=== PATIENT | female | born 1965 | race Caucasian/White ===

== ENCOUNTER 2019-01-27 09:33 | Day surgery (SDC) | payer BC ==
[2019-01-25 14:13] VITALS: BMI 35.8
[~2019-01-27 09:33] MED LIST: LACTATED RINGERS 1,000 ML IV SCH; LIDOCAINE 1% 20 ML VIAL (10MG/ML) FOR IV START INTRADERMA PRN
[2019-01-27 09:55] VITALS: RESP 16; TEMP 98.2
[2019-01-27] MEDS ORDERED: MIDAZOLAM 2 MG/2 ML VIAL ONE (10:38)
[2019-01-27] MEDS ORDERED: fentaNYL (PF) 50 MCG/ML 2 ML AMP ONE (10:38)
[2019-01-27] MEDS ORDERED: PROPOFOL 10 MG/ML 20 ML VIAL IV ONE (10:38)
[2019-01-27 11:21] VITALS: PULSE 74
--- NOTE | 2019-01-27 11:22 | P.PCN ---
Date of Procedure: 01/27/19 Description of Procedure: BRIEF HISTORY: 53-year-old female presents for outpatient screening colonoscopy. The patient reports that she has had a prior colonoscopy approximately 5 years ago when she had a flare of diarrhea which was attributed to a viral/bacterial illness. She denies any change in bowel habits, blood per rectum or diarrhea. She does report chronic constipation at baseline and can go as little as once per week. No family history of colon cancer. PROCEDURE PERFORMED: Colonoscopy. PREOPERATIVE DIAGNOSIS: Screening for malignant neoplasm of the colon, prior colonoscopy approximately 5 years ago for evaluation of diarrhea. ESTIMATED BLOOD LOSS: Minimal. IV sedation per Anesthesia. PROCEDURE: After informed consent was obtained, the patient, was brought into the endoscopy unit. IV sedation was administered by Anesthesia under continuous monitoring. Digital rectal examination was normal. Initially the Olympus CF-190 flexible video colonoscope was then inserted in the rectum, gradually advanced into the cecum without any difficulty. The terminal ileum was intubated and appeared normal. Retroflexion in the cecum was performed with no polyps noted. Careful examination was performed as the scope was gradually being withdrawn. Ileocecal valve and the appendiceal orifice were visualized and appeared normal. Prep was excellent. Mucosa of the cecum, ascending colon, transverse colon, descending colon, sigmoid colon, and rectum appeared normal. A few small diverticula were noted in the sigmoid colon. Mild internal hemorrhoids. Retroflexion was performed in the rectum and no lesions were seen. The patient tolerated the procedure well. IMPRESSION: Normal-appearing colon from rectum to cecum. Mild internal hemorrhoids. Mild sigmoid diverticulosis. RECOMMENDATIONS: Findings of this examination were discussed with the patient. At this time would recommend high-fiber diet. Repeat colonoscopy in 10 years unless signs or symptoms which warrant endoscopic evaluation developed. Have recommended patient started supplementation with MiraLAX for constipation. Follow up with gastroenterology as needed.
[2019-01-27 11:35] VITALS: BP 119/81
== END 2019-01-27 11:49 | disposition home or self-care (01) ==
LOC: ORWHC2ENDO 09:33 → MERGE 13:50
PROVIDERS: ATTEND Internal Medicine
DX: K57.30 Diverticulosis of large intestine without perforation or abscess without bleeding (principal); K64.8 Other hemorrhoids; F17.210 Nicotine dependence, cigarettes, uncomplicated; Z79.1 Long term (current) use of non-steroidal anti-inflammatories (NSAID); Z79.891 Long term (current) use of opiate analgesic; Z79.899 Other long term (current) drug therapy; Z90.49 Acquired absence of other specified parts of digestive tract
CPT/HCPCS: 81025; 45378; J2250; J3010; J2704

== ENCOUNTER → 2023-05-07 | Outpatient (CLI) | payer BC, OTHER ==
--- NOTE | 2023-05-07 09:12 | MM ---
Reason for Exam: Clinical finding. Last mammogram was performed 3 year(s) and 3 month(s) ago. Indicated Problems: Lump or thickening of the left side for 5 Day(s). Patient History: Menarche at age 17. First Full-Term at age 27. Postmenopausal. Risk Values: Dayan 5 year model risk: 1.2%. NCI Lifetime model risk: 8.3%. Prior Study Comparison: 02/08/2020 Bilateral Diagnostic Mammogram, [facility]. Tissue Density: The breast tissue is heterogeneously dense. This may lower the sensitivity of mammography. Findings: Analyzed By CAD. Asymmetric density lower inner quadrant right breast middle depth does not persist on additional views. Low density circumscribed mass upper outer quadrant left breast measuring 2.8 cm may be slightly larger. Features suggest a possible cyst. However, there is a new mass posterior upper outer quadrant near the axillary tail measuring 4.4 cm for which further evaluation is recommended. Overall Assessment: Incomplete: need additional imaging evaluation, BI-RAD 0 Management: Diagnostic Breast Ultrasound of the left breast. Electronically signed and approved by: Benjamin Way M.D. Radiologist
--- NOTE | 2023-05-07 10:02 | USB ---
Reason for Exam: Clinical finding. Patient History: Menarche at age 17. First Full-Term at age 27. Postmenopausal. Risk Values: Dayan 5 year model risk: 1.2%. NCI Lifetime model risk: 8.3%. Technique: Method: Whole Breast Handheld. Prior Study Comparison: 02/08/2020 Bilateral Diagnostic Mammogram, [facility]. Findings: The whole breast of the left breast, the axilla of the left breast and the retroareolar of the left breast were scanned. A complete US of all four quadrants of the breast, axilla, and retro-areolar region were reviewed. At the 2:00 position, 10 cm from the nipple, there is a lobulated hypoechoic mass measuring 4.3 x 3.3 x 2.0 cm with some internal vascularity. Tissue sampling is advised. At the 3:00 position, 5 cm from the nipple, possible enlarged lymph node measuring 1.9 x 3.3 x 1.1 cm. There seems to be cortical thickening up to 4 mm. Given the size and mild cortical thickening, tissue sampling recommended. No other solid or cystic lesion. No axillary lymphadenopathy. Overall Assessment: Highly suggestive of malignancy, BI-RAD 5 Management: Ultrasound Core Biopsy of the left breast. 2 sites Results were given to the patient verbally at the time of exam. Electronically signed and approved by: Benjamin Way M.D. Radiologist
== END | disposition home or self-care (01) ==
LOC: RADMAMWWP 08:10
PROVIDERS: ATTEND Family Medicine
DX: N63.21 Unspecified lump in the left breast, upper outer quadrant (principal); Z78.0 Asymptomatic menopausal state
CPT/HCPCS: 77062; 77066

== ENCOUNTER → 2023-05-13 | Day surgery (SDC) | payer BC, OTHER ==
--- NOTE | 2023-05-19 10:37 | MM ---
Reason for Exam: Post Procedure Mammogram. Last screening mammogram was performed less than 1 month ago. Patient History: Menarche at age 17. First Full-Term at age 27. Postmenopausal. Risk Values: Dayan 5 year model risk: 1.2%. NCI Lifetime model risk: 8.3%. Prior Study Comparison: 02/08/2020 Bilateral Diagnostic Mammogram, [facility]. 05/07/2023 Bilateral MG 3D diag mammo w/cad RADHA, [facility]. Tissue Density: Left: The breast tissue is heterogeneously dense. This may lower the sensitivity of mammography. Pathology Description: Location: 3 o'clock. Marker Left Behind. Needle Type: Celero Cores: 3 Gauge: 12 Pathology Description: Location: 2 o'clock. Marker Left Behind. Needle Type: Celero Cores: 3 Gauge: 12 The procedure of ultrasound guided core biopsy was explained to the patient. Benefits, alternatives, and risks were discussed. An informed consent was then obtained. The patient was placed in supine positioning for imaging and for the procedure. The overlying skin was prepped and draped in usual sterile fashion. Lidocaine buffered with bicarbonate was used as anesthetic into the skin and subcutaneous tissue up to area of concern in the left 2:00 and 3:00 locations. Under ultrasound guidance, a 12-gauge vacuum assisted biopsy gun device was used to obtain 3 core samples from each site. Following this, a biopsy clipswas were deployed in each lesion. The patient tolerated the procedure well without any immediate complication. The patient was kept in the radiology department for short stay after the procedure and then discharged home in stable condition. Postprocedure mammogram: The patient was transferred to mammography for physician ordered post procedure mammogram for clip placement verification. Impression: Successful to site ultrasound guided core biopsy of the left breast at the 3:00 and 2:00 positions. Pathology results are pending. Pathology Results: Result: Malignant, Invasive ductal carcinoma. A. LEFT BREAST, TWO O'CLOCK POSITION, ULTRASOUND GUIDED CORE BIOPSY: Invasive high grade ductal carcinoma, grade 3, with abundant necrosis (see Surgical Pathology Cancer Case Summary and Comment). B. LEFT BREAST, THREE O'CLOCK POSITION, ULTRASOUND GUIDED CORE BIOPSY: Benign sclerotic fibroadenoma with focal microcalcification. Overall Assessment: Malignant Assessment: MG diagnostic mammo LT wo CAD. - Left: Known biopsy proven malignancy, BI-RAD 6. Management: Surgical Consultation of the left breast. Electronically signed and approved by: Bryan Tony M.D. Radiologis
== END | disposition home or self-care (01) ==
LOC: RADUSWWP 10:20
PROVIDERS: ATTEND Surgery
DX: C50.412 Malignant neoplasm of upper-outer quadrant of left female breast (principal); D24.2 Benign neoplasm of left breast; Z17.0 Estrogen receptor positive status [ER+]; Z78.0 Asymptomatic menopausal state
CPT/HCPCS: 88305; 88342; 88341; 77065; 19083; 19084; A4648

== ENCOUNTER → 2023-05-29 | Outpatient (CLI) | payer BC, OTHER ==
--- NOTE | 2023-05-30 12:08 | CA ---
Transthoracic Echo Report Name: Ibeth Menchaca Age: 57 Gender: F : 1965 Exam Date: 05/29/2023 16:20 Exam Location: [facility] Ht (in): 65 Wt (lb): 243 Ordering Physician: Дмитрий Farah MD Attending/Referring Phys: [employer] Equipment Mechanic Latricia Rose [facility] Procedure CPT: Indications: Z01.818 Chemo exposure Cardiac Hx: Technical Quality: Fair Contrast 1: Total Dose (mL): Contrast 2: Total Dose (mL): MEASUREMENTS (Male / Female) Normal Values 2D ECHO LV Diastolic Diameter PLAX 4.9 cm 4.2 - 5.9 / 3.9 - 5.3 cm LV Systolic Diameter PLAX 3.1 cm IVS Diastolic Thickness 1.0 cm 0.6 - 1.0 / 0.6 - 0.9 cm LVPW Diastolic Thickness 1.0 cm 0.6 - 1.0 / 0.6 - 0.9 cm LV Relative Wall Thickness 0.4 LV Diastolic Volume MOD BP 74.4 cm??? 67 - 155 / 56 - 104 cm??? LV Systolic Volume MOD BP 34.8 cm??? 22 - 58 / 19 - 49 cm??? LV Ejection Fraction MOD BP 53.3 % >= 55 % LV Cardiac Index MOD BP 1273.7 cm???/min???m??? LV Diastolic Volume MOD 4C 77.3 cm??? LV Systolic Volume MOD 4C 32.1 cm??? LV Ejection Fraction MOD 4C 58.4 % LV Cardiac Index MOD 4C 1449.7 cm???/min???m??? LV Diastolic Length 4C 7.4 cm LV Systolic Length 4C 5.7 cm LV Diastolic Volume MOD 2C 70.9 cm??? LV Systolic Volume MOD 2C 37.1 cm??? LV Ejection Fraction MOD 2C 47.7 % LV Cardiac Index MOD 2C 1086.0 cm???/min???m??? LV Diastolic Length 2C 7.2 cm LV Systolic Length 2C 6.0 cm Ascending Aorta Diameter 2.9 cm M-MODE Aortic Root Diameter MM 2.6 cm LA Systolic Diameter MM 3.9 cm LA Ao Ratio MM 1.5 AV Cusp Separation MM 1.8 cm DOPPLER AV Peak Velocity 153.8 cm/s AV Peak Gradient 9.5 mmHg AV Mean Velocity 113.0 cm/s AV Mean Gradient 5.6 mmHg AV Velocity Time Integral 33.9 cm LVOT Peak Velocity 105.8 cm/s LVOT Peak Gradient 4.5 mmHg LVOT Velocity Time Integral 22.8 cm Mitral E Point Velocity 75.0 cm/s Mitral A Point Velocity 84.0 cm/s Mitral E to A Ratio 0.9 MV Deceleration Time 205.7 ms LV E' Lateral Velocity 9.8 cm/s Mitral E to LV E' Lateral Ratio 7.6 LV E' Septal Velocity 7.5 cm/s Mitral E to LV E' Septal Ratio 9.9 Right Atrial Pressure 3.0 mmHg FINDINGS Left Ventricle Mildly increased left ventricular wall thickness. Left ventricular cavity size at the upper limits of normal. Normal left ventricular systolic function with no obvious regional wall motion abnormalities. Left ventricular ejection fraction is estimated at 55-60% Right Ventricle Normal right ventricular size. Right Atrium Normal right atrial size. Left Atrium Mild left atrial dilatation. Mitral Valve Structurally normal mitral valve. No mitral regurgitation. Aortic Valve Trileaflet aortic valve. No aortic regurgitation. Tricuspid Valve Structurally normal tricuspid valve. No tricuspid regurgitation. Pulmonic Valve Structurally normal pulmonic valve. No pulmonic regurgitation. Pericardium No pericardial effusion Aorta Normal size aortic root and proximal ascending aorta. CONCLUSIONS Left ventricular ejection fraction 55-60% Mildly increased left ventricular wall thickness No mitral regurgitation No tricuspid regurgitation No pericardial effusion Previewed by: Dr. Lester Cisneros DO (Electronically Signed) Final Date: 30 May 2023 12:07
--- NOTE | 2023-05-31 13:23 | CT ---
EXAMINATION TYPE: CT ChestAbdPelvis w con DATE OF EXAM: 05/29/2023 INDICATION: recent breast ca dx. COMPARISON: 09/07/2017 CT abdomen and pelvis CT DLP: 2166.30 mGycm CONTRAST: Performed with Oral Contrast and with IV Contrast, patient injected with 90 mL of Isovue 300. TECHNIQUE: Axial images at 5 mm thick sections. Reconstructed images in the coronal plane. Delayed images through the kidneys. FINDINGS: CT CHEST: Portion of the thyroid visualized is normal. No suspicious lung nodules or focal infiltrates are present. No enlarged mediastinal or hilar adenopathy is evident. The ascending aorta diameter at the level of the main pulmonary artery is 2.7 cm. The main pulmonary artery diameter at the bifurcation is 2.0 cm. There are 2 left breast masses. Suspicious left axillary lymphadenopathy is not evident. CT ABDOMEN: Liver: There is some mild fatty infiltration liver. Spleen: Normal Pancreas: Normal Adrenal glands: The adrenal glands are normal. Gallbladder: Normal Kidneys: No masses are evident. No hydronephrosis is present. Delayed images were obtained through the kidneys, small cortical renal cysts are identified on the delayed images. Aorta: Normal Inferior vena cava: Normal. CT PELVIS: Loops of bowel within the abdomen and pelvis are normal. There are loops of bowel which are incom pletely distended or lack oral contrast limiting their evaluation. Appendix: Normal as visualized. Urinary bladder: Normal. Genitourinary structures: Uterus is unremarkable. Adnexa are normal. Osseous structures: No suspicious lytic or sclerotic lesions. IMPRESSION: 1. No suspicious changes to suggest metastatic breast cancer. 2. Two masses within the left breast.
== END | disposition home or self-care (01) ==
LOC: RADCTMAIN 13:59
PROVIDERS: ATTEND Internal Medicine Hematology & Oncology
DX: Z01.818 Encounter for other preprocedural examination (principal); C50.412 Malignant neoplasm of upper-outer quadrant of left female breast; N63.20 Unspecified lump in the left breast, unspecified quadrant
CPT/HCPCS: 93306; 71260; 74177; Q9967

== ENCOUNTER 2023-06-04 12:17 | Day surgery (SDC) | payer BC, OTHER ==
[~2023-06-04 12:17] MED LIST changes: +ACETAMINOPHEN TAB 500 MG TAB PO PRN; +DEXAMETHASONE SOD PHOSPHATE 4 MG/ML 1 ML VIAL IV ONE; +HEPARIN SODIUM,PORCINE/PF 5,000 UNIT/0.5 ML SYRINGE SQ PRN; +HYDROmorphone 0.5 MG/0.5 ML SYRINGE IVP PRN; -LACTATED RINGERS 1,000 ML IV SCH; +LIDOCAINE 1% (10MG/ML) FOR IV START INTRADERMA PRN; -LIDOCAINE 1% 20 ML VIAL (10MG/ML) FOR IV START INTRADERMA PRN; +MIDAZOLAM 2 MG/2 ML VIAL IV PRN; +ONDANSETRON 4 MG/2 ML VIAL IVP ONE; +Pre Op ABX Message 1 EACH MISC MISCELLANE ONE
[2023-06-04 13:02] VITALS: RESP 16; TEMP 97.5
[2023-06-04] MEDS: LACTATED RINGERS 1,000 ML IV SCH ×2 (13:10→17:06)
--- NOTE | 2023-06-04 15:35 | P.GSHP ---
History of Present Illness H&P Date: 06/04/23 Chief Complaint: Left breast cancer 57-year-old female with recently diagnosed left breast cancer. Patient was seen by oncology. Please refer to their history and physical. Patient is being suggested to undergo neoadjuvant treatment. Recent receptor studies did come back showing the malignancy as HER-2 positive. She is here today for Port-A-Cath placement. Past Medical History Past Medical History: Cancer Additional Past Medical History / Comment(s): L breast cancer, IBS, ovarian cysts History of Any Multi-Drug Resistant Organisms: None Reported Past Surgical History: Cholecystectomy, Orthopedic Surgery Additional Past Surgical History / Comment(s): bunionectomy, C4 neck surgery 2020, carpal tunnel L release, L breast core biopsy, colonoscopy, endoscopy. Past Anesthesia/Blood Transfusion Reactions: Postoperative Nausea & Vomiting (PONV) Additional Past Anesthesia/Blood Transfusion Reaction / Comment(s): PONV after one surgery Smoking Status: Current every day smoker - Past Family History Mother Family Medical History: No Reported History Medications and Allergies Home Medications Medication Instructions Recorded Confirmed Type DULoxetine HCL [Cymbalta] 60 mg PO HS 05/07/23 06/04/23 History Dicyclomine [Bentyl] 10 mg PO QID PRN 05/07/23 06/04/23 History Famotidine [Pepcid] 40 mg PO DAILY PRN 05/07/23 06/04/23 History Loratadine [Claritin] 10 mg PO DAILY PRN 05/07/23 06/04/23 History buPROPion XL [Wellbutrin XL] 300 mg PO QAM 05/07/23 06/04/23 History Naproxen Sodium [Aleve] 220 mg PO BID PRN 06/02/23 06/04/23 History Allergies Allergy/AdvReac Type Severity Reaction Status Date / Time No Known Allergies Allergy Verified 06/04/23 12:42 Surgical - Exam Vital Signs Temp Pulse Resp BP Pulse Ox 97.5 F L 76 16 119/56 99 06/04/23 12:39 06/04/23 12:39 06/04/23 12:39 06/04/23 12:39 06/04/23 12:39 Physical exam: General: Well-developed, well-nourished HEENT: Normocephalic, sclerae nonicteric Abdomen: Nontender, nondistended Extremities: No edema Neuro: Alert and oriented Assessment and Plan (1) Breast cancer, left Narrative/Plan: 57-year-old female with HER-2 positive left breast cancer. We'll proceed with Port-A-Cath placement at this time. Risks of bleeding, infection, DVT, pneumothorax, catheter malfunction, anesthesia related complications were discussed. The patient understands and wishes to proceed. Current Visit: Yes Status: Acute Code(s): C50.912 - MALIGNANT NEOPLASM OF UNSPECIFIED SITE OF LEFT FEMALE BREAST SNOMED Code(s): 231073342
[2023-06-04] MEDS ORDERED: PROPOFOL 10 MG/ML 20 ML VIAL IV ONE (17:05)
[2023-06-04] MEDS ORDERED: MIDAZOLAM 2 MG/2 ML VIAL ONE (17:05)
[2023-06-04] MEDS ORDERED: LIDOCAINE 1% INJ 10MG/ML (20 ML MDV) ONE (17:05)
[2023-06-04] MEDS ORDERED: HYDROmorphone (PF) 1 MG/ML ONE (17:05)
[2023-06-04] MEDS ORDERED: fentaNYL (PF) 50 MCG/ML 2 ML AMP ONE (17:05)
[2023-06-04] MEDS ORDERED: LIDOCAINE 1% INJ 10MG/ML (30 ML VIAL-PF) SQ ONE ×2 (17:07)
[2023-06-04] MEDS ORDERED: HYDROcodone/APAP 5-325MG 1 EACH TAB PO PRN (18:18)
[2023-06-04] MEDS ORDERED: NALOXONE 0.4 MG/ML 1 ML VIAL IV PRN (18:18)
--- NOTE | 2023-06-04 18:19 | P.OP ---
Date of Procedure: 06/04/23 Procedure(s) Performed: PREOPERATIVE DIAGNOSIS: Left breast cancer POSTOPERATIVE DIAGNOSIS: Same PROCEDURE: Port-A-Cath placement with fluoroscopic and ultrasound guidance SURGEON: Christiano EBL: Minimal ANESTHESIA: General COMPLICATIONS: None OPERATIVE PROCEDURE: Patient was brought and placed on the operative table in the supine position. The patient was placed under general anesthesia at that time. The chest and neck were prepped and draped in usual sterile fashion. The ultrasound probe was used to identify the location of the right internal jugular vein. The skin was localized with lidocaine. The Seldinger needle was advanced into the IJ under ultrasound guidance. The wire was advanced through the needle under fluoroscopic guidance into the superior vena cava. A port pocket was created in the right infraclavicular location. The catheter was tunneled from the wire entrance site to the port pocket. The port was then connected to the catheter. The dilator introducer was threaded over the guidewire. The guidewire and dilator were then removed. The catheter was advanced through the introducer and introducer was then removed. The tip was seen to be in the right atrial junction via fluoroscopy. A picture of the radiograph showing the tip of the catheter was taken. Port was flushed with both saline and a Hep-Lock solution. There was good flow both in and out of the port. The port was sutured in underlying tissues using 3-0 silk sutures. The subcutaneous tissues were reapproximated using 3-0 Vicryl sutures and the skin at both locations using 4-0 Monocryl sutures. Skin glue and sterile dressings then applied. DISPOSITION: Stable to recovery room
[2023-06-04] MEDS ORDERED: LACTATED RINGERS 1,000 ML IV ONE (18:48)
--- NOTE | 2023-06-04 19:04 | XR ---
EXAMINATION: XR chest 1V confirm line [facility] DATE AND TIME: 06/04/2023 6:44 PM CLINICAL INDICATION: [facility]; Check line placement TECHNIQUE: AP portable upright COMPARISON: 03/11/2016 FINDINGS: Right IJ catheter tip superimposed over the cavoatrial junction. No pneumothorax; the pleural spaces are negative. The lungs are hypoinflated at the moment of x-ray exposure, this factor crowds the pulmonary vasculat ure. There are a few linear bands of added opacity consistent with subsegmental atelectasis, but no o ther definite acute lung parenchymal process. The cardiac silhouette is not enlarged. The skeletal structures and soft tissues are negative for acute findings. IMPRESSION: Check line placement CXR.
[2023-06-04 19:27] VITALS: BP 116/62; PULSE 87
--- NOTE | 2023-06-05 08:33 | FL ---
EXAMINATION TYPE: FL guided central line placemt HISTORY: Fluoroscopy time Impression: 1. Fluoroscopy support provided to the referring physician.
== END 2023-06-04 19:35 ==
LOC: OR 12:17
PROVIDERS: ATTEND Surgery
DX: C50.912 Malignant neoplasm of unspecified site of left female breast (principal); K58.9 Irritable bowel syndrome, unspecified; F17.200 Nicotine dependence, unspecified, uncomplicated; Z85.3 Personal history of malignant neoplasm of breast; Z90.49 Acquired absence of other specified parts of digestive tract; Z98.890 Other specified postprocedural states; Z79.891 Long term (current) use of opiate analgesic; Z79.1 Long term (current) use of non-steroidal anti-inflammatories (NSAID); Z79.2 Long term (current) use of antibiotics; Z79.899 Other long term (current) drug therapy
CPT/HCPCS: 77001; 36561; C1788; J2250; J1100; J2405; J2001 ×2; J3010; J1170; J1642; J2704; J1644

== ENCOUNTER 2023-06-20 11:55 | Inpatient (IN) | payer BC, OTHER ==
[2023-06-20] MEDS ORDERED: IBUPROFEN 600 MG TAB PO STA (12:25)
[2023-06-20] MEDS ORDERED: MORPHINE SULFATE 4 MG/ML SYRINGE IV STA (12:25)
[2023-06-20] MEDS ORDERED: ONDANSETRON 4 MG/2 ML VIAL IVP STA (12:25)
[2023-06-20] MEDS ORDERED: ACETAMINOPHEN TAB 500 MG TAB PO STA (12:25)
[2023-06-20] MEDS ORDERED: SODIUM CHLORIDE 0.9% 1,000 ML IV STA ×2 (12:25)
[2023-06-20 13:15] LABS: Appearance,Urine Cloudy (Clear); Bacteria,Urine Rare /hpf; Bilirubin,Urine Negative (Negative); Blood,Urine Negative (Negative); Color,Urine Yellow; Glucose,Urine (UA) Negative (Negative); Ketones,Urine Negative (Negative); Leukocyte Esterase,Urine Negative (Negative); Mucus,Urine Rare /hpf; Nitrite,Urine Negative (Negative); Protein,Urine Negative (Negative); Specific Gravity,Urine 1.021 (1.001-1.035); Squamous Epithelial Cell,Urine 2 /hpf (0-4); Urobilinogen,Urine <2.0 mg/dL (<2.0); WBC,Urine 1 /hpf (0-5)
[2023-06-20 13:20] LABS: Partial Thromboplastin Time 25.9 sec (22.0-30.0); Prothrombin Time 10.6 sec (10.0-12.5)
[2023-06-20 13:21] LABS: ALT 40 U/L (4-34); AST 22 U/L (14-36); African American GFR (CKD) >90 (>60 ml/min/1.73 sqM); Albumin 3.9 g/dL (3.5-5.0); Alkaline Phosphatase 70 U/L (38-126); Anion Gap 12 mmol/L; Blood Urea Nitrogen 10 mg/dL (7-17); Calcium 8.5 mg/dL (8.4-10.2); Carbon Dioxide 21 mmol/L (22-30); Chloride 99 mmol/L (98-107); Glucose 124 mg/dL (74-99); Non-African American GFR(CKD) >90 (>60 ml/min/1.73 sqM); Phosphorus 2.9 mg/dL (2.5-4.5); Potassium 3.8 mmol/L (3.5-5.1); Sodium 132 mmol/L (137-145); Total Bilirubin 0.5 mg/dL (0.2-1.3); Total Protein 6.5 g/dL (6.3-8.2)
[2023-06-20 13:23] LABS: HCT 38.8 % (34.0-46.0); HGB 12.7 gm/dL (11.4-16.0); MCH 30.7 pg (25.0-35.0); MCHC 32.8 g/dL (31.0-37.0); MCV 93.5 fL (80.0-100.0); Mean Platelet Volume 8.6; Platelet Count 143 k/uL (150-450); RBC 4.15 m/uL (3.80-5.40); RDW 12.5 % (11.5-15.5)
[2023-06-20 13:25] LABS: WBC 0.8 k/uL (3.8-10.6)
--- NOTE | 2023-06-20 13:28 | ED ---
Fever HPI - General Chief Complaint: Fever Stated Complaint: fever Time Seen by Provider: 06/20/23 12:20 Source: patient, RN notes reviewed, old records reviewed Mode of arrival: ambulatory Limitations: no limitations - History of Present Illness Initial Comments: This is a 57-year-old female to the emergency department today. Patient states that she is not feeling well. Patient has weakness generalized and noted a fever today. Currently going to chemotherapy for breast cancer. Patient did call primary care and oncology center to come to the emergency room today. No nausea vomiting or diarrhea. She has felt cold weak and shaky, at times sweaty MD Complaint: fever, malaise, weakness -: hour(s) Temperature Source: subjective Context: on chemotherapy Associated Symptoms: chills, myalgias Treatments Prior to Arrival: none - Related Data Home Medications Medication Instructions Recorded Confirmed DULoxetine HCL [Cymbalta] 60 mg PO HS 05/07/23 06/20/23 Dicyclomine [Bentyl] 10 mg PO QID PRN 05/07/23 06/20/23 Famotidine [Pepcid] 40 mg PO DAILY PRN 05/07/23 06/20/23 Loratadine [Claritin] 10 mg PO DAILY PRN 05/07/23 06/20/23 buPROPion XL [Wellbutrin XL] 300 mg PO DAILY 05/07/23 06/20/23 Naproxen Sodium [Aleve] 220 mg PO BID PRN 06/02/23 06/20/23 Fluticasone Nasal [place] [Flonase 1 spray EA NOSTRIL DAILY PRN 06/20/23 06/20/23 Nasal [place]] Lidocaine-Prilocaine Cream [Emla 1 applic TOPICAL DAILY PRN 06/20/23 06/20/23 Cream 2.5%/2.5%] Ondansetron [Zofran] 4 mg PO Q6H PRN 06/20/23 06/20/23 Prochlorperazine [Compazine] 10 mg PO Q6H PRN 06/20/23 06/20/23 dexAMETHasone [Decadron] 8 mg PO DIRECTED 06/20/23 06/20/23 Previous Rx's Medication Instructions Recorded HYDROcodone/APAP 5-325MG [[place] 1 tab PO Q6HR PRN 3 Days #10 tab 06/04/23 5-325] Amoxic-Pot Clav 500-125 mg 1 tab PO Q12HR 5 Days #10 tab 06/24/23 [Augmentin 500-125 mg] Cholestyramine (with Sugar) 4 gm PO BID@1000,1800 7 Days #14 06/24/23 [Questran Packet] packet Loperamide [Imodium] 2 mg PO QID PRN 3 Days #12 cap 06/24/23 Allergies Allergy/AdvReac Type Severity Reaction Status Date / Time No Known Allergies Allergy Verified 06/20/23 14:15 Review of Systems ROS Statement: Those systems with pertinent positive or pertinent negative responses have been documented in the HPI. ROS Other: All systems not noted in ROS Statement are negative. Past Medical History Past Medical History: No Reported History Additional Past Medical History / Comment(s): ovarian cyst, stage 2 breast cx- may 21-2022 History of Any Multi-Drug Resistant Organisms: None Reported Past Surgical History: Cholecystectomy Additional Past Surgical History / Comment(s): bunionectomy, C4 neck surgery 2020 Past Anesthesia/Blood Transfusion Reactions: Postoperative Nausea & Vomiting (PONV) Additional Past Anesthesia/Blood Transfusion Reaction / Comment(s): PONV after one surgery Past Psychological History: Anxiety, Depression Smoking Status: Current every day smoker Past Alcohol Use History: None Reported Past Drug Use History: None Reported - Past Family History Mother Family Medical History: No Reported History General Exam Limitations: no limitations General appearance: alert, in no apparent distress, anxious Head exam: Present: atraumatic, normocephalic, normal inspection Eye exam: Present: normal appearance, PERRL, EOMI. Absent: scleral icterus, con junctival injection, periorbital swelling ENT exam: Present: normal exam, mucous membranes moist Neck exam: Present: normal inspection. Absent: tenderness, meningismus, lymphadenopathy Respiratory exam: Present: normal lung sounds bilaterally. Absent: respiratory distress, wheezes, rales, rhonchi, stridor Cardiovascular Exam: Present: regular rate, normal rhythm, normal heart sounds. Absent: systolic murmur, diastolic murmur, rubs, gallop, clicks GI/Abdominal exam: Present: soft, normal bowel sounds. Absent: distended, tenderness, guarding, rebound, rigid Extremities exam: Present: normal inspection, full ROM, normal capillary refill. Absent: tenderness, pedal edema, joint swelling, calf tenderness Back exam: Present: normal inspection Neurological exam: Present: alert, oriented X3, CN II-XII intact Psychiatric exam: Present: normal affect, normal mood Skin exam: Present: warm, dry, intact, normal color. Absent: rash Course Vital Signs 06/20/23 06/20/23 06/20/23 12:16 12:30 13:00 Temperature 101.1 F H Pulse Rate 100 98 Respiratory 20 18 16 Rate Blood Pressure 120/77 139/70 123/65 O2 Sat by Pulse 99 98 Oximetry 06/20/23 06/20/23 06/20/23 13:30 13:54 14:00 Temperature 99.7 F H Pulse Rate 96 Respiratory 18 16 Rate Blood Pressure 123/65 117/60 O2 Sat by Pulse Oximetry - Reevaluation(s) Reevaluation #1: 06/20/23 13:39 Records reviewed Reevaluation #2: 06/20/23 13:39 Patient denying any specific complaints is feeling weak and unwell Reevaluation #3: 06/20/23 13:39 Patient informed of results questions answered Reevaluation #4: 06/20/23 13:28 Was pt. sent in by a medical professional or institution (, PA, SENIOR AIR DIRECTOR, urgent care, hospital, or intermediate...) When possible be specific @ -no Did you speak to anyone other than the patient for history (EMS, parent, family, police, friend...)? What history was obtained from this source @ -no Did you review nursing and triage notes (agree or disagree)? Why? @ -agree Are old charts reviewed (outside hosp., previous admission, EMS record, old EKG, old radiological studies, urgent care reports/EKG's, intermediate records)? Report findings @ -yes Differential Diagnosis (chest pain, altered mental status, abdominal pain women, abdominal pain men, vaginal bleeding, weakness, fever, dyspnea, syncope, headache, dizziness, GI bleed, back pain, seizure, CVA, palpatations, mental health, musculoskeletal)? @ -prior EKG interpreted by me (3pts min.). @ -yes X-rays interpreted by me (1pt min.). @ -yes CT interpreted by me (1pt min.). @ -no U/S interpreted by me (1pt. min.). @ -no What testing was considered but not performed or refused? (CT, X-rays, U/S, labs)? Why? @ -none What meds were considered but not given or refused? Why? @ -none Did you discuss the management of the patient with other professionals (professionals i.e. , PA, SENIOR AIR DIRECTOR, lab, RT, psych nurse, social science teacher, counter pocket sewer, teacher, chief digital media officer, employment evaluator/case manager)? Give summary @ -no Was smoking cessation discussed for >3mins.? @ -no Was critical care preformed (if so, how long)? @ -no Were there social determinants of health that impacted care today? How? (Ho melessness, low income, unemployed, alcoholism, drug addiction, transportation, low edu. Level, literacy, decrease access to med. care, half-way, rehab)? @ -none Was there de-escalation of care discussed even if they declined (Discuss DNR or withdrawal of care, Hospice)? DNR status @ -no What co-morbidities impacted this encounter? (DM, HTN, Smoking, COPD, CAD, Cancer, CVA, ARF, Chemo, Hep., AIDS, mental health diagnosis, sleep apnea, morbid obesity)? @ -none Was patient admitted / discharged? Hospital course, mention meds given and route, prescriptions, significant lab abnormalities, going to OR and other pertinent info. @ - 57 female to the emergency department for evaluation of weakness and fever with known history of breast cancer, positive neutropenic fever patient will be admitted for IV antibiotics and culture evaluation Admitted Undiagnosed new problem with uncertain prognosis? @ -no Drug Therapy requiring intensive monitoring for toxicity (Heparin, Nitro, Insulin, Cardizem)? @ -no Were any procedures done? @ -no Diagnosis/symptom? @ -Neutropenic fever Acute, or Chronic, or Acute on Chronic? @ -Acute Uncomplicated (without systemic symptoms) or Complicated (systemic symptoms)? @ -Complicated Side effects of treatment? @ -no Exacerbation, Progression, or Severe Exacerbation? @ -exacerbation Poses a threat to life or bodily function? How? (Chest pain, [place], [place], pneumonia, PE, COPD, DKA, ARF, appy, cholecystitis, CVA, Diverticulitis, Homicidal, Suicidal, threat to staff... and all critical care pts) @ -yes with fever sepsis and immunosuppression Reevaluation #5: 06/20/23 13:28 Differential Fever: Pneumonia, viral URI, endocarditis, myocarditis, pericarditis, otitis, sinusitis, peritonsillar Abscess, retropharyngeal Abscess, epiglottitis, peritonitis, appendicitis, [place] cystitis, diverticulitis, hepatitis, colitis, UTI, PID, TOA, pyelonephritis, prostatitis, epididymitis, meningitis, encephalitis, pulmonary embolism, CVA, thyroid storm, pancreatitis, adrenal crisis, cavernous sinus thrombosis, this is not meant to be an all-inclusive list. - Consultations Consultation #1: Spoke with [facility] will admit this patient Medical Decision Making - Medical Decision Making 57 female to the emergency department for evaluation of weakness and fever with known history of breast cancer, positive neutropenic fever patient will be admitted for IV antibiotics and culture evaluation - Lab Data Result diagrams: 06/24/23 04:52 06/24/23 04:52 Lab Results 06/20/23 06/20/23 06/20/23 Range/Units 12:29 12:29 12:29 WBC 0.8 L* (3.8-10.6) k/uL RBC 4.15 (3.80-5.40) m/uL Hgb 12.7 (11.4-16.0) gm/dL Hct 38.8 (34.0-46.0) % MCV 93.5 (80.0-100.0) fL MCH 30.7 (25.0-35.0) pg MCHC 32.8 (31.0-37.0) g/dL RDW 12.5 (11.5-15.5) % Plt Count 143 L (150-450) k/uL MPV 8.6 Differential Comment Manual Slide Review Performed RBC Morphology Normal PT 10.6 (10.0-12.5) sec INR 1.0 (<1.2) APTT 25.9 (22.0-30.0) sec Sodium 132 L (137-145) mmol/L Potassium 3.8 (3.5-5.1) mmol/L Chloride 99 (98-107) mmol/L Carbon Dioxide 21 L (22-30) mmol/L Anion Gap 12 mmol/L BUN 10 (7-17) mg/dL Creatinine 0.59 (0.52-1.04) mg/dL Est GFR (CKD-EPI)AfAm >90 (>60 ml/min/1.73 sqM) Est GFR (CKD-EPI)NonAf >90 (>60 ml/min/1.73 sqM) Glucose 124 H (74-99) mg/dL Plasma Lactic Acid Ronal (0.7-2.0) mmol/L Calcium 8.5 (8.4-10.2) mg/dL Phosphorus 2.9 (2.5-4.5) mg/dL Total Bilirubin 0.5 (0.2-1.3) mg/dL AST 22 (14-36) U/L ALT 40 H (4-34) U/L Alkaline Phosphatase 70 (38-126) U/L Troponin I (0.000-0.034) ng/mL NT-Pro-B Natriuret Pep <20 pg/mL Total Protein 6.5 (6.3-8.2) g/dL Albumin 3.9 (3.5-5.0) g/dL TSH 0.325 L (0.465-4.680) mIU/L Urine Color Urine Appearance (Clear) Urine pH (5.0-8.0) Ur Specific [place] (1.001-1.035) Urine Protein (Negative) Urine Glucose (UA) (Negative) Urine Ketones (Negative) Urine Blood (Negative) Urine Nitrite (Negative) Urine Bilirubin (Negative) Urine Urobilinogen (<2.0) mg/dL Ur Leukocyte Esterase (Negative) Urine WBC (0-5) /hpf Ur Squamous Epith Cells (0-4) /hpf Urine Bacteria (None) /hpf Urine Mucus (None) /hpf Influenza Type A (PCR) (Not Detectd) Influenza Type B (PCR) (Not Detectd) Urine Legionella Ag (Negative) RSV (PCR) (Not Detectd) SARS-CoV-2 (PCR) (Not Detectd) 06/20/23 06/20/23 06/20/23 Range/Units 12:29 12:29 12:29 WBC (3.8-10.6) k/uL RBC (3.80-5.40) m/uL Hgb (11.4-16.0) gm/dL Hct (34.0-46.0) % MCV (80.0-100.0) fL MCH (25.0-35.0) pg MCHC (31.0-37.0) g/dL RDW (11.5-15.5) % Plt Count (150-450) k/uL MPV Differential Comment Manual Slide Review RBC Morphology PT (10.0-12.5) sec INR (<1.2) APTT (22.0-30.0) sec Sodium (137-145) mmol/L Potassium (3.5-5.1) mmol/L Chloride (98-107) mmol/L Carbon Dioxide (22-30) mmol/L Anion Gap mmol/L BUN (7-17) mg/dL Creatinine (0.52-1.04) mg/dL Est GFR (CKD-EPI)AfAm (>60 ml/min/1.73 sqM) Est GFR (CKD-EPI)NonAf (>60 ml/min/1.73 sqM) Glucose (74-99) mg/dL Plasma Lactic Acid Ronal 1.7 (0.7-2.0) mmol/L Calcium (8.4-10.2) mg/dL Phosphorus (2.5-4.5) mg/dL Total Bilirubin (0.2-1.3) mg/dL AST (14-36) U/L ALT (4-34) U/L Alkaline Phosphatase (38-126) U/L Troponin I <0.012 (0.000-0.034) ng/mL NT-Pro-B Natriuret Pep pg/mL Total Protein (6.3-8.2) g/dL Albumin (3.5-5.0) g/dL TSH (0.465-4.680) mIU/L Urine Color Yellow Urine Appearance Cloudy H (Clear) Urine pH 5.0 (5.0-8.0) Ur Specific [place] 1.021 (1.001-1.035) Urine Protein Negative (Negative) Urine Glucose (UA) Negative (Negative) Urine Ketones Negative (Negative) Urine Blood Negative (Negative) Urine Nitrite Negative (Negative) Urine Bilirubin Negative (Negative) Urine Urobilinogen <2.0 (<2.0) mg/dL Ur Leukocyte Esterase Negative (Negative) Urine WBC 1 (0-5) /hpf Ur Squamous Epith Cells 2 (0-4) /hpf Urine Bacteria Rare H (None) /hpf Urine Mucus Rare H (None) /hpf Influenza Type A (PCR) (Not Detectd) Influenza Type B (PCR) (Not Detectd) Urine Legionella Ag (Negative) RSV (PCR) (Not Detectd) SARS-CoV-2 (PCR) (Not Detectd) 06/20/23 06/20/23 Range/Units 12:29 12:29 WBC (3.8-10.6) k/uL RBC (3.80-5.40) m/uL Hgb (11.4-16.0) gm/dL Hct (34.0-46.0) % MCV (80.0-100.0) fL MCH (25.0-35.0) pg MCHC (31.0-37.0) g/dL RDW (11.5-15.5) % Plt Count (150-450) k/uL MPV Differential Comment Manual Slide Review RBC Morphology PT (10.0-12.5) sec INR (<1.2) APTT (22.0-30.0) sec Sodium (137-145) mmol/L Potassium (3.5-5.1) mmol/L Chloride (98-107) mmol/L Carbon Dioxide (22-30) mmol/L Anion Gap mmol/L BUN (7-17) mg/dL Creatinine (0.52-1.04) mg/dL Est GFR (CKD-EPI)AfAm (>60 ml/min/1.73 sqM) Est GFR (CKD-EPI)NonAf (>60 ml/min/1.73 sqM) Glucose (74-99) mg/dL Plasma Lactic Acid Ronal (0.7-2.0) mmol/L Calcium (8.4-10.2) mg/dL Phosphorus (2.5-4.5) mg/dL Total Bilirubin (0.2-1.3) mg/dL AST (14-36) U/L ALT (4-34) U/L Alkaline Phosphatase (38-126) U/L Troponin I (0.000-0.034) ng/mL NT-Pro-B Natriuret Pep pg/mL Total Protein (6.3-8.2) g/dL Albumin (3.5-5.0) g/dL TSH (0.465-4.680) mIU/L Urine Color Urine Appearance (Clear) Urine pH (5.0-8.0) Ur Specific [place] (1.001-1.035) Urine Protein (Negative) Urine Glucose (UA) (Negative) Urine Ketones (Negative) Urine Blood (Negative) Urine Nitrite (Negative) Urine Bilirubin (Negative) Urine Urobilinogen (<2.0) mg/dL Ur Leukocyte Esterase (Negative) Urine WBC (0-5) /hpf Ur Squamous Epith Cells (0-4) /hpf Urine Bacteria (None) /hpf Urine Mucus (None) /hpf Influenza Type A (PCR) Not Detected (Not Detectd) Influenza Type B (PCR) Not Detected (Not Detectd) Urine Legionella Ag Negative (Negative) RSV (PCR) Not Detected (Not Detectd) SARS-CoV-2 (PCR) Not Detected (Not Detectd) - EKG Data -: EKG Interpreted by Me (EKG is sinus 90 IN 151 QRS 47 QTc 450) - Radiology Data Radiology results: report reviewed (Chest x-rays negative for acute), image reviewed Critical Care Time Critical Care Time: Yes Total Critical Care Time: 31 Disposition Clinical Impression: Neutropenic fever, Breast cancer, left, Fever, Weakness Disposition: ADMITTED IP TO THIS HOSP Condition: Stable Is patient prescribed a controlled substance at d/c from ED?: No Time of Disposition: 13:45
[2023-06-20 13:29] LABS: NT-Pro-B-Type Natriuretic Pept <20 pg/mL
[2023-06-20] MEDS ORDERED: PIPERACILLIN-TAZOBACTAM 3.375 GM in SODIUM CHLORIDE 0.9% 100 ML IVPB STA (13:31)
[2023-06-20] MEDS ORDERED: VANCOMYCIN IV PER PHARMACY 1 EACH MISC MISCELLANE PRN (13:31)
[2023-06-20 13:37] LABS: RBC Morphology Normal
[2023-06-20] MEDS ORDERED: IBUPROFEN 400 MG TAB PO PRN (13:40)
[2023-06-20] MEDS ORDERED: MORPHINE SULFATE 4 MG/ML SYRINGE IV PRN (13:40)
[2023-06-20] MEDS ORDERED: NALOXONE 0.4 MG/ML 1 ML VIAL IV PRN (13:40)
[2023-06-20] MEDS: SODIUM CHLORIDE 0.9% 1,000 ML IV SCH ×2 (13:51→23:15)
--- NOTE | 2023-06-20 14:26 | XR ---
EXAMINATION TYPE: XR chest 2V DATE OF EXAM: 06/20/2023 COMPARISON: 06/04/2023 HISTORY: 57-year-old female with fever and weakness TECHNIQUE: AP and lateral views FINDINGS: Right anterior chest wall injection port with catheter tip at the cavoatrial junction. Heart normal s ize. Peribronchial cuffing and interstitial prominence is similar to from prior. ACDF hardware. No co nsolidation or pleural effusion. IMPRESSION: Interstitial changes have improved compared to 06/04/2023. Residual changes remain. Consider bronchiti s/asthma or improving atypical/COVID pneumonia.
[2023-06-20] MEDS ORDERED: VANCOMYCIN 2,000 MG in SODIUM CHLORIDE 0.9% 500 ML 500 ML IVPB ONE (15:00)
[2023-06-20] MEDS: ONDANSETRON 4 MG/2 ML VIAL IVP PRN (18:37)
[2023-06-20] MEDS: ACETAMINOPHEN TAB 325 MG TAB PO PRN (19:54)
[2023-06-20] MEDS: PIPERACILLIN-TAZOBACTAM 3.375 GM in SODIUM CHLORIDE 0.9% 100 ML IVPB SCH (21:03)
[2023-06-21] MEDS: PIPERACILLIN-TAZOBACTAM 3.375 GM in SODIUM CHLORIDE 0.9% 100 ML IVPB SCH ×3 (03:07→20:34)
[2023-06-21] MEDS: VANCOMYCIN 2,000 MG in SODIUM CHLORIDE 0.9% 500 ML 500 ML IVPB SCH ×2 (03:59→17:03)
[2023-06-21] MEDS: ONDANSETRON 4 MG/2 ML VIAL IVP PRN (03:59)
[2023-06-21] MEDS: SODIUM CHLORIDE 0.9% 1,000 ML IV SCH ×3 (06:51→20:34)
[2023-06-21 08:36] LABS: ALT 32 U/L (4-34); AST 18 U/L (14-36); African American GFR (CKD) >90 (>60 ml/min/1.73 sqM); Albumin 3.4 g/dL (3.5-5.0); Albumin/Globulin Ratio 1.3; Alkaline Phosphatase 70 U/L (38-126); Anion Gap 8 mmol/L; Blood Urea Nitrogen 7 mg/dL (7-17); Calcium 8.3 mg/dL (8.4-10.2); Carbon Dioxide 21 mmol/L (22-30); Chloride 104 mmol/L (98-107); Globulin 2.6 g/dL; Glucose 118 mg/dL (74-99); Magnesium 1.8 mg/dL (1.6-2.3); Non-African American GFR(CKD) >90 (>60 ml/min/1.73 sqM); Phosphorus 2.6 mg/dL (2.5-4.5); Potassium 3.4 mmol/L (3.5-5.1); Sodium 133 mmol/L (137-145); Total Bilirubin 0.6 mg/dL (0.2-1.3)
[2023-06-21] MEDS ORDERED: PANTOPRAZOLE 40 MG/10 ML VIAL IV SCH (09:00)
[2023-06-21 09:01] LABS: HCT 36.4 % (34.0-46.0); MCH 31.1 pg (25.0-35.0); MCHC 33.1 g/dL (31.0-37.0); MCV 94.1 fL (80.0-100.0); Platelet Count 162 k/uL (150-450); RBC 3.87 m/uL (3.80-5.40); RDW 12.3 % (11.5-15.5)
[2023-06-21 09:05] LABS: WBC 1.4 k/uL (3.8-10.6)
[2023-06-21] MEDS ORDERED: HYDROcodone/APAP 5-325MG 1 EACH TAB PO PRN (09:38)
[2023-06-21] MEDS ORDERED: FAMOTIDINE 20 MG TAB PO PRN (09:38)
[2023-06-21] MEDS ORDERED: FLUTICASONE 50MCG/SPRAY NASAL 16GM EA NOSTRIL PRN (09:38)
[2023-06-21] MEDS ORDERED: MORPHINE SULFATE 2 MG/ML SYRINGE IV PRN (09:38)
[2023-06-21] MEDS ORDERED: LORATADINE 10 MG TAB PO PRN (09:38)
[2023-06-21] MEDS ORDERED: POTASSIUM CHLORIDE ER 20 MEQ TAB.ER PO STA (09:47)
[2023-06-21] MEDS: buPROPion XL 300 MG TAB.ER.24H PO SCH (09:58)
[2023-06-21 11:06] LABS: Neutrophils % (M) 2 %
[2023-06-21 11:08] LABS: Lymphocytes # (M) 1.01 k/uL (1.0-4.8); Monocytes # (M) 0.36 k/uL (0-1.0); Nucleated Red Blood Cells 0 /100 WBC (0-0); Total Cells Counted 100
[2023-06-21 11:10] LABS: RBC Morphology Normal
[2023-06-21 11:12] LABS: Reactive Lymphocytes Present
[2023-06-21 11:14] LABS: Neutrophils # (M) 0.03 k/uL (1.3-7.7)
[2023-06-21] MEDS: LOPERAMIDE 2 MG CAP PO SCH ×2 (12:23→17:02)
--- NOTE | 2023-06-21 12:55 | P.HPIM ---
History of Present Illness H&P Date: 06/21/23 Chief Complaint: Fever, fatigue * 57-year-old patient with recent diagnosis of invasive high-grade ductal carcinoma left breast, receiving chemotherapy following up with oncology, presents to the emergency department with complains of fatigue and not feeling well * Workup initiated in ER included CBC which showed WBC 0.8 hemoglobin 12.7 platelet 143. Serum chemistry showed sodium 132 potassium 3.8 carbon dioxide 21 BUN 10 0.59 blood glucose 124 lactate 1.7. Liver profile showed a LT 40 AST 22, troponin within normal limits. Patient was noted to have fever at the time of presentation. Urinalysis is obtained showed cloudy urine rare bacteria. Patient tested negative for influenza, RSV and Covid * While in ER patient was started on fluid resuscitation given broad-spectrum antibiotic including Zosyn and vancomycin and given 1 L of normal saline bolus * Chest x-ray obtained showed interstitial changes bilaterally suspicion for atypical pneumonia * Patient had been complaining of multiple episodes of diarrhea upon presentation as well. Patient received first dose of chemotherapy 10 days ago. Patient denied any sick contacts at home * Patient admitted to medical floor with consultation from oncology as well as infectious disease. REVIEW OF SYSTEMS: Fever, fatigue, malaise, diarrhea CONSTITUTIONAL: No fever, no malaise, no fatigue. HEENT: No recent visual problems or hearing problems. Denied any sore throat. CARDIOVASCULAR: No chest pain, orthopnea, PND, no palpitations, no syncope. PULMONARY: No shortness of breath, no cough, no hemoptysis. GASTROINTESTINAL: No diarrhea, no nausea, no vomiting, no abdominal pain. NEUROLOGICAL: No headaches, no weakness, no numbness. HEMATOLOGICAL: Denies any bleeding or petechiae. GENITOURINARY: Denies any burning micturition, frequency, or urgency. MUSCULOSKELETAL/RHEUMATOLOGICAL: Denies any joint pain, swelling, or any muscle pain. ENDOCRINE: Denies any polyuria or polydipsia. PHYSICAL EXAMINATION: GENERAL: The patient is alert and oriented x3, ill appearance HEENT: Pupils are round and equally reacting to light. EOMI. CARDIOVASCULAR: S1 and S2 present. No murmurs, rubs, or gallops. PULMONARY: Chest is clear to auscultation, no wheezing or crackles. ABDOMEN: Soft, nontender, nondistended, normoactive bowel sounds. No palpable organomegaly. MUSCULOSKELETAL: No joint swelling or deformity. EXTREMITIES: No cyanosis, clubbing, or pedal edema. NEUROLOGICAL: Gross neurological examination did not reveal any focal deficits. SKIN: No rashes. Past Medical History Past Medical History: No Reported History Additional Past Medical History / Comment(s): ovarian cyst, stage 2 left breast CA- may 21 History of Any Multi-Drug Resistant Organisms: None Reported Past Surgical History: Cholecystectomy Additional Past Surgical History / Comment(s): bunionectomy, C4 neck surgery 2020 Past Anesthesia/Blood Transfusion Reactions: Postoperative Nausea & Vomiting (PONV) Additional Past Anesthesia/Blood Transfusion Reaction / Comment(s): PONV after one surgery Past Psychological History: Anxiety, Depression Smoking Status: Current every day smoker Past Alcohol Use History: None Reported Additional Past Alcohol Use History / Comment(s): smoker since 18 years old 12ppd Past Drug Use History: None Reported - Past Family History Mother Family Medical History: No Reported History Medications and Allergies Home Medications Medication Instructions Recorded Confirmed Type DULoxetine HCL [Cymbalta] 60 mg PO HS 05/07/23 06/20/23 History Dicyclomine [Bentyl] 10 mg PO QID PRN 05/07/23 06/20/23 History Famotidine [Pepcid] 40 mg PO DAILY PRN 05/07/23 06/20/23 History Loratadine [Claritin] 10 mg PO DAILY PRN 05/07/23 06/20/23 History buPROPion XL [Wellbutrin XL] 300 mg PO DAILY 05/07/23 06/20/23 History Naproxen Sodium [Aleve] 220 mg PO BID PRN 06/02/23 06/20/23 History HYDROcodone/APAP 5-325MG [[place] 1 tab PO Q6HR PRN 3 Days #10 tab 06/04/23 06/20/23 Rx 5-325] Fluticasone Nasal [place] [Flonase 1 spray EA NOSTRIL DAILY PRN 06/20/23 06/20/23 History Nasal [place]] Lidocaine-Prilocaine Cream [Emla 1 applic TOPICAL DAILY PRN 06/20/23 06/20/23 History Cream 2.5%/2.5%] Ondansetron [Zofran] 4 mg PO Q6H PRN 06/20/23 06/20/23 History Prochlorperazine [Compazine] 10 mg PO Q6H PRN 06/20/23 06/20/23 History dexAMETHasone [Decadron] 8 mg PO DIRECTED 06/20/23 06/20/23 History Allergies Allergy/AdvReac Type Severity Reaction Status Date / Time No Known Allergies Allergy Verified 06/20/23 14:15 Physical Exam Vitals: Vital Signs Temp Pulse Pulse Resp BP BP Pulse Ox 06/21/23 07:35 99.5 F 94 18 134/81 96 06/21/23 01:21 99.0 F 104 H 16 123/75 94 L 06/20/23 20:00 106 H 06/20/23 19:58 100.2 F H 106 H 16 140/79 95 06/20/23 16:03 98.6 F 87 106/66 96 06/20/23 14:00 96 16 117/60 06/20/23 13:54 99.7 F H 06/20/23 13:30 18 123/65 06/20/23 13:00 98 16 123/65 06/20/23 12:30 18 139/70 98 06/20/23 12:16 101.1 F H 100 20 120/77 99 Intake and Output 06/20/23 06/21/23 06/21/23 22:59 06:59 14:59 Other: Weight 107.955 kg Results CBC & Chem 7: 06/21/23 07:31 06/21/23 07:31 Labs: Abnormal Lab Results - Last 24 Hours (Table) 06/20/23 06/20/23 06/20/23 Range/Units 12:29 12:29 12:29 WBC 0.8 L* (3.8-10.6) k/uL Plt Count 143 L (150-450) k/uL Sodium 132 L (137-145) mmol/L Potassium (3.5-5.1) mmol/L Carbon Dioxide 21 L (22-30) mmol/L Glucose 124 H (74-99) mg/dL Calcium (8.4-10.2) mg/dL ALT 40 H (4-34) U/L Total Protein (6.3-8.2) g/dL Albumin (3.5-5.0) g/dL TSH 0.325 L (0.465-4.680) mIU/L Urine Appearance Cloudy H (Clear) Urine Bacteria Rare H (None) /hpf Urine Mucus Rare H (None) /hpf 06/21/23 06/21/23 Range/Units 07:31 07:31 WBC 1.4 L* (3.8-10.6) k/uL Plt Count (150-450) k/uL Sodium 133 L (137-145) mmol/L Potassium 3.4 L (3.5-5.1) mmol/L Carbon Dioxide 21 L (22-30) mmol/L Glucose 118 H (74-99) mg/dL Calcium 8.3 L (8.4-10.2) mg/dL ALT (4-34) U/L Total Protein 6.0 L (6.3-8.2) g/dL Albumin 3.4 L (3.5-5.0) g/dL TSH (0.465-4.680) mIU/L Urine Appearance (Clear) Urine Bacteria (None) /hpf Urine Mucus (None) /hpf Thrombosis Risk Factor Assmnt - Choose All That Apply Any of the Below Risk Factors Present?: Yes Each Factor Represents 1 point: Age 41-60 years Other Risk Factors: Yes Each Risk Factor Represents 2 Points: Malignancy Other congenital or acquired thrombophilia - If yes, enter type in comment: No Thrombosis Risk Factor Assessment Total Risk Factor Score: 3 Thrombosis Risk Factor Assessment Level: Moderate Risk Assessment and Plan Assessment: Assessment and plan Febrile leukopenia while on chemotherapy immunosuppressed Atypical pneumonia Diarrhea rule out infectious etiology History of breast cancer Hyponatremia Hypokalemia * In regards to febrile leukopenia, blood cultures obtained, continue broad- spectrum antibiotic Zosyn and vancomycin/infectious disease consulted * In regards to atypical pneumonia/chest x-ray reviewed/urine Legionella ordered/continue Zosyn and vancomycin day 2 * To C. diff ordered, will get stool cultures * In regards to history of breast cancer oncology consulted * In regards to electrolyte abnormality continue fluid resuscitation/potassium replaced/follow-up on basic metabolic panel * Lovenox for DVT prophylaxis * CODE STATUS full code Time with Patient: Greater than 30
--- NOTE | 2023-06-21 14:05 | P.CONS ---
History of Present Illness - Reason for Consult Consult date: 06/21/23 neutropenic fever Requesting physician: Jaylan Bocanegra - Chief Complaint Fever - History of Present Illness Patient is a 57 year old with a significant history of breast cancer. She is a patient of Dr. Farah. She initially presented with a palpable tender & hard m ass in upper outer quadrant of left breast in Apr 2023. Diagnostic mammogram revealed 3-4 cm 2 O'clock upper outer quadrant suspicious left breast lesion, as well as, adjucant 2cm lesion. The patient was seen by Dr Navin Alvarado, had US-Guided core biopsy on 05/13/23 revealing Grade III invasive ductal carcinoma ER/CT 12%/0% [id number] +2 by IHC, 3 O'clock smaller lesion negative. It was recommended to patient to start on neoadjuvant TCH-P followed by local surgery if good response to treatment noted, followed by XRT and endocrine therapy. She completed cycle 1 of TCH-P with neulasta on 06/12/23. Patient was seen in clinic last week and was tolerating treatment overall well, with mild symptoms of nausea, diarrhea and fatigue. Patient presented to the emergency room for fever. Patient reports she began experiencing a fever and increasing diarrhea over the last 24 hours. Tmax 101.1. Upon admission WBC was noted at 800. Hemoglobin and platelets stable. Pancultures ordered. COVID, RSV, influenza negative. UA not suspicious for UTI. Blood cultures pending. C. difficile negative. Chest x-ray revealed interstitial changes with improvement compared to x-ray from 06/04/2023. Residual changes remain. Patient was started on empiric antibiotics. WBC today improved to 1.4. Today, patient afebrile. At todays visit pt is reporting persisting watery diarrhea. Denies abdominal pain and vomiting. Review of Systems 10 point ROS is negative except as stated in the HPI Past Medical History Past Medical History: No Reported History Additional Past Medical History / Comment(s): ovarian cyst, stage 2 left breast CA- may 21-2022 History of Any Multi-Drug Resistant Organisms: None Reported Past Surgical History: Cholecystectomy Additional Past Surgical History / Comment(s): bunionectomy, C4 neck surgery 2020 Past Anesthesia/Blood Transfusion Reactions: Postoperative Nausea & Vomiting (PONV) Additional Past Anesthesia/Blood Transfusion Reaction / Comm: PONV after one surgery Past Psychological History: Anxiety, Depression Smoking Status: Current every day smoker Past Alcohol Use History: None Reported Additional Past Alcohol Use History / Comment(s): smoker since 18 years old 1/2ppd Past Drug Use History: None Reported - Past Family History Mother Family Medical History: No Reported History Medications and Allergies Home Medications Medication Instructions Recorded Confirmed Type DULoxetine HCL [Cymbalta] 60 mg PO HS 05/07/23 06/20/23 History Dicyclomine [Bentyl] 10 mg PO QID PRN 05/07/23 06/20/23 History Famotidine [Pepcid] 40 mg PO DAILY PRN 05/07/23 06/20/23 History Loratadine [Claritin] 10 mg PO DAILY PRN 05/07/23 06/20/23 History buPROPion XL [Wellbutrin XL] 300 mg PO DAILY 05/07/23 06/20/23 History Naproxen Sodium [Aleve] 220 mg PO BID PRN 06/02/23 06/20/23 History HYDROcodone/APAP 5-325MG [[place] 1 tab PO Q6HR PRN 3 Days #10 tab 06/04/23 06/20/23 Rx 5-325] Fluticasone Nasal [place] [Flonase 1 spray EA NOSTRIL DAILY PRN 06/20/23 06/20/23 History Nasal [place]] Lidocaine-Prilocaine Cream [Emla 1 applic TOPICAL DAILY PRN 06/20/23 06/20/23 History Cream 2.5%/2.5%] Ondansetron [Zofran] 4 mg PO Q6H PRN 06/20/23 06/20/23 History Prochlorperazine [Compazine] 10 mg PO Q6H PRN 06/20/23 06/20/23 History dexAMETHasone [Decadron] 8 mg PO DIRECTED 06/20/23 06/20/23 History Allergies Allergy/AdvReac Type Severity Reaction Status Date / Time No Known Allergies Allergy Verified 06/20/23 14:15 Physical Exam Vitals: Vital Signs Temp Pulse Pulse Resp BP BP Pulse Ox 06/21/23 01:21 99.0 F 104 H 16 123/75 94 L 06/20/23 20:00 106 H 06/20/23 19:58 100.2 F H 106 H 16 140/79 95 06/20/23 16:03 98.6 F 87 106/66 96 06/20/23 14:00 96 16 117/60 06/20/23 13:54 99.7 F H 06/20/23 13:30 18 123/65 06/20/23 13:00 98 16 123/65 06/20/23 12:30 18 139/70 98 06/20/23 12:16 101.1 F H 100 20 120/77 99 Intake and Output 06/20/23 06/21/23 06/21/23 22:59 06:59 14:59 Other: Weight 107.955 kg - Constitutional General appearance: no acute distress, obese - EENT Eyes: anicteric sclerae, EOMI ENT: hearing grossly normal - Respiratory Respiratory: bilateral: CTA - Cardiovascular Rhythm: regular Heart sounds: normal: S1, S2 - Gastrointestinal General gastrointestinal: no distended, soft, no tenderness - Integumentary Integumentary: no cyanotic, no jaundiced - Neurologic grossly intact - Musculoskeletal Musculoskeletal: strength equal bilaterally - Psychiatric Psychiatric: A&O x's 3, appropriate affect, intact judgment & insight Results CBC & Chem 7: 06/21/23 07:31 06/21/23 07:31 Labs: Abnormal Lab Results - Last 24 Hours (Table) 06/20/23 06/20/23 06/20/23 Range/Units 12:29 12:29 12:29 WBC 0.8 L* (3.8-10.6) k/uL Plt Count 143 L (150-450) k/uL Sodium 132 L (137-145) mmol/L Carbon Dioxide 21 L (22-30) mmol/L Glucose 124 H (74-99) mg/dL ALT 40 H (4-34) U/L TSH 0.325 L (0.465-4.680) mIU/L Urine Appearance Cloudy H (Clear) Urine Bacteria Rare H (None) /hpf Urine Mucus Rare H (None) /hpf Chest x-ray: report reviewed Assessment and Plan (1) Breast cancer, left Current Visit: Yes Status: Acute Priority: High Code(s): C50.912 - MALIGNANT NEOPLASM OF UNSPECIFIED SITE OF LEFT FEMALE BREAST SNOMED Code(s): 427800256 (2) Neutropenic fever Current Visit: Yes Status: Acute Priority: High Code(s): D70.9 - NEUTRO PENIA, UNSPECIFIED; R50.81 - FEVER PRESENTING WITH CONDITIONS CLASSIFIED ELSEWHERE SNOMED Code(s): 442840977 Plan: Neutropenic fever: -Experiencing fever and increasing diarrhea over the last 24 hours. Tmax 101.1. Upon admission WBC was noted at 800. S/p neulasta on 06/12. WBC today improved to 1.4. Patient now afebrile. Will hold granix for now -Pancultures ordered. COVID, RSV, influenza negative. UA not suspicious for UTI. Blood cultures pending. C. difficile negative. Stool culture ordered. Chest x-ray revealed interstitial changes with improvement compared to x-ray from 06/04/2023. Residual changes remain. Patient was started on empiric antibiotics. -Diarrhea persisting. Anti-diarrheals started. Will change diet to clear liquids, and will slowly advance as symptoms/counts improve -CBC daily, will continue to monitor Breast Cancer: -Full history in HPI -Completed cycle 1 of neoadjuvant TCH-P with neulasta on 06/12/23 -Next cycle scheduled for 07/03, will ensure symptoms and counts have recovered prior to proceeding with next cycle
[2023-06-21] MEDS: ACETAMINOPHEN TAB 325 MG TAB PO PRN (14:37)
[2023-06-21] MEDS: CHOLESTYRAMINE (WITH SUGAR) 4 GM PACKET PO SCH (17:02)
[2023-06-21] MEDS: DULoxetine HCL 60 MG CAPSULE.DR PO SCH (20:34)
[2023-06-22] MEDS: PIPERACILLIN-TAZOBACTAM 3.375 GM in SODIUM CHLORIDE 0.9% 100 ML IVPB SCH ×3 (04:29→20:35)
[2023-06-22] MEDS: VANCOMYCIN 2,000 MG in SODIUM CHLORIDE 0.9% 500 ML 500 ML IVPB SCH (04:30)
[2023-06-22] MEDS: LOPERAMIDE 2 MG CAP PO SCH ×5 (04:30→20:33)
[2023-06-22] MEDS: IOPAMIDOL CONTRAST (ORAL USE) VIAL PO PRN ×2 (08:01→08:59)
[2023-06-22] MEDS: ENOXAPARIN 40 MG/0.4 ML SYRINGE SQ SCH (08:01)
[2023-06-22] MEDS: buPROPion XL 300 MG TAB.ER.24H PO SCH (08:02)
[2023-06-22] MEDS: SODIUM CHLORIDE 0.9% 1,000 ML IV SCH ×3 (08:02→20:36)
[2023-06-22] MEDS: PANTOPRAZOLE 40 MG TABLET PO SCH (08:03)
--- NOTE | 2023-06-22 08:28 | P.CONS ---
History of Present Illness - Reason for Consult Consult date: 06/21/23 Febrile neutropenia Requesting physician: Karoline Samson - Chief Complaint Fever and diarrhea x one day - History of Present Illness Patient is a 57-year-old female with recent diagnosis of the left breast cancer patient did get port on 06/04/2023 and subsequently has got her first chemotherapy on 06/12/2023 patient is now presenting to the hospital for evaluation of not feeling well has been complaining of generalized weakness and a fever the day of presentation to the hospital patient denies having any headache or URI symptoms denies any chest pain shortness of breath or cough no nausea vomiting however has been complaining of significant diarrhea with mul tiple loose stools denies any blood or mucus in the stool mild lower abdominal pain no urinary symptoms no joint swelling patient mention her port has not been accessed since her chemo and denies having any pain or swelling at her port site with the symptoms the patient has been evaluated on presentation to hospital patient did have a fever of 101 F patient was tachycardic but not hypoxic hypotension or hypoxic and no need for supplemental oxygen she did have a white count of 0.8 kidney function was normal liver enzymes are normal urine has been negative stool for C. difficile negative influenza RSV and COVID testing was negative patient did have a chest x-ray interstitial changes has improved compared to 06/04/2023, patient was started on vancomycin and Zosyn infectious disease was consulted for further management of antibiotic therapy Review of Systems Positive point and negatives has been mentioned in the HPI, complete review of systems was performed and all other systems are negative Past Medical History Past Medical History: No Reported History Additional Past Medical History / Comment(s): ovarian cyst, stage 2 left breast CA- may 21-2022 History of Any Multi-Drug Resistant Organisms: None Reported Past Surgical History: Cholecystectomy Additional Past Surgical History / Comment(s): bunionectomy, C4 neck surgery 2020 Past Anesthesia/Blood Transfusion Reactions: Postoperative Nausea & Vomiting (PONV) Additional Past Anesthesia/Blood Transfusion Reaction / Comm: PONV after one surgery Past Psychological History: Anxiety, Depression Smoking Status: Current every day smoker Past Alcohol Use History: None Reported Additional Past Alcohol Use History / Comment(s): smoker since 18 years old 1/2ppd Past Drug Use History: None Reported - Past Family History Mother Family Medical History: No Reported History Medications and Allergies Home Medications Medication Instructions Recorded Confirmed Type DULoxetine HCL [Cymbalta] 60 mg PO HS 05/07/23 06/20/23 History Dicyclomine [Bentyl] 10 mg PO QID PRN 05/07/23 06/20/23 History Famotidine [Pepcid] 40 mg PO DAILY PRN 05/07/23 06/20/23 History Loratadine [Claritin] 10 mg PO DAILY PRN 05/07/23 06/20/23 History buPROPion XL [Wellbutrin XL] 300 mg PO DAILY 05/07/23 06/20/23 History Naproxen Sodium [Aleve] 220 mg PO BID PRN 06/02/23 06/20/23 History HYDROcodone/APAP 5-325MG [[place] 1 tab PO Q6HR PRN 3 Days #10 tab 06/04/23 06/20/23 Rx 5-325] Fluticasone Nasal [place] [Flonase 1 spray EA NOSTRIL DAILY PRN 06/20/23 06/20/23 History Nasal [place]] Lidocaine-Prilocaine Cream [Emla 1 applic TOPICAL DAILY PRN 06/20/23 06/20/23 History Cream 2.5%/2.5%] Ondansetron [Zofran] 4 mg PO Q6H PRN 06/20/23 06/20/23 History Prochlorperazine [Compazine] 10 mg PO Q6H PRN 06/20/23 06/20/23 History dexAMETHasone [Decadron] 8 mg PO DIRECTED 06/20/23 06/20/23 History Amoxic-Pot Clav 500-125 mg 1 tab PO Q12HR 5 Days #10 tab 06/24/23 Rx [Augmentin 500-125 mg] Cholestyramine (with Sugar) 4 gm PO BID@1000,1800 7 Days #14 06/24/23 Rx [Questran Packet] packet Loperamide [Imodium] 2 mg PO QID PRN 3 Days #12 cap 06/24/23 Rx Allergies Allergy/AdvReac Type Severity Reaction Status Date / Time No Known Allergies Allergy Verified 06/20/23 14:15 Physical Exam Vitals: Vital Signs Temp Pulse Pulse Resp BP BP Pulse Ox 06/21/23 07:35 99.5 F 94 18 134/81 96 06/21/23 01:21 99.0 F 104 H 16 123/75 94 L 06/20/23 20:00 106 H 06/20/23 19:58 100.2 F H 106 H 16 140/79 95 06/20/23 16:03 98.6 F 87 106/66 96 06/20/23 14:00 96 16 117/60 06/20/23 13:54 99.7 F H 06/20/23 13:30 18 123/65 06/20/23 13:00 98 16 123/65 06/20/23 12:30 18 139/70 98 06/20/23 12:16 101.1 F H 100 20 120/77 99 Intake and Output 06/20/23 06/21/23 06/21/23 22:59 06:59 14:59 Other: Weight 107.955 kg GENERAL DESCRIPTION: Middle-aged female lying in bed, no distress. No tachypnea or accessory muscle of respiration use. HEENT: Shows Pallor , no scleral icterus. Oral mucous membrane is dry. No pharyngeal erythema or thrush NECK: Trachea central, no thyromegaly. LUNGS: Unlabored breathing. Clear to auscultation anteriorly. No wheeze or crackle. HEART: S1, S2, regular rate and rhythm. No loud murmur ABDOMEN: Soft, mild distention and tenderness EXTREMITIES: No edema of feet. SKIN: No rash, no masses palpable. NEUROLOGICAL: The patient is awake, alert, oriented x3, mood and affect normal. Results CBC & Chem 7: 06/24/23 04:52 06/24/23 04:52 Labs: Abnormal Lab Results - Last 24 Hours (Table) 06/20/23 06/20/23 06/20/23 Range/Units 12:29 12:29 12:29 WBC 0.8 L* (3.8-10.6) k/uL Plt Count 143 L (150-450) k/uL Sodium 132 L (137-145) mmol/L Potassium (3.5-5.1) mmol/L Carbon Dioxide 21 L (22-30) mmol/L Glucose 124 H (74-99) mg/dL Calcium (8.4-10.2) mg/dL ALT 40 H (4-34) U/L Total Protein (6.3-8.2) g/dL Albumin (3.5-5.0) g/dL TSH 0.325 L (0.465-4.680) mIU/L Urine Appearance Cloudy H (Clear) Urine Bacteria Rare H (None) /hpf Urine Mucus Rare H (None) /hpf 06/21/23 06/21/23 Range/Units 07:31 07:31 WBC 1.4 L* (3.8-10.6) k/uL Plt Count (150-450) k/uL Sodium 133 L (137-145) mmol/L Potassium 3.4 L (3.5-5.1) mmol/L Carbon Dioxide 21 L (22-30) mmol/L Glucose 118 H (74-99) mg/dL Calcium 8.3 L (8.4-10.2) mg/dL ALT (4-34) U/L Total Protein 6.0 L (6.3-8.2) g/dL Albumin 3.4 L (3.5-5.0) g/dL TSH (0.465-4.680) mIU/L Urine Appearance (Clear) Urine Bacteria (None) /hpf Urine Mucus (None) /hpf Assessment and Plan (1) Diarrhea Current Visit: Yes Status: Acute Priority: High Code(s): R19.7 - DIARRHEA, UNSPECIFIED SNOMED Code(s): 83444674 (2) Neutropenic fever Current Visit: Yes Status: Acute Priority: High Code(s): D70.9 - NEUTROPENIA, UNSPECIFIED; R50.81 - FEVER PRESENTING WITH CONDITIONS CLASSIFIED ELSEWHERE SNOMED Code(s): 567247317 Plan: 1patient presented to the hospital with sepsis in this patient who did have a fever tachycardia leukopenia/neutropenia source likely abdominal in this patient who is immunocompromise because of her recent chemotherapy and evidence of neutropenia did have a predominantly GI symptoms possible GI source and need to cover for the enteric gram-negative aerobes and anaerobes 2-stool for C. difficile negative stool culture has been requested 3-we will check a CT of abdominal pelvis with contrast 4-continue with Zosyn discontinue vancomycin We will follow on clinical condition and cultures to further adjust medication if needed Thank you for this consultation we will follow the patient along with you Dictation was produced using [employer] dictation software. please excuse any grammatical, word or spelling errors. Time with Patient: Greater than 30
[2023-06-22 08:42] LABS: Basophils # (A) 0.02 X 10*3/uL (0.00-0.10); Eosinophils # (A) 0.01 X 10*3/uL (0.04-0.35); Eosinophils % (A) 0.5 %; HCT 33.5 % (37.2-46.3); HGB 10.9 g/dL (12.0-15.0); Immature Grans, Automated 0 %; Lymphocytes # (A) 0.99 X 10*3/uL (0.90-5.00); Lymphocytes % (A) 48.8 %; MCH 30.8 pg (27.0-32.0); MCHC 32.5 g/dL (32.0-37.0); MCV 94.6 FL (80.0-97.0); Mean Platelet Volume 10.2 FL (9.5-12.2); Monocytes # (A) 0.82 X 10*3/uL (0.20-1.00); Monocytes % (A) 40.4 %; NRBC Per 100 WBC 0 X 10*3/uL (0.00-0.01); Neutrophils # (A) 0.19 X 10*3/uL (1.80-7.70); Neutrophils % (A) 9.3 %; Platelet Count 163 X 10*3/uL (140-440); RBC 3.54 X 10*6/uL (4.10-5.20); RDW 12.5 % (11.5-14.5); WBC 2.03 X 10*3/uL (4.50-10.00)
[2023-06-22] MEDS: CHOLESTYRAMINE (WITH SUGAR) 4 GM PACKET PO SCH ×2 (08:59→17:31)
[2023-06-22 09:02] LABS: Blood Urea Nitrogen 4.2 mg/dL (9.0-27.0); Calcium 8.4 mg/dL (8.7-10.3); Carbon Dioxide 21.2 mmol/L (21.6-31.8); Chloride 105 mmol/L (96-109); Glucose 106 mg/dL (70-110); Potassium 3.4 mmol/L (3.5-5.5); Sodium 136 mmol/L (135-145)
[2023-06-22] MEDS ORDERED: Potassium Replacement Protocol 1 EACH MISC MISCELLANE PRN (09:16)
--- NOTE | 2023-06-22 10:32 | CT ---
EXAMINATION TYPE: CT abdomen pelvis w con CT DLP: 1941.5 mGycm, Automated exposure control for dose reduction was used. DATE OF EXAM: 06/22/2023 10:26 AM COMPARISON: CT abdomen pelvis most recent from 05/29/2023 CLINICAL INDICATION:Female, 57 years old with history of fever,tender; Fever. Abdominal tenderness. P t has Left side breast CA. TECHNIQUE: Axial CT of the ;CT abdomen pelvis w con;Sagittal and coronal reformats were created on a separate workstation. Contrast used:180 mL of Isovue 300 with IV Contrast, (none if empty) Oral contrast used: with Oral Contrast (none if empty) FINDINGS: LOWER CHEST: Unremarkable ABDOMEN LIVER: Diffusely hypoattenuating parenchyma. Hypoattenuating probable right hepatic lobe cyst. GALLBLADDER AND BILE DUCTS: The gallbladder is surgically absent. PANCREAS: Unremarkable. SPLEEN: Unremarkable. ADRENAL GLANDS: Unremarkable. KIDNEYS AND URETERS: No evidence of hydronephrosis or renal calculus. The ureters are unremarkable. Hypoattenuating nonenhancing left renal cyst. PELVIS BLADDER: Unremarkable REPRODUCTIVE: Unremarkable. ABDOMEN & PELVIS STOMACH AND BOWEL: No evidence of bowel obstruction. There is moderate fluid throughout the colon. PERITONEUM/RETROPERITONEUM: No evidence of pneumoperitoneum or free fluid. VASCULATURE: No evidence of aortic aneurysm. MUSCULOSKELETAL: No acute osseous abnormalities LYMPH NODES: No gross evidence for lymphadenopathy. SOFT TISSUE/ABDOMINAL WALL: Fat-containing umbilical hernia. IMPRESSION: 1. Watery stool throughout the colon correlate for diarrhea. Otherwise, no definitive evidence for a cute abdominal process. 2. Hepatic steatosis.
[2023-06-22] MEDS: POTASSIUM CHLORIDE ER 20 MEQ TAB.ER PO SCH ×2 (10:33→12:25)
--- NOTE | 2023-06-22 12:59 | P.PN ---
Subjective Progress Note Date: 06/22/23 * 57-year-old patient with recent diagnosis of invasive high-grade ductal carcinoma left breast, receiving chemotherapy following up with oncology, presents to the emergency department with complains of fatigue and not feeling well * Workup initiated in ER included CBC which showed WBC 0.8 hemoglobin 12.7 p latelet 143. Serum chemistry showed sodium 132 potassium 3.8 carbon dioxide 21 BUN 10 0.59 blood glucose 124 lactate 1.7. Liver profile showed a LT 40 AST 22, troponin within normal limits. Patient was noted to have fever at the time of presentation. Urinalysis is obtained showed cloudy urine rare bacteria. Patient tested negative for influenza, RSV and Covid * While in ER patient was started on fluid resuscitation given broad-spectrum antibiotic including Zosyn and vancomycin and given 1 L of normal saline bolus * Chest x-ray obtained showed interstitial changes bilaterally suspicion for a typical pneumonia * Patient had been complaining of multiple episodes of diarrhea upon presentation as well. Patient received first dose of chemotherapy 10 days ago. Patient denied any sick contacts at home * Patient admitted to medical floor with consultation from oncology as well as infectious disease. * 06/22/23: Patient seen and evaluated bedside, appreciate input from oncology and infectious disease, CT abdomen pelvis completed watery stool noted throughout: No evidence of acute process, hepatic stenosis noted. Diet advanced to regular diet, continue patient on Lomotil. CBC showed WBC of 2.03, neutrophils 0.19 eosinophils 0.01. Vancomycin discontinued continue IV Zosyn REVIEW OF SYSTEMS: Fever, fatigue, malaise, diarrhea improved CONSTITUTIONAL: No fever, no malaise, no fatigue. HEENT: No recent visual problems or hearing problems. Denied any sore throat. CARDIOVASCULAR: No chest pain, orthopnea, PND, no palpitations, no syncope. PULMONARY: No shortness of breath, no cough, no hemoptysis. GASTROINTESTINAL: No diarrhea, no nausea, no vomiting, no abdominal pain. NEUROLOGICAL: No headaches, no weakness, no numbness. HEMATOLOGICAL: Denies any bleeding or petechiae. GENITOURINARY: Denies any burning micturition, frequency, or urgency. MUSCULOSKELETAL/RHEUMATOLOGICAL: Denies any joint pain, swelling, or any muscle pain. ENDOCRINE: Denies any polyuria or polydipsia. PHYSICAL EXAMINATION: See vitals below GENERAL: The patient is alert and oriented x3, ill appearance HEENT: Pupils are round and equally reacting to light. EOMI. CARDIOVASCULAR: S1 and S2 present. No murmurs, rubs, or gallops. PULMONARY: Chest is clear to auscultation, no wheezing or crackles. ABDOMEN: Soft, nontender, distended, hypoactive bowel sounds MUSCULOSKELETAL: No joint swelling or deformity. EXTREMITIES: No cyanosis, clubbing, or pedal edema. NEUROLOGICAL: Gross neurological examination did not reveal any focal deficits. SKIN: No rashes. Objective - Vital Signs Vital signs: Vital Signs Temp 98.2 F 06/22/23 07:39 Pulse 82 06/22/23 07:39 Resp 17 06/22/23 07:39 BP 112/73 06/22/23 07:39 Pulse Ox 95 06/22/23 07:39 FiO2 Intake & Output 06/21/23 06/22/23 06/22/23 18:59 06:59 18:59 Intake Total 222 Balance 222 Intake: Oral 222 Other: Voiding Method Toilet # Voids 1 - Labs CBC & Chem 7: 06/22/23 05:57 06/22/23 05:57 Labs: Abnormal Lab Results - Last 24 Hours (Table) 06/22/23 06/22/23 Range/Units 05:57 05:57 WBC 2.03 L (4.50-10.00) X 10*3/uL RBC 3.54 L (4.10-5.20) X 10*6/uL Hgb 10.9 L (12.0-15.0) g/dL Hct 33.5 L (37.2-46.3) % Neutrophils # 0.19 A* (1.80-7.70) X 10*3/uL Eosinophils # 0.01 L (0.04-0.35) X 10*3/uL Potassium 3.4 L (3.5-5.5) mmol/L Carbon Dioxide 21.2 L (21.6-31.8) mmol/L BUN 4.2 L (9.0-27.0) mg/dL BUN/Creatinine Ratio 7.00 L (12.00-20.00) Ratio Calcium 8.4 L (8.7-10.3) mg/dL C-Reactive Protein 21.60 H (0.00-0.80) mg/dL Microbiology - Last 24 Hours (Table) 06/20/23 12:29 Blood Culture - Preliminary Blood 06/20/23 12:33 Blood Culture - Preliminary Blood Assessment and Plan Assessment: Assessment and plan Febrile neutropenia while on chemotherapy immunosuppressed Atypical pneumonia Diarrhea rule out infectious etiology History of breast cancer Hyponatremia Hypokalemia * In regards to febrile leukopenia, blood cultures obtained no growth, continue broad-spectrum antibiotic Zosyn/infectious disease consulted, to mycin discontinued * In regards to atypical pneumonia/chest x-ray reviewed/urine Legionella ordered/continue Zosyn Day 2 * Stool C. diff negative, we'll cultures ordered * In regards to history of breast cancer oncology consulted * In regards to electrolyte abnormality continue fluid resuscitation/potassium replaced/follow-up on basic metabolic panel * Lovenox for DVT prophylaxis * CODE STATUS full code Time with Patient: Greater than 30
[2023-06-22] MEDS: ACETAMINOPHEN TAB 325 MG TAB PO PRN (15:59)
[2023-06-22] MEDS: SALT AND SODA MOUTHWASH 1,000 ML PO SCH ×2 (17:25→22:15)
[2023-06-22] MEDS: ONDANSETRON 4 MG/2 ML VIAL IVP PRN (17:33)
--- NOTE | 2023-06-22 19:24 | P.PN ---
Subjective Progress Note Date: 06/22/23 Principal diagnosis: Neutropenic fever, on treatment for breast cancer In f/u today pt reports still having watery stool, her abd is still sore, Tmax 100.4. No N,V, cough or dysuria. Objective - Vital Signs Vital signs: Vital Signs Temp 99.3 F 06/22/23 13:55 Pulse 91 06/22/23 13:55 Resp 17 06/22/23 13:55 BP 121/77 06/22/23 13:55 Pulse Ox 96 06/22/23 13:55 FiO2 Intake & Output 06/21/23 06/22/23 06/22/23 18:59 06:59 18:59 Intake Total 222 Balance 222 Intake: Oral 222 Other: Voiding Method Toilet # Voids 1 - Constitutional General appearance: Present: cooperative, no acute distress, obese - EENT Eyes: Present: anicteric sclerae, EOMI ENT: Present: hearing grossly normal, pharyngeal erythema - Respiratory Respiratory: bilateral: CTA - Cardiovascular Rhythm: regular Heart sounds: normal: S1, S2 Abnormal Heart Sounds: Absent: systolic murmur, diastolic murmur, rub, S3 Gallop, S4 Gallop, click, other - Peripheral edema leg Peripheral Edema: bilateral: None - Gastrointestinal General gastrointestinal: Present: decreased bowel sounds, soft, tenderness. Absent: absent bowel sounds, distended, hepatomegaly, hyperactive bowel sounds, normal bowel sounds, organomegaly, rigid, scaphoid, splenomegaly, umbilical hernia, ventral hernia Localized gastrointestinal: tender: RLQ - Integumentary Integumentary: Present: normal - Neurologic Neurologic: Present: CNII-XII intact - Musculoskeletal Musculoskeletal: Present: strength equal bilaterally - Psychiatric Psychiatric: Present: A&O x's 3, appropriate affect, intact judgment & insight - Labs CBC & Chem 7: 06/22/23 05:57 06/22/23 05:57 Labs: Abnormal Lab Results - Last 24 Hours (Table) 06/22/23 06/22/23 Range/Units 05:57 05:57 WBC 2.03 L (4.50-10.00) X 10*3/uL RBC 3.54 L (4.10-5.20) X 10*6/uL Hgb 10.9 L (12.0-15.0) g/dL Hct 33.5 L (37.2-46.3) % Neutrophils # 0.19 A* (1.80-7.70) X 10*3/uL Eosinophils # 0.01 L (0.04-0.35) X 10*3/uL Potassium 3.4 L (3.5-5.5) mmol/L Carbon Dioxide 21.2 L (21.6-31.8) mmol/L BUN 4.2 L (9.0-27.0) mg/dL BUN/Creatinine Ratio 7.00 L (12.00-20.00) Ratio Calcium 8.4 L (8.7-10.3) mg/dL C-Reactive Protein 21.60 H (0.00-0.80) mg/dL Microbiology - Last 24 Hours (Table) 06/20/23 12:29 Blood Culture - Preliminary Blood 06/20/23 12:33 Blood Culture - Preliminary Blood - Imaging and Cardiology CT scan - abdomen: report reviewed CT scan - pelvis: report reviewed Assessment and Plan (1) Neutropenic fever Current Visit: Yes Status: Acute Priority: High Code(s): D70.9 - NEUTROPENIA, UNSPECIFIED; R50.81 - FEVER PRESENTING WITH CONDITIONS CLASSIFIED ELSEWHERE SNOMED Code(s): 754672741 (2) Diarrhea Current Visit: Yes Status: Acute Priority: High Code(s): R19.7 - DIARRHEA, UNSPECIFIED SNOMED Code(s): 93846427 (3) Breast cancer, left Current Visit: Yes Status: Acute Priority: High Code(s): C50.912 - MALIGNANT NEOPLASM OF UNSPECIFIED SITE OF LEFT FEMALE BREAST SNOMED Code(s): 971173822 Plan: Neutropenic fever -2/2 chemo. GCSF given 06/13, 9 days ago. Effects are usually noted day 7-10, tomorrow will be day 10. ANC 190 today. No additional GCSF until after 10 days from initial injection and if there is no ANC recovery being noted, which there is some as of today. -Tmax 100.4 last night -Cultures so far neg, c-diff neg. -ID has seen pt, abx ordered Diarrhea -c-diff neg -questran and lomotil ordered -right and lower abd tenderness, no rebound. Clear diet reordered. Do not advance diet without speaking to Medical Oncologist -CT AP positive for fluid in the colon, likely caused by inflammation from neutropenia Breast cancer -Neoadjuvant treatment, s/p 1st cycle -Pt is receiving neoadjuvant treatment and relative dose intensity is very important for anticipated response but, may have to consider a dose adjustment. That will be decided by patient and Primary Medical Oncologist Salt and soda added for oral care as mucus membranes are red
[2023-06-22] MEDS: DULoxetine HCL 60 MG CAPSULE.DR PO SCH (20:33)
[2023-06-22] MEDS: DICYCLOMINE 10 MG CAP PO PRN (20:35)
[2023-06-23] MEDS: SALT AND SODA MOUTHWASH 1,000 ML PO SCH ×5 (01:41→20:29)
[2023-06-23] MEDS: SODIUM CHLORIDE 0.9% 1,000 ML IV SCH ×3 (03:17→20:28)
[2023-06-23] MEDS: PIPERACILLIN-TAZOBACTAM 3.375 GM in SODIUM CHLORIDE 0.9% 100 ML IVPB SCH ×3 (05:22→20:28)
[2023-06-23] MEDS: ENOXAPARIN 40 MG/0.4 ML SYRINGE SQ SCH (08:20)
[2023-06-23] MEDS: PANTOPRAZOLE 40 MG TABLET PO SCH (08:21)
[2023-06-23] MEDS: buPROPion XL 300 MG TAB.ER.24H PO SCH (08:21)
[2023-06-23] MEDS: DICYCLOMINE 10 MG CAP PO PRN ×2 (08:21→20:28)
[2023-06-23] MEDS: LOPERAMIDE 2 MG CAP PO SCH ×4 (08:21→22:20)
[2023-06-23] MEDS: CHOLESTYRAMINE (WITH SUGAR) 4 GM PACKET PO SCH ×2 (08:22→17:18)
[2023-06-23 09:35] LABS: BUN/Creat Ratio <5.83 Ratio (12.00-20.00); Blood Urea Nitrogen <3.5 mg/dL (9.0-27.0); Calcium 8.1 mg/dL (8.7-10.3); Carbon Dioxide 23.2 mmol/L (21.6-31.8); Chloride 106 mmol/L (96-109); Glucose 114 mg/dL (70-110); Potassium 3.5 mmol/L (3.5-5.5); Sodium 138 mmol/L (135-145)
[2023-06-23 10:19] LABS: HCT 32.7 % (37.2-46.3); HGB 10.7 g/dL (12.0-15.0); MCH 30.3 pg (27.0-32.0); MCHC 32.7 g/dL (32.0-37.0); MCV 92.6 FL (80.0-97.0); NRBC Per 100 WBC 0 X 10*3/uL (0.00-0.01); Platelet Count 221 X 10*3/uL (140-440); RBC 3.53 X 10*6/uL (4.10-5.20); RDW 12.9 % (11.5-14.5); WBC 3.71 X 10*3/uL (4.50-10.00)
[2023-06-23] MEDS: POTASSIUM CHLORIDE ER 20 MEQ TAB.ER PO SCH (11:17)
--- NOTE | 2023-06-23 12:49 | P.PN ---
Subjective Progress Note Date: 06/23/23 * 57-year-old patient with recent diagnosis of invasive high-grade ductal carcinoma left breast, receiving chemotherapy following up with oncology, presents to the emergency department with complains of fatigue and not feeling well * Workup initiated in ER included CBC which showed WBC 0.8 hemoglobin 12.7 p latelet 143. Serum chemistry showed sodium 132 potassium 3.8 carbon dioxide 21 BUN 10 0.59 blood glucose 124 lactate 1.7. Liver profile showed a LT 40 AST 22, troponin within normal limits. Patient was noted to have fever at the time of presentation. Urinalysis is obtained showed cloudy urine rare bacteria. Patient tested negative for influenza, RSV and Covid * While in ER patient was started on fluid resuscitation given broad-spectrum antibiotic including Zosyn and vancomycin and given 1 L of normal saline bolus * Chest x-ray obtained showed interstitial changes bilaterally suspicion for a typical pneumonia * Patient had been complaining of multiple episodes of diarrhea upon presentation as well. Patient received first dose of chemotherapy 10 days ago. Patient denied any sick contacts at home * Patient admitted to medical floor with consultation from oncology as well as infectious disease. * 06/22/23: Patient seen and evaluated bedside, appreciate input from oncology and infectious disease, CT abdomen pelvis completed watery stool noted throughout: No evidence of acute process, hepatic stenosis noted. Diet advanced to regular diet, continue patient on Lomotil. CBC showed WBC of 2.03, neutrophils 0.19 eosinophils 0.01. Vancomycin discontinued continue IV Zosyn * 06/23/2023: Patient seen and evaluated bedside, abdominal pain has improved, did not have diarrhea WBC count improving, neutrophil count not reported. Continue IV Zosyn, diet to be advanced as tolerated however oncology wants to continue patient on liquid diet for now , do not suspect patient has typhlitis REVIEW OF SYSTEMS: Fever, fatigue, malaise, diarrhea improved CONSTITUTIONAL: No fever, no malaise, no fatigue. HEENT: No recent visual problems or hearing problems. Denied any sore throat. CARDIOVASCULAR: No chest pain, orthopnea, PND, no palpitations, no syncope. PULMONARY: No shortness of breath, no cough, no hemoptysis. GASTROINTESTINAL: No diarrhea, no nausea, no vomiting, no abdominal pain. NEUROLOGICAL: No headaches, no weakness, no numbness. HEMATOLOGICAL: Denies any bleeding or petechiae. GENITOURINARY: Denies any burning micturition, frequency, or urgency. MUSCULOSKELETAL/RHEUMATOLOGICAL: Denies any joint pain, swelling, or any muscle pain. ENDOCRINE: Denies any polyuria or polydipsia. PHYSICAL EXAMINATION: See vitals below GENERAL: The patient is alert and oriented x3, ill appearance HEENT: Pupils are round and equally reacting to light. EOMI. CARDIOVASCULAR: S1 and S2 present. No murmurs, rubs, or gallops. PULMONARY: Chest is clear to auscultation, no wheezing or crackles. ABDOMEN: Soft, nontender, distended, regular bowel sounds, no guarding no rigidity no tenderness MUSCULOSKELETAL: No joint swelling or deformity. EXTREMITIES: No cyanosis, clubbing, or pedal edema. NEUROLOGICAL: Gross neurological examination did not reveal any focal deficits. SKIN: No rashes. Objective - Vital Signs Vital signs: Vital Signs Temp 98.7 F 06/23/23 12:17 Pulse 85 06/23/23 12:17 Resp 18 06/23/23 12:17 BP 111/68 06/23/23 12:17 Pulse Ox 96 06/23/23 12:17 FiO2 Intake & Output 06/22/23 06/23/23 06/23/23 18:59 06:59 18:59 Intake Total 700 480 Balance 700 480 Intake: Oral 700 480 Other: Voiding Method Toilet Toilet Toilet # Voids 2 1 - Labs CBC & Chem 7: 06/23/23 05:48 06/23/23 05:48 Labs: Abnormal Lab Results - Last 24 Hours (Table) 06/23/23 06/23/23 Range/Units 05:48 05:48 WBC 3.71 L (4.50-10.00) X 10*3/uL RBC 3.53 L (4.10-5.20) X 10*6/uL Hgb 10.7 L (12.0-15.0) g/dL Hct 32.7 L (37.2-46.3) % BUN <3.5 L (9.0-27.0) mg/dL BUN/Creatinine Ratio <5.83 L (12.00-20.00) Ratio Glucose 114 H (70-110) mg/dL Calcium 8.1 L (8.7-10.3) mg/dL Microbiology - Last 24 Hours (Table) 06/20/23 12:29 Blood Culture - Preliminary Blood 06/20/23 12:33 Blood Culture - Preliminary Blood Assessment and Plan Assessment: Assessment and plan Febrile neutropenia while on chemotherapy immunosuppressed Atypical pneumonia Diarrhea rule out infectious etiology History of breast cancer Hyponatremia Hypokalemia * In regards to febrile leukopenia, blood cultures obtained no growth, continue broad-spectrum antibiotic Zosyn/infectious disease consulted, Vancomcyin discontinued. * In regards to atypical pneumonia/chest x-ray reviewed/urine Legionella ordered/continue Zosyn Day 3 * In regards to diarrhea Stool C. diff negative, continue Colace Tagamet, Bentyl * In regards to history of breast cancer oncology consulted * In regards to electrolyte abnormality continue fluid resuscitation/potassium replaced/follow-up on basic metabolic panel * Lovenox for DVT prophylaxis * CODE STATUS full code
--- NOTE | 2023-06-23 14:56 | P.PN ---
Subjective Progress Note Date: 06/22/23 Principal diagnosis: Reason for follow-up is febrile neutropenia and diarrhea Patient is a 57-year-old female with recent diagnosis of the left breast cancer patient did get port on 06/04/2023 and subsequently has got her first chemotherapy on 06/12/2023 patient is now presenting to the hospital for evaluation of not feeling well, patient was noticed to be febrile and did have a low white count concerning for febrile neutropenia. On today's evaluation that is 06/22/2023, patient overall fever pattern has improved patient is breathing comfortably on room air denies any chest pain shortness of breath or cough no nausea no vomiting and abdominal pain and diarrhea has slowed down. Patient did have white count of 2.03, creatinine 0.6, CT abdominal pelvis watery stool throughout the colon no evidence for acute abdominal process Objective - Vital Signs Vital signs: Vital Signs Temp 98.2 F 06/22/23 07:39 Pulse 82 06/22/23 07:39 Resp 17 06/22/23 07:39 BP 112/73 06/22/23 07:39 Pulse Ox 95 06/22/23 07:39 FiO2 Intake & Output 06/21/23 06/22/23 06/22/23 18:59 06:59 18:59 Intake Total 222 Balance 222 Intake: Oral 222 Other: Voiding Method Toilet # Voids 1 - Exam GENERAL DESCRIPTION: Middle-aged female lying in bed in no distress RESPIRATORY SYSTEM: Unlabored breathing , clear to auscultation anteriorly HEART: S1 S2 regular rate and rhythm , ABDOMEN: Soft , no tenderness EXTREMITIES: No edema feet - Labs CBC & Chem 7: 06/23/23 05:48 06/23/23 05:48 Labs: Abnormal Lab Results - Last 24 Hours (Table) 06/21/23 06/22/23 06/22/23 Range/Units 07:31 05:57 05:57 WBC 2.03 L (4.50-10.00) X 10*3/uL RBC 3.54 L (4.10-5.20) X 10*6/uL Hgb 10.9 L (12.0-15.0) g/dL Hct 33.5 L (37.2-46.3) % Neutrophils # 0.19 A* (1.80-7.70) X 10*3/uL Neutrophils # (Manual) 0.03 L* (1.3-7.7) k/uL Eosinophils # 0.01 L (0.04-0.35) X 10*3/uL Potassium 3.4 L (3.5-5.5) mmol/L Carbon Dioxide 21.2 L (21.6-31.8) mmol/L BUN 4.2 L (9.0-27.0) mg/dL BUN/Creatinine Ratio 7.00 L (12.00-20.00) Ratio Calcium 8.4 L (8.7-10.3) mg/dL C-Reactive Protein 21.60 H (0.00-0.80) mg/dL Microbiology - Last 24 Hours (Table) 06/20/23 12:29 Blood Culture - Preliminary Blood 06/20/23 12:33 Blood Culture - Preliminary Blood Assessment and Plan (1) Diarrhea Current Visit: Yes Status: Acute Priority: High Code(s): R19.7 - DIARRHEA, UNSPECIFIED SNOMED Code(s): 38236559 (2) Neutropenic fever Current Visit: Yes Status: Acute Priority: High Code(s): D70.9 - NEUTROPENIA, UNSPECIFIED; R50.81 - FEVER PRESENTING WITH CONDITIONS CLASSIFIED ELSEWHERE SNOMED Code(s): 072482237 Plan: 1patient presented to the hospital with sepsis in this patient who did have a fever tachycardia leukopenia/neutropenia source likely abdominal in this patient who is immunocompromise because of her recent chemotherapy and evidence of neutropenia did have a predominantly GI symptoms possible GI source and need to cover for the enteric gram-negative aerobes and anaerobes 2-stool for C. difficile negative stool culture are currently pending 3-patient did have CT of abdominal pelvis with contrast, that was negative for any acute intra-abdominal processes did shows evidence of liquidy stools in the colon 4-patient to continue with Zosyn while waiting for the cultures to finalize Dictation was produced using [employer] dictation software. please excuse any grammatical, word or spelling errors. Time with Patient: Less than 30
--- NOTE | 2023-06-23 14:58 | P.PN ---
Subjective Progress Note Date: 06/23/23 Principal diagnosis: Reason for follow-up is febrile neutropenia and diarrhea Patient is a 57-year-old female with recent diagnosis of the left breast cancer patient did get port on 06/04/2023 and subsequently has got her first chemotherapy on 06/12/2023 patient is now presenting to the hospital for evaluation of not feeling well, patient was noticed to be febrile and did have a low white count concerning for febrile neutropenia. On today's evaluation that is 06/23/2023, the patient continues to be afebrile, the patient is breathing comfortably on room air without the need for supplemental oxygen, the patient denies shortness of breath chest pain and no significant cough , patient denies nausea/vomiting, no abdominal pain and diarrhea has slowed down/resolved with the nursing staff Patient did have white count is up to 3.71, creatinine 0.6, CT abdominal pelvis watery stool throughout the colon no evidence for acute abdominal process Objective - Vital Signs Vital signs: Vital Signs Temp 98.7 F 06/23/23 12:17 Pulse 85 06/23/23 12:17 Resp 18 06/23/23 12:17 BP 111/68 06/23/23 12:17 Pulse Ox 96 06/23/23 12:17 FiO2 Intake & Output 06/22/23 06/23/23 06/23/23 18:59 06:59 18:59 Intake Total 700 480 Balance 700 480 Intake: Oral 700 480 Other: Voiding Method Toilet Toilet Toilet # Voids 2 1 - Exam GENERAL DESCRIPTION: Middle-aged female lying in bed in no distress RESPIRATORY SYSTEM: Unlabored breathing , clear to auscultation anteriorly HEART: S1 S2 regular rate and rhythm , ABDOMEN: Soft , no tenderness EXTREMITIES: No edema feet - Labs CBC & Chem 7: 06/23/23 05:48 06/23/23 05:48 Labs: Abnormal Lab Results - Last 24 Hours (Table) 06/23/23 06/23/23 Range/Units 05:48 05:48 WBC 3.71 L (4.50-10.00) X 10*3/uL RBC 3.53 L (4.10-5.20) X 10*6/uL Hgb 10.7 L (12.0-15.0) g/dL Hct 32.7 L (37.2-46.3) % BUN <3.5 L (9.0-27.0) mg/dL BUN/Creatinine Ratio <5.83 L (12.00-20.00) Ratio Glucose 114 H (70-110) mg/dL Calcium 8.1 L (8.7-10.3) mg/dL Microbiology - Last 24 Hours (Table) 06/20/23 12:29 Blood Culture - Preliminary Blood 06/20/23 12:33 Blood Culture - Preliminary Blood Assessment and Plan (1) Diarrhea Current Visit: Yes Status: Acute Priority: High Code(s): R19.7 - DIARRHEA, UNSPECIFIED SNOMED Code(s): 95513551 (2) Neutropenic fever Current Visit: Yes Status: Acute Priority: High Code(s): D70.9 - NEUTROPENIA, UNSPECIFIED; R50.81 - FEVER PRESENTING WITH CONDITIONS CLASSIFIED ELSEWHERE SNOMED Code(s): 667237127 Plan: 1patient presented to the hospital with sepsis in this patient who did have a fever tachycardia leukopenia/neutropenia source likely abdominal in this patient who is immunocompromise because of her recent chemotherapy and evidence of neutropenia did have a predominantly GI symptoms possible GI source and need to cover for the enteric gram-negative aerobes and anaerobes 2-stool for C. difficile negative stool culture are currently pending 3-patient did have CT of abdominal pelvis with contrast, that was negative for any acute intra-abdominal processes did shows evidence of liquidy stools in the colon 4-patient did have some clinical improvement and will continue with Zosyn while waiting for the cultures to finalize Dictation was produced using [employer] dictation software. please excuse any grammatical, word or spelling errors. Time with Patient: Less than 30
--- NOTE | 2023-06-23 18:11 | CDI ---
Documentation Clarification Form Date: 06/23/2023 05:49:27 PM From: Jeanette Bruno RN, CCDS Admit Date: 06/20/2023 01:40:00 PM Patient Name: Ibeth Menchaca Visit Number: [id number] Discharge Date: ATTENTION: The Clinical Documentation Specialists (CDI) and [facility] Coding Staff appreciate your assistance in clarifying documentation. Please respond to the clarification below the line at the bottom and electronically sign. The CDI & [facility] Coding staff will review the response and follow-up if needed. Please note: Queries are made part of the Legal Health Record. If you have any questions, please contact the author of this message via ITS. Dr. Karoline Samson The patient has sepsis documented in the ID Consult on 06/21/23 and subsequent progress notes. Based on this information and the findings below, is there an additional diagnosis that is clinically appropriate for this patient? History/Risk Factors: eft breast CA- May 21 Clinical Indicators: 57-year-old female with diagnosis of the left breast cancer on chemotherapy presents with complaints of generalized weakness and a fever the day of presentation. She also complaining of significant diarrhea with multiple loose stools. She has negative stool for C. difficile negative influenza RSV and COVID testing was negative. 06/20 CXR: Interstitial changes have improved compared to 06/04/2023. Consider bronchitis/asthma or improving atypical/COVID Pneumonia. 06/20 WBC 0.8 Neutrophils 0.03 06/20 Lactic acid: 1.7 06/22 C-Reactive protein 21.60 06/20 Blood cultures: Pending, No growth after 48 hours 06/20 Vital signs: 120/77 101.1 100 20 99% RA 06/21 ID Consult: patient presented to the hospital with sepsis in this patient who did have a fever tachycardia leukopenia/neutropenia source likely abdominal in this patient who is immunocompromise because of her recent chemotherapy and evidence of neutropenia did have a predominantly GI symptoms possible GI source and need to cover for the enteric gram-negative aerobes and anaerobes. 06/23 ID: CT abdominal pelvis watery stool throughout the colon no evidence for acute abdominal process Treatment: [employer]/Telemetry Vancomycin 2,000 MG IVPB Once 06/20 PTD-06/22 .9NS 1,000MLIV Bolus 06/20 then @130 ML/HR Zosyn 3.375 GM IVPB Q8 HRS 06/20-06/23 Is there an additional diagnosis that is clinically appropriate for this patient? [ y ] Sepsis, present on admission [ ] Sepsis ruled out [ ] Other, please specify [ ] Unable to determine SIRS Criteria: 2 or more of the following may indicate SIRS Temperature < 96.8F (36C) or > 101.0F (38.3C) Heart Rate > 90 bpm Respiratory Rate > 20 breaths/min or PaCO2 < 32 mmHg White Blood Cell Count > 12,000 or < 4,000 cells/mm3 or > 10% bands (Template Last Reviewed: August 2022) MTDD
[2023-06-23] MEDS: DULoxetine HCL 60 MG CAPSULE.DR PO SCH (20:28)
--- NOTE | 2023-06-23 23:37 | P.PN ---
Subjective Progress Note Date: 06/23/23 Principal diagnosis: Neutropenic fever, on treatment for breast cancer In f/u today pt reports no diarrhea stool, since yesterday, abd is only mildly tender, no fever, N,V, cough or dysuria. Objective - Vital Signs Vital signs: Vital Signs Temp 98.7 F 06/23/23 07:27 Pulse 91 06/23/23 07:27 Resp 20 06/23/23 07:27 BP 117/69 06/23/23 07:27 Pulse Ox 94 L 06/23/23 07:27 FiO2 Intake & Output 06/22/23 06/23/23 06/23/23 18:59 06:59 18:59 Intake Total 700 480 Balance 700 480 Intake: Oral 700 480 Other: Voiding Method Toilet Toilet Toilet # Voids 2 1 - Constitutional General appearance: Present: cooperative, no acute distress, obese - EENT Eyes: Present: anicteric sclerae, EOMI ENT: Present: hearing grossly normal, normal oropharynx - Respiratory Details: resp even and unlabored - Cardiovascular Details: skin warm and dry to touch - Peripheral edema leg Peripheral Edema: bilateral: None - Gastrointestinal General gastrointestinal: Present: normal bowel sounds, soft. Absent: absent bowel sounds, decreased bowel sounds, distended, hepatomegaly, hyperactive bowel sounds, organomegaly, rigid, scaphoid, splenomegaly, tenderness, umbilical hernia, ventral hernia - Integumentary Integumentary: Present: normal - Neurologic Neurologic: Present: CNII-XII intact - Musculoskeletal Musculoskeletal: Present: strength equal bilaterally - Psychiatric Psychiatric: Present: A&O x's 3, appropriate affect, intact judgment & insight - Labs CBC & Chem 7: 06/23/23 05:48 06/23/23 05:48 Labs: Abnormal Lab Results - Last 24 Hours (Table) 06/23/23 06/23/23 Range/Units 05:48 05:48 WBC 3.71 L (4.50-10.00) X 10*3/uL RBC 3.53 L (4.10-5.20) X 10*6/uL Hgb 10.7 L (12.0-15.0) g/dL Hct 32.7 L (37.2-46.3) % BUN <3.5 L (9.0-27.0) mg/dL BUN/Creatinine Ratio <5.83 L (12.00-20.00) Ratio Glucose 114 H (70-110) mg/dL Calcium 8.1 L (8.7-10.3) mg/dL Microbiology - Last 24 Hours (Table) 06/20/23 12:29 Blood Culture - Preliminary Blood 06/20/23 12:33 Blood Culture - Preliminary Blood Assessment and Plan (1) Neutropenic fever Current Visit: Yes Status: Acute Priority: High Code(s): D70.9 - NEUTROPENIA, UNSPECIFIED; R50.81 - FEVER PRESENTING WITH CONDITIONS CLASSIFIED ELSEWHERE SNOMED Code(s): 941879309 (2) Diarrhea Current Visit: Yes Status: Acute Priority: High Code(s): R19.7 - DIARRHEA, UNSPECIFIED SNOMED Code(s): 52085496 (3) Breast cancer, left Current Visit: Yes Status: Acute Priority: High Code(s): C50.912 - MALIGNANT NEOPLASM OF UNSPECIFIED SITE OF LEFT FEMALE BREAST SNOMED Code(s): 889010241 Plan: Neutropenic fever -2/2 chemo. GCSF given 06/13, actually 10 days ago. Effects are usually noted day 7-10, today is day 11 and her WBC is 3.7, ANC was not done No additional GCSF needed as there is adequate ANC recovery, pending CBC with diff in the AM. -No temp since 06/21 -Blood Cultures perla 48 hours, c-diff neg, stool culture neg. -ID has seen pt, abx ordered Diarrhea -c-diff neg -questran and lomotil ordered -No right and lower abd tenderness today. Discussed case briefly with Attending. Cont clear diet until ANC reported. If >1000 ok to advance diet to full liquids -CT AP was positive for fluid in the colon, likely caused by inflammation from neutropenia. Breast cancer -Neoadjuvant treatment, s/p 1st cycle -Pt is receiving neoadjuvant treatment and relative dose intensity is very important for anticipated response but, may have to consider a dose adjustment. That will be decided by patient and Primary Medical Oncologist Salt and soda added for oral care. Mucus membranes less red today. Likely improved because of improved WBC/ANC Attests: I have seen and examined pt, performed H&P, developed impression and plan of care. Discussed with dictator. Agree with documentation, dictated as a scribe.
[2023-06-24] MEDS: SALT AND SODA MOUTHWASH 1,000 ML PO SCH ×3 (01:16→11:23)
[2023-06-24] MEDS: SODIUM CHLORIDE 0.9% 1,000 ML IV SCH ×2 (03:10→11:23)
[2023-06-24 04:23] VITALS: RESP 16
[2023-06-24 05:20] LABS: Basophils % (A) 0 %; Eosinophils % (A) 0 %; HGB 10.5 gm/dL (11.4-16.0); Lymphocytes # (A) 1.4 k/uL (1.0-4.8); Lymphocytes % (A) 37 %; MCH 31.1 pg (25.0-35.0); MCHC 32.8 g/dL (31.0-37.0); MCV 94.7 fL (80.0-100.0); Mean Platelet Volume 7.3; Monocytes # (A) 0.3 k/uL (0-1.0); Monocytes % (A) 9 %; Neutrophils # (A) 1.9 k/uL (1.3-7.7); Neutrophils % (A) 51 %; Platelet Count 238 k/uL (150-450); RBC 3.38 m/uL (3.80-5.40); RDW 12.7 % (11.5-15.5); WBC 3.8 k/uL (3.8-10.6)
[2023-06-24] MEDS: PIPERACILLIN-TAZOBACTAM 3.375 GM in SODIUM CHLORIDE 0.9% 100 ML IVPB SCH ×2 (05:29→11:23)
[2023-06-24 07:58] VITALS: BP 122/78; PULSE 86; TEMP 98.7
[2023-06-24] MEDS: CHOLESTYRAMINE (WITH SUGAR) 4 GM PACKET PO SCH (08:04)
[2023-06-24] MEDS: ENOXAPARIN 40 MG/0.4 ML SYRINGE SQ SCH (08:04)
[2023-06-24] MEDS: PANTOPRAZOLE 40 MG TABLET PO SCH (08:04)
[2023-06-24] MEDS: LOPERAMIDE 2 MG CAP PO SCH ×2 (08:04→13:02)
[2023-06-24] MEDS: buPROPion XL 300 MG TAB.ER.24H PO SCH (08:04)
[2023-06-24] MEDS: POTASSIUM CHLORIDE ER 20 MEQ TAB.ER PO SCH ×2 (09:34→11:22)
--- NOTE | 2023-06-24 12:20 | P.DS ---
Providers Date of admission: 06/20/23 13:40 Expected date of discharge: 06/24/23 Attending physician: Sharon Garcia Consults: 06/20/23 13:40 Consult Physician Routine Consulting Provider: Дмитрий Farah Consult Reason/Comments: known Do you want consulting provider notified?: Yes 06/21/23 09:39 Consult Physician Routine Consulting Provider: Andie Jones Consult Reason/Comments: Febrile neutropenia Do you want consulting provider notified?: Yes Primary care physician: Farzaneh [facility] Course: * 57-year-old patient with recent diagnosis of invasive high-grade ductal carcinoma left breast, receiving chemotherapy following up with oncology, presents to the emergency department with complains of fatigue and not feeling well * Workup initiated in ER included CBC which showed WBC 0.8 hemoglobin 12.7 platelet 143. Serum chemistry showed sodium 132 potassium 3.8 carbon dioxide 21 BUN 10 0.59 blood glucose 124 lactate 1.7. Liver profile showed a LT 40 AST 22, troponin within normal limits. Patient was noted to have fever at the time of presentation. Urinalysis is obtained showed cloudy urine rare bacteria. Patient tested negative for influenza, RSV and Covid * While in ER patient was started on fluid resuscitation given broad-spectrum antibiotic including Zosyn and vancomycin and given 1 L of normal saline bolus * Chest x-ray obtained showed interstitial changes bilaterally suspicion for atypical pneumonia * Patient had been complaining of multiple episodes of diarrhea upon presentation as well. Patient received first dose of chemotherapy 10 days ago. Patient denied any sick contacts at home * Patient admitted to medical floor with consultation from oncology as well as infectious disease. * 06/22/23: Patient seen and evaluated bedside, appreciate input from oncology and infectious disease, CT abdomen pelvis completed watery stool noted throughout: No evidence of acute process, hepatic stenosis noted. Diet advanced to regular diet, continue patient on Lomotil. CBC showed WBC of 2.03, neutrophils 0.19 eosinophils 0.01. Vancomycin discontinued continue IV Zosyn * 06/23/2023: Patient seen and evaluated bedside, abdominal pain has improved, did not have diarrhea WBC count improving, neutrophil count not reported. Continue IV Zosyn, diet to be advanced as tolerated however oncology wants to continue patient on liquid diet for now , do not suspect patient has typhlitis * 06/24/23: Patient seen and evaluated bedside, abdominal pain resolved, able to tolerate diet, diet advanced. Neutrophil count within normal limits, K plan discussed with infectious disease recommended discharge on Augmentin for 5 days REVIEW OF SYSTEMS: Fever, fatigue, malaise, diarrhea improved CONSTITUTIONAL: No fever, no malaise, no fatigue. HEENT: No recent visual problems or hearing problems. Denied any sore throat. CARDIOVASCULAR: No chest pain, orthopnea, PND, no palpitations, no syncope. PULMONARY: No shortness of breath, no cough, no hemoptysis. GASTROINTESTINAL: No diarrhea, no nausea, no vomiting, no abdominal pain. NEUROLOGICAL: No headaches, no weakness, no numbness. HEMATOLOGICAL: Denies any bleeding or petechiae. GENITOURINARY: Denies any burning micturition, frequency, or urgency. MUSCULOSKELETAL/RHEUMATOLOGICAL: Denies any joint pain, swelling, or any muscle pain. ENDOCRINE: Denies any polyuria or polydipsia. PHYSICAL EXAMINATION: GENERAL: The patient is alert and oriented x3, well-appearing HEENT: Pupils are round and equally reacting to light. EOMI. CARDIOVASCULAR: S1 and S2 present. No murmurs, rubs, or gallops. PULMONARY: Chest is clear to auscultation, no wheezing or crackles. ABDOMEN: Soft, nontender, no guarding no rigidity MUSCULOSKELETAL: No joint swelling or deformity. EXTREMITIES: No cyanosis, clubbing, or pedal edema. NEUROLOGICAL: Gross neurological examination did not reveal any focal deficits. SKIN: No rashes. Assessment: Assessment and plan Febrile neutropenia while on chemotherapy immunosuppressed RESOLVED Atypical pneumonia Diarrhea ruled out infectious etiology improved History of breast cancer Hyponatremia resolved Hypokalemia resolved * In regards to febrile leukopenia, blood cultures obtained no growth, broad- spectrum antibiotic Zosyn/infectious disease consulted, Vancomcyin discontinued. Started on Augmentin for 5 days * In regards to atypical pneumonia/chest x-ray reviewed/urine Legionella ordered/continue Zosyn Day 4, discharge on Augmentin for 5 days * In regards to diarrhea Stool C. diff negative, continue Lomotil, cholestyramine * In regards to history of breast cancer oncology consulted * In regards to electrolyte abnormality continue fluid resuscitation/potassium replaced * Patient able to tolerate diet, discharged home Patient Condition at Discharge: Stable Plan - Discharge Summary Discharge Rx Participant: No New Discharge Prescriptions: New Amoxic-Pot Clav 500-125 mg [Augmentin 500-125 mg] 1 tab PO Q12HR 5 Days #10 tab Loperamide [Imodium] 2 mg PO QID PRN 3 Days #12 cap PRN Reason: Diarrhea Cholestyramine (with Sugar) [Questran Packet] 4 gm PO BID@1000,1800 7 Days #14 packet Continue buPROPion XL [Wellbutrin XL] 300 mg PO DAILY Loratadine [Claritin] 10 mg PO DAILY PRN PRN Reason: allergies Famotidine [Pepcid] 40 mg PO DAILY PRN PRN Reason: reflux DULoxetine HCL [Cymbalta] 60 mg PO HS Fluticasone Nasal [place] [Flonase Nasal [place]] 1 spray EA NOSTRIL DAILY PRN PRN Reason: Allergy Symptoms Lidocaine-Prilocaine Cream [Emla Cream 2.5%/2.5%] 1 applic TOPICAL DAILY PRN PRN Reason: port access Prochlorperazine [Compazine] 10 mg PO Q6H PRN PRN Reason: Nausea Dicyclomine [Bentyl] 10 mg PO QID PRN PRN Reason: Abdominal Distention Naproxen Sodium [Aleve] 220 mg PO BID PRN PRN Reason: Pain HYDROcodone/APAP 5-325MG [Langston 5-325] 1 tab PO Q6HR PRN 3 Days #10 tab PRN Reason: Analgesia Ondansetron [Zofran] 4 mg PO Q6H PRN PRN Reason: Nausea dexAMETHasone [Decadron] 8 mg PO DIRECTED Discharge Medication List DULoxetine HCL [Cymbalta] 60 mg PO HS 05/07/23 [History] Dicyclomine [Bentyl] 10 mg PO QID PRN 05/07/23 [History] Famotidine [Pepcid] 40 mg PO DAILY PRN 05/07/23 [History] Loratadine [Claritin] 10 mg PO DAILY PRN 05/07/23 [History] buPROPion XL [Wellbutrin XL] 300 mg PO DAILY 05/07/23 [History] Naproxen Sodium [Aleve] 220 mg PO BID PRN 06/02/23 [History] HYDROcodone/APAP 5-325MG [Langston 5-325] 1 tab PO Q6HR PRN 3 Days #10 tab 06/04/23 [Rx] Fluticasone Nasal [place] [Flonase Nasal [place]] 1 spray EA NOSTRIL DAILY PRN 06/20/23 [History] Lidocaine-Prilocaine Cream [Emla Cream 2.5%/2.5%] 1 applic TOPICAL DAILY PRN 06/20/23 [History] Ondansetron [Zofran] 4 mg PO Q6H PRN 06/20/23 [History] Prochlorperazine [Compazine] 10 mg PO Q6H PRN 06/20/23 [History] dexAMETHasone [Decadron] 8 mg PO DIRECTED 06/20/23 [History] Amoxic-Pot Clav 500-125 mg [Augmentin 500-125 mg] 1 tab PO Q12HR 5 Days #10 tab 06/24/23 [Rx] Cholestyramine (with Sugar) [Questran Packet] 4 gm PO BID@1000,1800 7 Days #14 packet 06/24/23 [Rx] Loperamide [Imodium] 2 mg PO QID PRN 3 Days #12 cap 06/24/23 [Rx] Follow up Appointment(s)/Referral(s): Farzaneh Rich DO [Primary Care Provider] - 1-2 days Discharge Disposition: HOME SELF-CARE
--- NOTE | 2023-06-24 12:39 | P.PN ---
Subjective Progress Note Date: 06/24/23 Principal diagnosis: Reason for follow-up is febrile neutropenia and diarrhea Patient is a 57-year-old female with recent diagnosis of the left breast cancer patient did get port on 06/04/2023 and subsequently has got her first chemotherapy on 06/12/2023 patient is now presenting to the hospital for evaluation of not feeling well, patient was noticed to be febrile and did have a low white count concerning for febrile neutropenia. On today's evaluation that is 06/24/2023, the patient remains to be afebrile, the patient is breathing comfortably on room air and the patient denies any shortness of breath, the patient denies chest pain or any cough , patient denies abdominal pain, no nausea/vomiting and no diarrhea Patient did have white count normalized to 3.8, creatinine 0.6, CT abdominal pelvis watery stool throughout the colon no evidence for acute abdominal process, cultures has been negative so far Objective - Vital Signs Vital signs: Vital Signs Temp 98.7 F 06/24/23 07:36 Pulse 86 06/24/23 07:36 Resp 16 06/24/23 07:36 BP 122/78 06/24/23 07:36 Pulse Ox 94 L 06/24/23 07:36 FiO2 Intake & Output 06/23/23 06/24/23 06/24/23 18:59 06:59 18:59 Intake Total 240 Balance 240 Intake: Oral 240 Other: Voiding Method Toilet Toilet Toilet # Voids 1 3 - Exam GENERAL DESCRIPTION: Middle-aged female lying in bed in no distress RESPIRATORY SYSTEM: Unlabored breathing , clear to auscultation anteriorly HEART: S1 S2 regular rate and rhythm , ABDOMEN: Soft , no tenderness EXTREMITIES: No edema feet - Labs CBC & Chem 7: 06/24/23 04:52 06/24/23 04:52 Labs: Abnormal Lab Results - Last 24 Hours (Table) 06/23/23 06/24/23 06/24/23 Range/Units 05:48 04:52 04:52 WBC 3.71 L (4.50-10.00) X 10*3/uL RBC 3.53 L 3.38 L (4.10-5.20) X 10*6/uL Hgb 10.7 L 10.5 L (12.0-15.0) g/dL Hct 32.7 L 32.0 L (37.2-46.3) % Potassium 3.4 L (3.5-5.1) mmol/L Microbiology - Last 24 Hours (Table) 06/20/23 12:29 Blood Culture - Preliminary Blood 06/20/23 12:33 Blood Culture - Preliminary Blood 06/21/23 10:01 Stool Culture - Preliminary Stool Assessment and Plan (1) Diarrhea Current Visit: Yes Status: Acute Priority: High Code(s): R19.7 - DIARRHEA, UNSPECIFIED SNOMED Code(s): 32369661 (2) Neutropenic fever Current Visit: Yes Status: Acute Priority: High Code(s): D70.9 - NEUTROPENIA, UNSPECIFIED; R50.81 - FEVER PRESENTING WITH CONDITIONS CLASSIFIED ELSEWHERE SNOMED Code(s): 728122042 Plan: 1patient presented to the hospital with sepsis in this patient who did have a fever tachycardia leukopenia/neutropenia source likely abdominal in this patient who is immunocompromise because of her recent chemotherapy and evidence of neutropenia did have a predominantly GI symptoms possible GI source and need to cover for the enteric gram-negative aerobes and anaerobes 2-stool for C. difficile negative stool culture are currently pending 3-patient did have CT of abdominal pelvis with contrast, that was negative for any acute intra-abdominal processes did shows evidence of liquidy stools in the colon 4-patient did have some clinical improvement with resolution of the fever and white count has normalized, we will consider short course of oral Augmentin on discharge and this was discussed with the admitting team working on discharge Dictation was produced using [employer] dictation software. please excuse any grammatical, word or spelling errors.
--- NOTE | 2023-06-24 18:45 | P.PN ---
Subjective Progress Note Date: 06/24/23 Principal diagnosis: Neutropenic fever, on treatment for breast cancer In f/u today pt reports no diarrhea stool, no abd tenderness, fever, N,V, cough or dysuria. She is ambulatory and tolerating oral intake Objective - Vital Signs Vital signs: Vital Signs Temp 98.7 F 06/24/23 07:36 Pulse 86 06/24/23 07:36 Resp 16 06/24/23 07:36 BP 122/78 06/24/23 07:36 Pulse Ox 94 L 06/24/23 07:36 FiO2 Intake & Output 06/23/23 06/24/23 06/24/23 18:59 06:59 18:59 Intake Total 240 Balance 240 Intake: Oral 240 Other: Voiding Method Toilet Toilet Toilet # Voids 1 3 - Constitutional General appearance: Present: cooperative, no acute distress, obese - EENT Eyes: Present: anicteric sclerae, EOMI ENT: Present: hearing grossly normal - Respiratory Respiratory: bilateral: CTA - Cardiovascular Rhythm: regular Heart sounds: normal: S1, S2 Abnormal Heart Sounds: Absent: systolic murmur, diastolic murmur, rub, S3 Gall op, S4 Gallop, click, other - Peripheral edema leg Peripheral Edema: bilateral: None - Gastrointestinal General gastrointestinal: Present: normal bowel sounds, soft. Absent: absent bowel sounds, decreased bowel sounds, distended, hepatomegaly, hyperactive bowel sounds, organomegaly, rigid, scaphoid, splenomegaly, tenderness, umbilical hernia, ventral hernia - Integumentary Integumentary: Present: normal - Neurologic Neurologic: Present: CNII-XII intact - Musculoskeletal Musculoskeletal: Present: strength equal bilaterally - Psychiatric Psychiatric: Present: A&O x's 3, appropriate affect, intact judgment & insight - Labs CBC & Chem 7: 06/24/23 04:52 06/24/23 04:52 Labs: Abnormal Lab Results - Last 24 Hours (Table) 06/24/23 06/24/23 Range/Units 04:52 04:52 RBC 3.38 L (3.80-5.40) m/uL Hgb 10.5 L (11.4-16.0) gm/dL Hct 32.0 L (34.0-46.0) % Potassium 3.4 L (3.5-5.1) mmol/L Microbiology - Last 24 Hours (Table) 06/20/23 12:29 Blood Culture - Preliminary Blood 06/20/23 12:33 Blood Culture - Preliminary Blood 06/21/23 10:01 Stool Culture - Preliminary Stool Assessment and Plan (1) Neutropenic fever Status: Acute Priority: High Code(s): D70.9 - NEUTROPENIA, UNSPECIFIED; R50.81 - FEVER PRESENTING WITH CONDITIONS CLASSIFIED ELSEWHERE SNOMED Code(s): 755657252 (2) Diarrhea Status: Acute Priority: High Code(s): R19.7 - DIARRHEA, UNSPECIFIED SNOMED Code(s): 17111592 (3) Breast cancer, left Status: Acute Priority: High Code(s): C50.912 - MALIGNANT NEOPLASM OF UNSPECIFIED SITE OF LEFT FEMALE BREAST SNOMED Code(s): 496355286 Plan: Neutropenic fever -2/2 chemo. GCSF given 06/13, Effects are usually noted day 7-10, today is day 12 and her WBC is 3.8, ANC 1.9 No additional GCSF needed as there is adequate ANC recovery, though it was delayed -No temp since 06/21 -Blood Cultures neg 72 hours, c-diff neg, stool culture neg. -ID following Diarrhea -c-diff neg -questran and lomotil ordered -No right and lower abd tenderness today, stool consistency improved, ANC recovered. Discussed case briefly with Attending. Ok to advance to full liquid. If tolerated, encouraged to advance diet slowly Breast cancer -Neoadjuvant treatment, s/p 1st cycle -Pt is receiving neoadjuvant treatment and relative dose intensity is very important for anticipated response but, may have to consider a dose adjustment. That will be decided by patient and Primary Medical Oncologist. Message sent to [facility] and Med Onc Mucus membrane irritation resolved. Attests: I have seen and examined pt, performed H&P, developed impression and plan of care. Discussed with dictator. Agree with documentation, dictated as a scribe.
== END 2023-06-24 15:07 | disposition home or self-care (01) | DRG 871 ==
LOC: EC 11:55 → 5NMEDONC 13:40
PROVIDERS: ADMIT Hospitalist; ATTEND Hospitalist
DX: A41.9 Sepsis, unspecified organism (principal); J18.9 Pneumonia, unspecified organism; D84.821 Immunodeficiency due to drugs; E87.1 Hypo-osmolality and hyponatremia; Z20.822 Contact with and (suspected) exposure to COVID-19; E87.6 Hypokalemia; F17.210 Nicotine dependence, cigarettes, uncomplicated; C50.912 Malignant neoplasm of unspecified site of left female breast; D70.9 Neutropenia, unspecified; T45.1X5A Adverse effect of antineoplastic and immunosuppressive drugs, initial encounter; Z85.3 Personal history of malignant neoplasm of breast; F32.A Depression, unspecified; F41.9 Anxiety disorder, unspecified; R50.81 Fever presenting with conditions classified elsewhere; X58.XXXA Exposure to other specified factors, initial encounter; Z79.899 Other long term (current) drug therapy; R19.7 Diarrhea, unspecified; Z90.49 Acquired absence of other specified parts of digestive tract
CPT/HCPCS: 36415; 71046; 74177; 80048; 80053; 81001; 83605; 83735; 83880; 84100; 84132; 84443; 84484; 85025; 85027; 85610; 85730; 86140; 87040; 87045; 87046; 87324; 87449; 87636; 93005; 94760; 96361; 96365; 96375; 99291

== ENCOUNTER → 2023-08-31 | Outpatient (CLI) | payer BC, OTHER ==
--- NOTE | 2023-09-01 10:23 | CA ---
Transthoracic Echo Report Name: Ibeth Menchaca Age: 57 Gender: F : 1965 Exam Date: 08/31/2023 16:44 Exam Location: [facility] Ht (in): 66 Wt (lb): 225 Ordering Physician: Дмитрий Farah MD Attending/Referring Phys: [employer] Off Bearer Latricia Rose [facility] Procedure CPT: Indications: Z01.818 Pre-chemo Cardiac Hx: Technical Quality: Fair Contrast 1: Total Dose (mL): Contrast 2: Total Dose (mL): MEASUREMENTS (Male / Female) Normal Values 2D ECHO LV Diastolic Diameter PLAX 4.4 cm 4.2 - 5.9 / 3.9 - 5.3 cm LV Systolic Diameter PLAX 3.3 cm IVS Diastolic Thickness 1.0 cm 0.6 - 1.0 / 0.6 - 0.9 cm LVPW Diastolic Thickness 1.0 cm 0.6 - 1.0 / 0.6 - 0.9 cm LV Relative Wall Thickness 0.5 LVOT Diameter 2.0 cm LV Diastolic Volume MOD BP 47.3 cm??? 67 - 155 / 56 - 104 cm??? LV Systolic Volume MOD BP 23.1 cm??? 22 - 58 / 19 - 49 cm??? LV Ejection Fraction MOD BP 51.2 % >= 55 % LV Cardiac Index MOD BP 979.5 cm???/min???m??? LV Diastolic Volume MOD 4C 58.3 cm??? LV Systolic Volume MOD 4C 29.0 cm??? LV Ejection Fraction MOD 4C 50.3 % LV Cardiac Index MOD 4C 1187.1 cm???/min???m??? LV Diastolic Length 4C 7.1 cm LV Systolic Length 4C 5.7 cm LV Diastolic Volume MOD 2C 38.8 cm??? LV Systolic Volume MOD 2C 18.4 cm??? LV Ejection Fraction MOD 2C 52.4 % LV Cardiac Index MOD 2C 822.3 cm???/min???m??? LV Diastolic Length 2C 7.1 cm LV Systolic Length 2C 5.8 cm LA Volume 31.9 cm??? 18 - 58 / 22 - 52 cm??? LA Volume Index 14.3 cm???/m??? 16 - 28 cm???/m??? Ascending Aorta Diameter 2.8 cm M-MODE Aortic Root Diameter MM 2.4 cm LA Systolic Diameter MM 3.1 cm LA Ao Ratio MM 1.3 AV Cusp Separation MM 1.9 cm DOPPLER AV Peak Velocity 146.4 cm/s AV Peak Gradient 8.6 mmHg AV Mean Velocity 105.4 cm/s AV Mean Gradient 4.9 mmHg AV Velocity Time Integral 28.2 cm LVOT Peak Velocity 126.6 cm/s LVOT Peak Gradient 6.4 mmHg LVOT Velocity Time Integral 22.2 cm LVOT Stroke Volume 73.1 cm??? LVOT Stroke Volume Index 34.7 ml/m??? LVOT Cardiac Index 2957.2 cm???/min???m??? AV Area Cont Eq vti 2.6 cm??? AV Area Cont Eq pk 2.8 cm??? MV Area PHT 4.0 cm??? Mitral E Point Velocity 59.1 cm/s Mitral A Point Velocity 80.9 cm/s Mitral E to A Ratio 0.7 MV Deceleration Time 190.0 ms LV E' Lateral Velocity 11.7 cm/s Mitral E to LV E' Lateral Ratio 5.1 LV E' Septal Velocity 6.9 cm/s Mitral E to LV E' Septal Ratio 8.5 Right Atrial Pressure 3.0 mmHg FINDINGS Left Ventricle Mildly increased left ventricular wall thickness. Left ventricular cavity size normal. Low normal left ventricular systolic function with no obvious regional wall motion abnormalities. Left ventricular ejection fraction is estimated at 55-60%. Average global longitudinal strain estimated at -14.2%. On visual assessment this is an underestimation. Right Ventricle Normal right ventricular size. Right Atrium Normal right atrial size. Left Atrium Normal left atrial size. Mitral Valve Structurally normal mitral valve. Trace mitral regurgitation. Aortic Valve Trileaflet aortic valve. No aortic regurgitation. Tricuspid Valve Structurally normal tricuspid valve. No tricuspid regurgitation. Pulmonic Valve Pulmonic valve not well visualized. Pericardium No pericardial effusion. Aorta Normal size aortic root and proximal ascending aorta. CONCLUSIONS Left ventricular ejection fraction is estimated at 55-60%. No obvious regional wall motion abnormalities. No significant chamber size abnormality No significant valvular dysfunction No pericardial effusion Previewed by: Dr Edmar Gonzalez (Electronically Signed) Final Date: 01 September 2023 10:23
== END | disposition home or self-care (01) ==
LOC: RADECHMAIN 16:44
PROVIDERS: ATTEND Internal Medicine Hematology & Oncology
DX: Z01.818 Encounter for other preprocedural examination (principal); D70.9 Neutropenia, unspecified; C50.412 Malignant neoplasm of upper-outer quadrant of left female breast; B96.81 Helicobacter pylori [H. pylori] as the cause of diseases classified elsewhere; K58.9 Irritable bowel syndrome, unspecified; Z71.3 Dietary counseling and surveillance
CPT/HCPCS: 93306

== ENCOUNTER 2023-09-07 14:10 | Inpatient (IN) | payer BC, OTHER ==
--- NOTE | 2023-09-07 14:16 | ED ---
General Adult HPI - General Source: patient, RN notes reviewed Mode of arrival: wheelchair Limitations: no limitations <Yanet Michael - Last Filed: 09/07/23 14:16> <Dex Veloz - Last Filed: 09/07/23 18:53> - General Chief complaint: Recheck/Abnormal Lab/Rx Stated complaint: Pain all over Time Seen by Provider: 09/07/23 14:15 - History of Present Illness Initial comments: This is a 57-year-old female who presents to the emergency department for diffuse body pain. Patient is undergoing chemotherapy for breast cancer. States that she is now having pain all over her body, she is increasingly weak, and unable to eat. Currently follows with Dr. Farah. (Yanet Michael) 57-year-old female presents emergency department complaint of dehydration, body pain. Patient states that she received chemotherapy on . Patient states she is under chemotherapy for breast cancer per oncologist is Dr. Farah. Patient states she is feeling increasing weak, unable to eat or drink at this time. She states she feels dehydrated. She states when she started chemo she had similar reactions. (Dex Veloz) - Related Data Home Medications Medication Instructions Recorded Confirmed DULoxetine HCL [Cymbalta] 60 mg PO HS 05/07/23 06/20/23 Dicyclomine [Bentyl] 10 mg PO QID PRN 05/07/23 06/20/23 Famotidine [Pepcid] 40 mg PO DAILY PRN 05/07/23 06/20/23 Loratadine [Claritin] 10 mg PO DAILY PRN 05/07/23 06/20/23 buPROPion XL [Wellbutrin XL] 300 mg PO DAILY 05/07/23 06/20/23 Naproxen Sodium [Aleve] 220 mg PO BID PRN 06/02/23 06/20/23 Fluticasone Nasal [place] [Flonase 1 spray EA NOSTRIL DAILY PRN 06/20/23 06/20/23 Nasal [place]] Lidocaine-Prilocaine Cream [Emla 1 applic TOPICAL DAILY PRN 06/20/23 06/20/23 Cream 2.5%/2.5%] Ondansetron [Zofran] 4 mg PO Q6H PRN 06/20/23 06/20/23 Prochlorperazine [Compazine] 10 mg PO Q6H PRN 06/20/23 06/20/23 dexAMETHasone [Decadron] 8 mg PO DIRECTED 06/20/23 06/20/23 Previous Rx's Medication Instructions Recorded HYDROcodone/APAP 5-325MG [[place] 1 tab PO Q6HR PRN 3 Days #10 tab 06/04/23 5-325] Amoxic-Pot Clav 500-125 mg 1 tab PO Q12HR 5 Days #10 tab 06/24/23 [Augmentin 500-125 mg] Cholestyramine (with Sugar) 4 gm PO BID@1000,1800 7 Days #14 06/24/23 [Questran Packet] packet Loperamide [Imodium] 2 mg PO QID PRN 3 Days #12 cap 06/24/23 Allergies Allergy/AdvReac Type Severity Reaction Status Date / Time No Known Allergies Allergy Verified 09/07/23 14:32 Review of Systems ROS Other: All systems not noted in ROS Statement are negative. <Yanet Michael - Last Filed: 09/07/23 14:16> ROS Other: All systems not noted in ROS Statement are negative. <Dex Veloz - Last Filed: 09/07/23 18:53> ROS Statement: Those systems with pertinent positive or pertinent negative responses have been documented in the HPI. Past Medical History Past Medical History: No Reported History Additional Past Medical History / Comment(s): ovarian cyst, stage 2 breast cx- may 21-2022 History of Any Multi-Drug Resistant Organisms: None Reported Past Surgical History: Cholecystectomy Additional Past Surgical History / Comment(s): bunionectomy, C4 neck surgery 2020 Past Anesthesia/Blood Transfusion Reactions: Postoperative Nausea & Vomiting (PONV) Additional Past Anesthesia/Blood Transfusion Reaction / Comment(s): PONV after one surgery Past Psychological History: Anxiety, Depression Smoking Status: Current every day smoker Past Alcohol Use History: None Reported Past Drug Use History: None Reported - Past Family History Mother Family Medical History: No Reported History <Yanet Michael - Last Filed: 09/07/23 14:16> General Exam <Yanet Michael - Last Filed: 09/07/23 14:16> Limitations: no limitations General appearance: alert, in no apparent distress Head exam: Present: atraumatic, normocephalic, normal inspection Eye exam: Present: normal appearance, PERRL, EOMI. Absent: scleral icterus, conjunctival injection, periorbital swelling ENT exam: Present: normal exam, normal oropharynx, mucous membranes moist Neck exam: Present: normal inspection, full ROM. Absent: tenderness, meningismus, lymphadenopathy Respiratory exam: Present: normal lung sounds bilaterally. Absent: respiratory distress, wheezes, rales, rhonchi, stridor Cardiovascular Exam: Present: regular rate, normal rhythm, normal heart sounds. Absent: systolic murmur, diastolic murmur, rubs, gallop, clicks GI/Abdominal exam: Present: soft, normal bowel sounds. Absent: distended, tenderness, guarding, rebound, rigid <Dex Veloz - Last Filed: 09/07/23 18:53> - General Exam Comments Initial Comments: Visual Physical Exam Vital signs reviewed General: Well-appearing, nontoxic, no acute distress. Head: Normocephalic, atraumatic Eyes: PERRLA, EOMI ENT: Airway patent Chest: Nonlabored breathing Skin: No visual rash, normal skin tone Neuro: Alert and oriented 3 Musculoskeletal: No gross abnormalities (Yanet Michael) Course Vital Signs 09/07/23 09/07/23 09/07/23 14:29 16:00 18:00 Temperature 99.2 F Pulse Rate 102 H 91 97 Respiratory 20 18 Rate Blood Pressure 97/61 139/83 139/83 O2 Sat by Pulse 99 97 Oximetry Medical Decision Making <Yanet Michael - Last Filed: 09/07/23 14:16> - Lab Data Result diagrams: 09/07/23 15:58 09/07/23 15:58 <Dex Veloz - Last Filed: 09/07/23 18:53> - Medical Decision Making I performed the QuickNote portion of this chart. Signed Yanet Michael PA-C. (Yanet Michael) Was pt. sent in by a medical professional or institution (DON Schrader, DIRECT SUPPORT WORKER, urgent care, hospital, or custodial...) When possible be specific @ -No Did you speak to anyone other than the patient for history (EMS, parent, family, police, friend...)? What history was obtained from this source @ -No Did you review nursing and triage notes (agree or disagree)? Why? @ -I reviewed and agree with nursing and triage notes Were old charts reviewed (outside hosp., previous admission, EMS record, old EKG, old radiological studies, urgent care reports/EKG's, custodial records)? Report findings @ -No old charts were reviewed Differential Diagnosis (chest pain, altered mental status, abdominal pain women, abdominal pain men, vaginal bleeding, weakness, fever, dyspnea, syncope, headache, dizziness, GI bleed, back pain, seizure, CVA, palpatations, mental health, musculoskeletal)? @ -[Breast cancer, chemotherapy adverse reaction, dehydration, viral infection, EKG interpreted by me (3pts min.). @ -None X-rays interpreted by me (1pt min.). @ -[None done CT interpreted by me (1pt min.). @ -None done U/S interpreted by me (1pt. min.). @ -None done What testing was considered but not performed or refused? (CT, X-rays, U/S, labs)? Why? @ -None What meds were considered but not given or refused? Why? @ -None Did you discuss the management of the patient with other professionals (pro fessionals i.e. , PA, DIRECT SUPPORT WORKER, lab, RT, psych nurse, vp digital marketing social media and crm, type mapper, teacher, custom protection officer, disease case manager rn)? Give summary @ -[EMH for admission Was smoking cessation discussed for >3mins.? @ -No Was critical care preformed (if so, how long)? @ -No Were there social determinants of health that impacted care today? How? (Homelessness, low income, unemployed, alcoholism, drug addiction, transpor tation, low edu. Level, literacy, decrease access to med. care, mcc, rehab)? @ -No Was there de-escalation of care discussed even if they declined (Discuss DNR or withdrawal of care, Hospice)? DNR status @ -No What co-morbidities impacted this encounter? (DM, HTN, Smoking, COPD, CAD, Cancer, CVA, ARF, Chemo, Hep., AIDS, mental health diagnosis, sleep apnea, morbid obesity)? @ -Breast cancer e Was patient admitted / discharged? Hospital course, mention meds given and route, prescriptions, significant lab abnormalities, going to OR and other pertinent info. @ -[The patient is having recurrence of pain, dehydration will be admitted for symptomatic control related to adverse reaction to chemotherapy Undiagnosed new problem with uncertain prognosis? @ -No Drug Therapy requiring intensive monitoring for toxicity (Heparin, Nitro, Insulin, Cardizem)? @ -No Were any procedures done? @ -No Diagnosis/symptom? @ -Adverse reaction to chemotherapy, dehydration, pain Acute, or Chronic, or Acute on Chronic? @ -[Acute Uncomplicated (without systemic symptoms) or Complicated (systemic symptoms)? @ -Complicated Side effects of treatment? @ -[No Exacerbation, Progression, or Severe Exacerbation? @ -No Poses a threat to life or bodily function? How? (Chest pain, USA, OR, pneumonia, PE, COPD, DKA, ARF, appy, cholecystitis, CVA, Diverticulitis, Homicidal, Suicidal, threat to staff... and all critical care pts) @ -No (Dex Veloz) - Lab Data Lab Results 09/07/23 09/07/23 09/07/23 Range/Units 15:58 15:58 15:58 WBC 10.1 (3.8-10.6) k/uL RBC 3.54 L (3.80-5.40) m/uL Hgb 11.7 (11.4-16.0) gm/dL Hct 34.1 (34.0-46.0) % MCV 96.3 (80.0-100.0) fL MCH 33.0 (25.0-35.0) pg MCHC 34.3 (31.0-37.0) g/dL RDW 17.2 H (11.5-15.5) % Plt Count 147 L (150-450) k/uL MPV 8.6 Neutrophils % (Manual) 91 % Lymphocytes % (Manual) 8 % Monocytes % (Manual) 1 % Neutrophils # (Manual) 9.19 H (1.3-7.7) k/uL Lymphocytes # (Manual) 0.81 L (1.0-4.8) k/uL Monocytes # (Manual) 0.10 (0-1.0) k/uL Nucleated RBCs 0 (0-0) /100 WBC Manual Slide Review Performed Anisocytosis Slight Macrocytosis Slight Sodium 131 L (137-145) mmol/L Potassium 3.9 (3.5-5.1) mmol/L Chloride 100 (98-107) mmol/L Carbon Dioxide 25 (22-30) mmol/L Anion Gap 6 mmol/L BUN 17 (7-17) mg/dL Creatinine 0.57 (0.52-1.04) mg/dL Est GFR (CKD-EPI)AfAm >90 (>60 ml/min/1.73 sqM) Est GFR (CKD-EPI)NonAf >90 (>60 ml/min/1.73 sqM) Glucose 97 (74-99) mg/dL Plasma Lactic Acid Ronal 1.0 (0.7-2.0) mmol/L Calcium 8.9 (8.4-10.2) mg/dL Magnesium 1.6 (1.6-2.3) mg/dL Total Bilirubin 1.2 (0.2-1.3) mg/dL AST 47 H (14-36) U/L ALT 63 H (4-34) U/L Alkaline Phosphatase 82 (38-126) U/L Total Protein 6.5 (6.3-8.2) g/dL Albumin 4.2 (3.5-5.0) g/dL Influenza Type A (PCR) (Not Detectd) Influenza Type B (PCR) (Not Detectd) RSV (PCR) (Not Detectd) SARS-CoV-2 (PCR) (Not Detectd) 09/07/23 Range/Units 15:58 WBC (3.8-10.6) k/uL RBC (3.80-5.40) m/uL Hgb (11.4-16.0) gm/dL Hct (34.0-46.0) % MCV (80.0-100.0) fL MCH (25.0-35.0) pg MCHC (31.0-37.0) g/dL RDW (11.5-15.5) % Plt Count (150-450) k/uL MPV Neutrophils % (Manual) % Lymphocytes % (Manual) % Monocytes % (Manual) % Neutrophils # (Manual) (1.3-7.7) k/uL Lymphocytes # (Manual) (1.0-4.8) k/uL Monocytes # (Manual) (0-1.0) k/uL Nucleated RBCs (0-0) /100 WBC Manual Slide Review Anisocytosis Macrocytosis Sodium (137-145) mmol/L Potassium (3.5-5.1) mmol/L Chloride (98-107) mmol/L Carbon Dioxide (22-30) mmol/L Anion Gap mmol/L BUN (7-17) mg/dL Creatinine (0.52-1.04) mg/dL Est GFR (CKD-EPI)AfAm (>60 ml/min/1.73 sqM) Est GFR (CKD-EPI)NonAf (>60 ml/min/1.73 sqM) Glucose (74-99) mg/dL Plasma Lactic Acid Ronal (0.7-2.0) mmol/L Calcium (8.4-10.2) mg/dL Magnesium (1.6-2.3) mg/dL Total Bilirubin (0.2-1.3) mg/dL AST (14-36) U/L ALT (4-34) U/L Alkaline Phosphatase (38-126) U/L Total Protein (6.3-8.2) g/dL Albumin (3.5-5.0) g/dL Influenza Type A (PCR) Not Detected (Not Detectd) Influenza Type B (PCR) Not Detected (Not Detectd) RSV (PCR) Not Detected (Not Detectd) SARS-CoV-2 (PCR) Not Detected (Not Detectd) Disposition <Yanet Michael - Last Filed: 09/07/23 14:16> Time of Disposition: 18:53 <Dex Veloz - Last Filed: 09/07/23 18:53> Clinical Impression: Breast cancer, left, Weakness, Dehydration, Adverse effect of chemotherapy Disposition: ADMITTED IP TO THIS HOSP Condition: Fair Referrals: Farzaneh Rich DO [Primary Care Provider] - 1-2 days
[2023-09-07] MEDS: ONDANSETRON 4 MG/2 ML VIAL IVP STA (16:28)
[2023-09-07] MEDS: KETOROLAC 15 MG/ML 1 ML VIAL IVP STA ×2 (16:28→19:36)
[2023-09-07] MEDS: HYDROmorphone 0.5 MG/0.5 ML SYRINGE IVP STA ×2 (16:29→19:40)
[2023-09-07 16:45] LABS: Anisocytosis Slight; HCT 34.1 % (34.0-46.0); HGB 11.7 gm/dL (11.4-16.0); MCHC 34.3 g/dL (31.0-37.0); MCV 96.3 fL (80.0-100.0); Macrocytosis Slight; Mean Platelet Volume 8.6; Platelet Count 147 k/uL (150-450); RBC 3.54 m/uL (3.80-5.40); RDW 17.2 % (11.5-15.5); WBC 10.1 k/uL (3.8-10.6)
[2023-09-07 16:53] LABS: ALT 63 U/L (4-34); AST 47 U/L (14-36); African American GFR (CKD) >90 (>60 ml/min/1.73 sqM); Albumin 4.2 g/dL (3.5-5.0); Alkaline Phosphatase 82 U/L (38-126); Anion Gap 6 mmol/L; Blood Urea Nitrogen 17 mg/dL (7-17); Calcium 8.9 mg/dL (8.4-10.2); Carbon Dioxide 25 mmol/L (22-30); Chloride 100 mmol/L (98-107); Glucose 97 mg/dL (74-99); Magnesium 1.6 mg/dL (1.6-2.3); Non-African American GFR(CKD) >90 (>60 ml/min/1.73 sqM); Potassium 3.9 mmol/L (3.5-5.1); Sodium 131 mmol/L (137-145); Total Bilirubin 1.2 mg/dL (0.2-1.3); Total Protein 6.5 g/dL (6.3-8.2)
[2023-09-07 17:08] LABS: Lymphocytes # (M) 0.81 k/uL (1.0-4.8); Neutrophils # (M) 9.19 k/uL (1.3-7.7); Neutrophils % (M) 91 %; Nucleated Red Blood Cells 0 /100 WBC (0-0); Total Cells Counted 100
[2023-09-07] MEDS: SODIUM CHLORIDE 0.9% 1,000 ML IV ONE (17:24)
[2023-09-07] MEDS: SODIUM CHLORIDE 0.9% 500 ML 500 ML IV ONE (17:28)
[2023-09-07 18:46] LABS: Appearance,Urine Cloudy (Clear); Bacteria,Urine Rare /hpf; Bilirubin,Urine Negative (Negative); Blood,Urine Negative (Negative); Color,Urine Colorless; Glucose,Urine (UA) Negative (Negative); Ketones,Urine Negative (Negative); Leukocyte Esterase,Urine Large (Negative); Mucus,Urine Rare /hpf; Nitrite,Urine Negative (Negative); Protein,Urine Negative (Negative); RBC,Urine 3 /hpf (0-5); Specific Gravity,Urine 1.007 (1.001-1.035); Squamous Epithelial Cell,Urine 12 /hpf (0-4); Urobilinogen,Urine <2.0 mg/dL (<2.0); WBC,Urine 47 /hpf (0-5)
[2023-09-07] MEDS: SODIUM CHLORIDE 0.9% 1,000 ML IV SCH (18:48)
[2023-09-07] MEDS ORDERED: NALOXONE 0.4 MG/ML 1 ML VIAL IV PRN (18:53)
[2023-09-07] MEDS: HYDROmorphone 0.5 MG/0.5 ML SYRINGE IVP PRN (19:36)
[2023-09-08] MEDS: HYDROmorphone 1 MG/ML 1 ML SYRINGE IVP PRN (02:18)
[2023-09-08] MEDS: HYDROcodone/APAP 5-325MG 1 EACH TAB PO PRN (08:59)
[2023-09-08] MEDS: NYSTATIN 100,000 UNIT/ML SUSP 500,000 UNIT/5 ML CUP PO SCH (12:55)
[2023-09-08] MEDS ORDERED: LOPERAMIDE 2 MG CAP PO PRN (13:01)
[2023-09-08] MEDS ORDERED: FLUTICASONE 50MCG/SPRAY NASAL 16GM EA NOSTRIL PRN (13:01)
[2023-09-08] MEDS ORDERED: LORATADINE 10 MG TAB PO PRN (13:01)
[2023-09-08] MEDS ORDERED: DICYCLOMINE 10 MG CAP PO PRN (13:01)
[2023-09-08] MEDS ORDERED: NAPROXEN 250 MG TAB PO PRN (13:01)
[2023-09-08] MEDS ORDERED: TEMAZEPAM 15 MG CAP PO PRN (13:03)
[2023-09-08] MEDS ORDERED: dexAMETHasone 4 MG TAB PO SCH (13:15)
--- NOTE | 2023-09-08 13:34 | HP ---
HISTORY AND PHYSICAL CHIEF COMPLAINT: Generalized body aches and pain and weakness. HISTORY OF PRESENT ILLNESS: This is a 57-year-old woman with a past medical history of multiple medical problems, being treated for CA breast for chemotherapy. The patient complains of generalized weakness and tiredness. The patient came to [facility], admitted for further evaluation and treatment. The white count is normal, however, the patient has abnormal urine. There is no history of any rigors or chills at this time. There is a history of fever, temperature up to 103. PAST MEDICAL HISTORY: History of breast cancer, history of ovarian cyst, cholecystectomy, chemotherapy, anxiety, depression, rest of the history and rest of the chart is also reviewed. HOME MEDICATIONS: Reviewed include Decadron, dose and rest of medications reviewed. ALLERGIES: None. FAMILY HISTORY: No history of heart disease or strokes in the family. SOCIAL HISTORY: History of smoking. REVIEW OF SYSTEMS: A 14-point review is negative except as mentioned earlier. PHYSICAL EXAMINATION: VITAL SIGNS: Pulse is 92, blood pressure is 150/80, respirations 18, and temperature 100.3. HEENT: Conjunctivae normal. NECK: No jugular venous distention. CARDIOVASCULAR: S1, S2 muffled. RESPIRATIONS: Diminished at the bases, few scattered rhonchi, no crackles. ABDOMEN: Soft, nontender. LEGS: No edema. No swelling. NERVOUS SYSTEM: No focal deficit. LABORATORY DATA: Sodium 131, rest of the labs are noted. Chest x-ray is not available assessment. 1. Possible sepsis related to chemotherapy, present on admission. 2. Generalized body aches and pains. 3. Possible acute UTI present on admission. 4. Breast cancer on chemotherapy. 5. History of cholecystectomy. 6. History of anxiety and depression. 7. History of continued ongoing nicotine dependence. RECOMMENDATIONS AND DISCUSSION: This 57-year-old woman presented with multiple complex medical issues, we will monitor the patient closely. I would recommend cefepime IV cultures, Infectious Disease evaluation, oncology evaluation, chest x-ray of with blood culture, urine culture. Repeat labs. DVT prophylaxis. Overall prognosis extremely guarded because of the multiple complex medical issues. Symptomatic treatment, home medications will be continued once they are confirmed and discussed with patient. Further recommendations to follow. See orders for details. MMODL / IJN: [id number] /
[2023-09-08] MEDS: PANTOPRAZOLE 40 MG/10 ML VIAL IVP SCH (13:40)
[2023-09-08] MEDS: buPROPion XL 300 MG TAB.ER.24H PO SCH (13:40)
--- NOTE | 2023-09-08 13:43 | XR ---
EXAMINATION TYPE: XR chest 1V portable DATE OF EXAM: 09/08/2023 COMPARISON: 06/20/2023 HISTORY: Pneumonia TECHNIQUE: Single frontal view of the chest is obtained. FINDINGS: There is no focal air space opacity, pleural effusion, or pneumothorax seen. The cardiac silhouette size is within normal limits. The osseous structures are intact. Elevated right hemidiap hragm. Mediport catheter seen with the tip overlying the SVC. Postsurgical changes overlying the cerv ical spine. Diffuse osteopenia and shoulder arthropathy. IMPRESSION: No acute process.
[2023-09-08] MEDS: ONDANSETRON 4 MG/2 ML VIAL IVP PRN (15:31)
--- NOTE | 2023-09-08 20:20 | P.CONS ---
History of Present Illness - Reason for Consult Consult date: 09/08/23 breast cancer Requesting physician: Dex Veloz - Chief Complaint pain, nausea, dehydration - History of Present Illness Patient is a 57 year old with a significant history of breast cancer. She is a patient of Dr. Farah. She initially presented with a palpable tender & hard mass in upper outer quadrant of left breast in Apr 2023. Diagnostic mammogram revealed 3-4 cm 2 O'clock upper outer quadrant suspicious left breast lesion, as well as, adjucant 2cm lesion. 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 It was recommended to patient to start on neoadjuvant TCH-P followed by local surgery if good response to treatment noted, followed by XRT and endocrine therapy. She completed cycle 5 of TCH-P on 09/03/23 with neulasta on 09/04. She has been experiencing symptoms of nausea and decreased oral intake with treatment, and had dose reduction after cycle 1. She was admitted in 06/2023 for neutropenic fever. Was seen in f/u on 08/25/23 and was c/o left breast tenderness, breast MRI scheduled for 09/11/23. Patient presented to the emergency room for maliase, generalized body pain, nausea and decreased oral intake over the last 2 days. Reports 1 epsiode of vomiting but is having persisting nausea, but nausea has improved since admission and was able to tolerate eggs this morning. Denies diarrhea, abd pain, and urinary complaints. Denies fever and chills. Denies cough and SOB. CBC reviewed, WBC 10.1, ANC 9,100, hemoglobin 11.7, platelets 147,000. Creatinine 0.57, GFR greater than 90. RSV, COVID, influenza negative. UA suspicious for UTI. IM team has started Rocephin and consulted ID. Pancultures ordered. P atient did have temperature of 100.4 this morning. Review of Systems 10 point ROS is negative except as stated in the HPI Past Medical History Past Medical History: No Reported History, Cancer Additional Past Medical History / Comment(s): ovarian cyst, stage 2 breast cx- may 21 History of Any Multi-Drug Resistant Organisms: None Reported Past Surgical History: Cholecystectomy Additional Past Surgical History / Comment(s): bunionectomy, C4 neck surgery 2020 Past Anesthesia/Blood Transfusion Reactions: Postoperative Nausea & Vomiting (PONV) Additional Past Anesthesia/Blood Transfusion Reaction / Comm: PONV after one surgery Past Psychological History: Anxiety, Depression Smoking Status: Current every day smoker Past Alcohol Use History: None Reported Additional Past Alcohol Use History / Comment(s): smoker since 18 years old, 1/2ppd or less Past Drug Use History: None Reported - Past Family History Mother Family Medical History: No Reported History Medications and Allergies Home Medications Medication Instructions Recorded Confirmed Type DULoxetine HCL [Cymbalta] 60 mg PO HS 05/07/23 09/07/23 History Dicyclomine [Bentyl] 10 mg PO QID PRN 05/07/23 09/07/23 History Famotidine [Pepcid] 40 mg PO DAILY PRN 05/07/23 09/07/23 History Loratadine [Claritin] 10 mg PO DAILY PRN 05/07/23 09/07/23 History buPROPion XL [Wellbutrin XL] 300 mg PO DAILY 05/07/23 09/07/23 History Naproxen Sodium [Aleve] 220 mg PO BID PRN 06/02/23 09/07/23 History HYDROcodone/APAP 5-325MG [[place] 1 tab PO Q6HR PRN 3 Days #10 tab 06/04/23 Rx 5-325] Fluticasone Nasal [place] [Flonase 1 spr EA NOSTRIL DAILY PRN 06/20/23 09/07/23 History Nasal [place]] Lidocaine-Prilocaine Cream [Emla 1 applic TOPICAL DAILY PRN 06/20/23 09/07/23 History Cream 2.5%/2.5%] Ondansetron [Zofran] 4 mg PO Q6H PRN 06/20/23 09/07/23 History Prochlorperazine [Compazine] 10 mg PO Q6H PRN 06/20/23 09/07/23 History dexAMETHasone [Decadron] 8 mg PO DIRECTED 06/20/23 09/07/23 History Loperamide [Imodium] 2 mg PO QID PRN 3 Days #12 cap 06/24/23 09/07/23 Rx Allergies Allergy/AdvReac Type Severity Reaction Status Date / Time No Known Allergies Allergy Verified 09/07/23 20:09 Physical Exam Vitals: Vital Signs Temp Pulse Pulse Resp BP BP Pulse Ox 09/08/23 02:00 100.4 F H 101 H 18 156/78 97 09/08/23 00:05 100.3 F H 92 18 150/84 100 09/07/23 23:05 98.9 F 98 18 138/86 96 09/07/23 22:00 100 18 140/73 96 09/07/23 18:52 96 18 127/77 98 09/07/23 18:00 97 139/83 09/07/23 16:00 91 18 139/83 97 09/07/23 14:29 99.2 F 102 H 20 97/61 99 Intake and Output 09/07/23 09/08/23 09/08/23 22:59 06:59 14:59 Intake Total 120 Balance 120 Intake: Oral 120 Other: # Voids 1 Weight 102.058 kg - Constitutional General appearance: average body habitus, no acute distress - EENT thrush noted Eyes: anicteric sclerae, EOMI ENT: hearing grossly normal - Respiratory Respiratory: bilateral: CTA - Cardiovascular Rhythm: regular Heart sounds: normal: S1, S2 Abnormal Heart Sounds: no systolic murmur, no diastolic murmur, no rub, no S3 Gallop, no S4 Gallop, no click, no other - Gastrointestinal suprapubic tenderness, no guarding. Bilateral CVA tenderness General gastrointestinal: soft - Integumentary Integumentary: no cyanotic, no jaundiced - Neurologic Neurologic: CNII-XII intact - Musculoskeletal Musculoskeletal: strength equal bilaterally - Psychiatric Psychiatric: A&O x's 3 Results CBC & Chem 7: 09/07/23 15:58 09/07/23 15:58 Labs: Abnormal Lab Results - Last 24 Hours (Table) 09/07/23 09/07/23 09/07/23 Range/Units 15:58 15:58 15:58 RBC 3.54 L (3.80-5.40) m/uL RDW 17.2 H (11.5-15.5) % Plt Count 147 L (150-450) k/uL Neutrophils # (Manual) 9.19 H (1.3-7.7) k/uL Lymphocytes # (Manual) 0.81 L (1.0-4.8) k/uL Sodium 131 L (137-145) mmol/L AST 47 H (14-36) U/L ALT 63 H (4-34) U/L Urine Appearance Cloudy H (Clear) Ur Leukocyte Esterase Large H (Negative) Urine WBC 47 H (0-5) /hpf Ur Squamous Epith Cells 12 H (0-4) /hpf Urine Bacteria Rare H (None) /hpf Urine Mucus Rare H (None) /hpf Chest x-ray: report reviewed Assessment and Plan (1) Adverse effect of chemotherapy Current Visit: Yes Status: Acute Priority: High Code(s): T45.1X5A - ADVERSE EFFECT OF ANTINEOPLASTIC AND IMMUNOSUP DRUGS, INIT SNOMED Code(s): 136642768 (2) Breast cancer, left Current Visit: Yes Status: Acute Priority: High Code(s): C50.912 - MALIGNANT NEOPLASM OF UNSPECIFIED SITE OF LEFT FEMALE BREAST SNOMED Code(s): 175181611 (3) Dehydration Current Visit: Yes Status: Acute Priority: High Code(s): E86.0 - DEHYDRATION SNOMED Code(s): 70637091 (4) Fever Current Visit: Yes Status: Acute Priority: High Code(s): R50.9 - FEVER, UNSPECIFIED SNOMED Code(s): 610666084 Plan: Breast cancer -Neoadjuvant treatment, s/p 5th cycle of TCH-P on 09/03 with G-CSF on 09/04. Counts stable -Clinic fu scheduled with Dr. Farah on 09/22 prior to proceeding with next cycle -Pt scheduled to complete regimen on 09/24, and will plan for evaluation with breast surgeon following completion of treatment Fever: -T max 100.4, UA suspicious for UTI. Pancultures ordered -CXR negative for acute processes -Rocephin started. ID consulted Dehydration: -Decreased oral intake r/t persisting nausea and overall feeling unwell since last treatment -Continue IV hydration and encouraged increasing oral intake as tolerated Thrush: -Noted on exam, denies oral pain/irritation -Nystatin started Attests: I have seen and examined pt, performed H&P, developed impression and plan of care. Discussed with dictator. Agree with documentation, dictated as a scribe.
[2023-09-08] MEDS: DULoxetine HCL 60 MG CAPSULE.DR PO SCH (20:53)
--- NOTE | 2023-09-08 22:41 | P.CONS ---
History of Present Illness - Reason for Consult Consult date: 09/08/23 - History of Present Illness Patient is a 57-year-old female with a past medical history significant for stage II breast cancer diagnosed May 2023 for the patient has been on chemotherapy patient presenting to the ER for evaluation of diffuse bodyaches and the patient has been significantly getting weak and unable to eat last chemotherapy was on patient denies having any headache or URI symptoms denies having any chest pain or shortness of breath or cough some nausea but no vomiting no abdominal pain or any diarrhea patient on presentation to the hospital did have low-grade fever of 99.2 subsequently the patient spike a fever of 100.4 F, patient was not tachycardic hypotensive or hypoxic did have a white count of 10.1 with a left shift kidney function was normal liver isms mildly elevated urine has been positive with large leukocyte Estrace 47 WBC influenza RSV and COVID testing was negative patient did have a chest x-ray that was reported negative with concern for UTI the patient was given a dose of Rocephin subsequently but he was switched over to cefepime infectious disease was consulted for further management of antibiotic therapy Past Medical History Past Medical History: No Reported History, Cancer Additional Past Medical History / Comment(s): ovarian cyst, stage 2 breast cx- may 21 History of Any Multi-Drug Resistant Organisms: None Reported Past Surgical History: Cholecystectomy Additional Past Surgical History / Comment(s): bunionectomy, C4 neck surgery 2020 Past Anesthesia/Blood Transfusion Reactions: Postoperative Nausea & Vomiting (PONV) Additional Past Anesthesia/Blood Transfusion Reaction / Comm: PONV after one surgery Past Psychological History: Anxiety, Depression Smoking Status: Current every day smoker Past Alcohol Use History: None Reported Additional Past Alcohol Use History / Comment(s): smoker since 18 years old, 1/2ppd or less Past Drug Use History: None Reported - Past Family History Mother Family Medical History: No Reported History Medications and Allergies Home Medications Medication Instructions Recorded Confirmed Type DULoxetine HCL [Cymbalta] 60 mg PO HS 05/07/23 09/07/23 History Dicyclomine [Bentyl] 10 mg PO QID PRN 05/07/23 09/07/23 History Famotidine [Pepcid] 40 mg PO DAILY PRN 05/07/23 09/07/23 History Loratadine [Claritin] 10 mg PO DAILY PRN 05/07/23 09/07/23 History buPROPion XL [Wellbutrin XL] 300 mg PO DAILY 05/07/23 09/07/23 History Naproxen Sodium [Aleve] 220 mg PO BID PRN 06/02/23 09/07/23 History HYDROcodone/APAP 5-325MG [[place] 1 tab PO Q6HR PRN 3 Days #10 tab 06/04/23 09/07/23 Rx 5-325] Fluticasone Nasal [place] [Flonase 1 spr EA NOSTRIL DAILY PRN 06/20/23 09/07/23 History Nasal [place]] Lidocaine-Prilocaine Cream [[place] 1 applic TOPICAL DAILY PRN 06/20/23 09/07/23 History Cream 2.5%/2.5%] Ondansetron [Zofran] 4 mg PO Q6H PRN 06/20/23 09/07/23 History Prochlorperazine [Compazine] 10 mg PO Q6H PRN 06/20/23 09/07/23 History dexAMETHasone [Decadron] 8 mg PO DIRECTED 06/20/23 09/07/23 History Loperamide [Imodium] 2 mg PO QID PRN 3 Days #12 cap 06/24/23 09/07/23 Rx Allergies Allergy/AdvReac Type Severity Reaction Status Date / Time No Known Allergies Allergy Verified 09/07/23 20:09 Physical Exam Vitals: Vital Signs Temp Pulse Pulse Pulse Resp BP BP 09/08/23 13:10 99.4 F 88 16 116/71 09/08/23 08:00 99.7 F H 98 18 109/71 09/08/23 02:00 100.4 F H 101 H 18 156/78 09/08/23 00:05 100.3 F H 92 18 150/84 09/07/23 23:05 98.9 F 98 18 138/86 09/07/23 22:00 100 18 140/73 09/07/23 18:52 96 18 127/77 09/07/23 18:00 97 139/83 09/07/23 16:00 91 18 139/83 09/07/23 14:29 99.2 F 102 H 20 97/61 Pulse Ox 09/08/23 13:10 96 09/08/23 08:00 98 09/08/23 02:00 97 09/08/23 00:05 100 09/07/23 23:05 96 09/07/23 22:00 96 09/07/23 18:52 98 09/07/23 18:00 09/07/23 16:00 97 09/07/23 14:29 99 Intake and Output 09/07/23 09/08/23 09/08/23 22:59 06:59 14:59 Intake Total 120 Balance 120 Intake: Oral 120 Other: Voiding Method Toilet # Voids 1 1 Weight 102.058 kg Results CBC & Chem 7: 09/07/23 15:58 09/07/23 15:58 Labs: Abnormal Lab Results - Last 24 Hours (Table) 09/07/23 09/07/23 09/07/23 Range/Units 15:58 15:58 15:58 RBC 3.54 L (3.80-5.40) m/uL RDW 17.2 H (11.5-15.5) % Plt Count 147 L (150-450) k/uL Neutrophils # (Manual) 9.19 H (1.3-7.7) k/uL Lymphocytes # (Manual) 0.81 L (1.0-4.8) k/uL Sodium 131 L (137-145) mmol/L Uric Acid (3.7-7.4) mg/dL AST 47 H (14-36) U/L ALT 63 H (4-34) U/L Urine Appearance Cloudy H (Clear) Ur Leukocyte Esterase Large H (Negative) Urine WBC 47 H (0-5) /hpf Ur Squamous Epith Cells 12 H (0-4) /hpf Urine Bacteria Rare H (None) /hpf Urine Mucus Rare H (None) /hpf 09/08/23 Range/Units 12:04 RBC (3.80-5.40) m/uL RDW (11.5-15.5) % Plt Count (150-450) k/uL Neutrophils # (Manual) (1.3-7.7) k/uL Lymphocytes # (Manual) (1.0-4.8) k/uL Sodium (137-145) mmol/L Uric Acid 2.1 L (3.7-7.4) mg/dL AST (14-36) U/L ALT (4-34) U/L Urine Appearance (Clear) Ur Leukocyte Esterase (Negative) Urine WBC (0-5) /hpf Ur Squamous Epith Cells (0-4) /hpf Urine Bacteria (None) /hpf Urine Mucus (None) /hpf Assessment and Plan Plan: 1patient presented to hospital with generalized bodyaches weakness in this patient who did have a fever positive UA concerning for symptomatic UTI likely from enteric gram-negative pathogen chest x-ray was reported negative for acute infiltrate abdominal soft on clinical examination and no evidence of any joint swelling or cellulitis 2-blood and urine culture have been obtained results will be followed 3-continue with cefepime while waiting for the culture to finalize We will follow on clinical condition and cultures to further adjust medication if needed Thank you for this consultation we will follow the patient along with you Dictation was produced using [employer] dictation software. please excuse any grammatical, word or spelling errors. Time with Patient: Greater than 30
[2023-09-08] MEDS: CEFEPIME 2 GM in SODIUM CHLORIDE 0.9% 100 ML IVPB SCH (23:34)
[2023-09-09] MEDS: PROCHLORPERAZINE 10 MG TAB PO PRN (09:50)
[2023-09-09 11:23] LABS: BUN/Creat Ratio 14.67 Ratio (12.00-20.00); Blood Urea Nitrogen 8.8 mg/dL (9.0-27.0); Calcium 8.5 mg/dL (8.7-10.3); Carbon Dioxide 25.2 mmol/L (21.6-31.8); Chloride 99 mmol/L (96-109); Glucose 103 mg/dL (70-110); Potassium 3.6 mmol/L (3.5-5.5); Sodium 134 mmol/L (135-145)
[2023-09-09 11:35] LABS: Basophils # (M) 0 X 10*3/uL (0.00-0.10); Eosinophils # (M) 0 X 10*3/uL (0.04-0.35); HCT 29.6 % (37.2-46.3); HGB 9.5 g/dL (12.0-15.0); Lymphocytes # (M) 0.85 X 10*3/uL (0.90-5.00); MCH 31.8 pg (27.0-32.0); MCHC 32.1 g/dL (32.0-37.0); Mean Platelet Volume 11.1 FL (9.5-12.2); Metamyelocytes % 3 % (0-0); Monocytes # (M) 0.06 X 10*3/uL (0.20-1.00); NRBC Per 100 WBC 0 X 10*3/uL (0.00-0.01); Neutrophils # (M) 0.51 X 10*3/uL (1.80-7.70); Neutrophils % (M) 35 %; Nucleated Red Blood Cells 3 /100 WBCS; Platelet Count 111 X 10*3/uL (140-440); RBC 2.99 X 10*6/uL (4.10-5.20); RBC Morphology Normal (Normal); WBC 1.46 X 10*3/uL (4.50-10.00)
[2023-09-09] MEDS: MULTIVITAMINS, THERA 1 EACH TAB PO SCH (12:56)
--- NOTE | 2023-09-09 13:32 | P.PN ---
Subjective Progress Note Date: 09/09/23 At today's visit patient is resting comfortably in bed. She is reporting persisting nausea and was feeling like Zofran was not helping improve her symptoms. Patient was started on Compazine and states nausea is improving. She is tolerating small amounts of food and hydration. Denies any episodes of vo miting diarrhea. No fever noted over the last 24 hours. Blood and urine culture pending Objective - Vital Signs Vital signs: Vital Signs Temp 98.8 F 09/09/23 07:20 Pulse 86 09/09/23 07:20 Resp 16 09/09/23 07:20 BP 122/67 09/09/23 07:20 Pulse Ox 96 09/09/23 07:20 FiO2 Intake & Output 09/08/23 09/09/23 09/09/23 18:59 06:59 18:59 Intake Total 1300 300 Balance 1300 300 Intake: Intake, IV Titration 700 Amount Cefepime 2 gm In Sodium 100 Chloride 0.9% 100 ml @ 25 mls/hr IVPB Q8HR [facility] Rx# :[id number] Sodium Chloride 0.9% 1, 600 000 ml @ 75 mls/hr IV . [id number] [facility] Rx#:[id number] Oral 600 300 Other: Voiding Method Toilet Toilet # Voids 1 3 - Constitutional General appearance: Present: no acute distress - EENT Eyes: Present: anicteric sclerae, EOMI ENT: Present: hearing grossly normal - Respiratory Details: breathing even and unlabored - Cardiovascular Details: well-perfused - Gastrointestinal General gastrointestinal: Present: soft. Absent: tenderness - Integumentary Integumentary: Absent: cyanotic, jaundiced - Musculoskeletal Musculoskeletal: Present: generalized weakness, strength equal bilaterally - Psychiatric Psychiatric: Present: A&O x's 3 - Labs CBC & Chem 7: 09/09/23 06:42 09/09/23 06:42 Labs: Abnormal Lab Results - Last 24 Hours (Table) 09/09/23 09/09/23 Range/Units 06:42 06:42 WBC 1.46 A* (4.50-10.00) X 10*3/uL RBC 2.99 L (4.10-5.20) X 10*6/uL Hgb 9.5 L (12.0-15.0) g/dL Hct 29.6 L (37.2-46.3) % MCV 99.0 H (80.0-97.0) FL RDW 17.0 H (11.5-14.5) % Plt Count 111 L (140-440) X 10*3/uL Lymphocytes # (Manual) 0.85 L (0.90-5.00) X 10*3/uL Monocytes # (Manual) 0.06 L (0.20-1.00) X 10*3/uL Eosinophils # (Manual) 0 L (0.04-0.35) X 10*3/uL Sodium 134 L (135-145) mmol/L BUN 8.8 L (9.0-27.0) mg/dL Calcium 8.5 L (8.7-10.3) mg/dL Assessment and Plan (1) Adverse effect of chemotherapy Current Visit: Yes Status: Acute Priority: High Code(s): T45.1X5A - ADVERSE EFFECT OF ANTINEOPLASTIC AND IMMUNOSUP DRUGS, INIT SNOMED Code(s): 937352531 (2) Breast cancer, left Current Visit: Yes Status: Acute Priority: High Code(s): C50.912 - MALIGNANT NEOPLASM OF UNSPECIFIED SITE OF LEFT FEMALE BREAST SNOMED Code(s): 533014279 (3) Dehydration Current Visit: Yes Status: Acute Priority: High Code(s): E86.0 - DEHYDRATION SNOMED Code(s): 19999441 (4) Fever Current Visit: Yes Status: Acute Priority: High Code(s): R50.9 - FEVER, UNSPECIFIED SNOMED Code(s): 073489271 Plan: Breast cancer -Neoadjuvant treatment, s/p 5th cycle of TCH-P on 09/03 with G-CSF on 09/04. -Clinic fu scheduled with Dr. Farah on 09/22 prior to proceeding with next c ycle -Pt scheduled to complete regimen on 09/24, and will plan for evaluation with breast surgeon following completion of treatment Fever: -T max 100.4. Pt now afebrile x 24 hrs. UA suspicious for UTI. Blood and urine culture pending -CXR negative for acute processes -Abx changed to cefepime. ID folllowing -CBC today revealed neutropenia, with WBC 1.4, ANC not reported. G-CSF given 6 days ago, should start to see increase in WBCs in the next 1-3 days Dehydration: -Decreased oral intake r/t persisting nausea and overall feeling unwell since last treatment -Continue IV hydration and encouraged increasing oral intake as tolerated. Compazine added with improvement in nausea Thrush: -Noted on exam, denies oral pain/irritation -Nystatin started, however reporting medication is making her nauseous. Recommended to just rinse with medication and not swallow. Salt and soda rinse added
[2023-09-09] MEDS: SALT AND SODA MOUTHWASH 1,000 ML PO SCH (14:48)
--- NOTE | 2023-09-10 07:21 | PN ---
PROGRESS NOTE DATE OF SERVICE: 09/09/2023 SUBJECTIVE: This is a 57-year-old woman who was admitted with possibly sepsis, she is on empiric antibiotics at this time. The cultures are negative so far. OBJECTIVE: VITAL SIGNS: Pulse is 86, blood pressure 120/60, respirations 16. CHEST: Clear to auscultation. CARDIOVASCULAR: S1, S2. ABDOMEN: Soft. NERVOUS SYSTEM: No focal deficits. LABORATORY DATA: WBC 1.46, rest of the labs are noted. ASSESSMENT: 1. Acute neutropenic sepsis, present on admission. 2. Generalized body aches and pains. 3. Possible acute UTI present on admission. 4. Breast cancer, on chemotherapy. 5. History of cholecystectomy. 6. Anxiety, depression. 7. History of continued ongoing nicotine dependence. RECOMMENDATIONS: Recommended to continue current management, continue symptomatic treatment, otherwise at this time, I would recommend empiric antibiotics. Follow the cultures. Prognosis guarded. Further recommendations to follow. MMODL / IJN: [id number] /
[2023-09-10 11:41] LABS: HGB 9.7 g/dL (12.0-15.0); MCH 31.7 pg (27.0-32.0); MCHC 32.3 g/dL (32.0-37.0); Mean Platelet Volume 11.6 FL (9.5-12.2); NRBC Per 100 WBC 0 X 10*3/uL (0.00-0.01); Platelet Count 143 X 10*3/uL (140-440); RBC 3.06 X 10*6/uL (4.10-5.20); RDW 16.7 % (11.5-14.5); WBC 2.02 X 10*3/uL (4.50-10.00)
[2023-09-10 12:24] LABS: Basophils # (A) 0.03 X 10*3/uL (0.00-0.10); Basophils % (A) 1.5 %; Eosinophils # (A) 0 X 10*3/uL (0.04-0.35); Eosinophils % (A) 0 %; Lymphocytes # (A) 0.85 X 10*3/uL (0.90-5.00); Lymphocytes % (A) 42.1 %; Monocytes # (A) 0.35 X 10*3/uL (0.20-1.00); Monocytes % (A) 17.3 %; Neutrophils # (A) 0.78 X 10*3/uL (1.80-7.70); Neutrophils % (A) 38.6 %; Toxic Granulation 2+
[2023-09-10 12:26] LABS: ALT 58 U/L (8-44); AST 25 U/L (13-35); Albumin 3.7 g/dL (3.8-4.9); Albumin/Globulin Ratio 2.06 Ratio (1.60-3.17); Alkaline Phosphatase 60 U/L (41-126); Blood Urea Nitrogen 6.4 mg/dL (9.0-27.0); Calcium 8.7 mg/dL (8.7-10.3); Carbon Dioxide 25.1 mmol/L (21.6-31.8); Chloride 100 mmol/L (96-109); Globulin 1.8 g/dL (1.6-3.3); Glucose 99 mg/dL (70-110); Potassium 3.1 mmol/L (3.5-5.5); Sodium 135 mmol/L (135-145); Total Bilirubin 0.3 mg/dL (0.3-1.2); Total Protein 5.5 g/dL (6.2-8.2)
[2023-09-10] MEDS ORDERED: Potassium Replacement Protocol 1 EACH MISC MISCELLANE PRN (13:53)
[2023-09-10] MEDS ORDERED: Magnesium Replacement Protocol 1 EACH MISC MISCELLANE PRN (13:53)
[2023-09-10] MEDS: POTASSIUM CHLORIDE ER 20 MEQ TAB.ER PO SCH ×2 (14:35→19:34)
--- NOTE | 2023-09-10 14:49 | P.PN ---
Subjective Progress Note Date: 09/09/23 Principal diagnosis: Reason for follow-up is fever and possible UTI Patient is a 57-year-old female with a past medical history significant for stage II breast cancer diagnosed May 2023 for the patient has been on chemotherapy patient presenting to the ER for evaluation of diffuse bodyaches and the patient has been significantly getting weak and unable to eat, patient did have low-grade fever positive UA concerning for symptomatic urinary tract infection. On today's evaluation that is 09/09/2023, the patient did have resolution of her fever and is afebrile this morning, patient is on room air, the patient denies chest pain shortness of breath or cough, patient denies nausea no vomiting no abdominal pain and no diarrhea has been reported still complaining of feeling weak and some chills Patient white count is 1.46, creatinine 0.6 cultures currently pending Objective - Vital Signs Vital signs: Vital Signs Temp 98.8 F 09/09/23 07:20 Pulse 86 09/09/23 07:20 Resp 16 09/09/23 07:20 BP 122/67 09/09/23 07:20 Pulse Ox 96 09/09/23 07:20 FiO2 Intake & Output 09/08/23 09/09/23 09/09/23 18:59 06:59 18:59 Intake Total 1300 300 Balance 1300 300 Intake: Intake, IV Titration 700 Amount Cefepime 2 gm In Sodium 100 Chloride 0.9% 100 ml @ 25 mls/hr IVPB Q8HR [facility] Rx# :[id number] Sodium Chloride 0.9% 1, 600 000 ml @ 75 mls/hr IV . [id number] [facility] Rx#:[id number] Oral 600 300 Other: Voiding Method Toilet Toilet # Voids 1 3 - Exam GENERAL DESCRIPTION: Middle-age female lying in bed in no distress RESPIRATORY SYSTEM: Unlabored breathing , decreased breath sounds at bases HEART: S1 S2 regular rate and rhythm , ABDOMEN: Soft , no tenderness EXTREMITIES: No edema feet - Labs CBC & Chem 7: 09/10/23 06:44 09/10/23 06:44 Labs: Abnormal Lab Results - Last 24 Hours (Table) 09/08/23 09/09/23 09/09/23 Range/Units 12:04 06:42 06:42 WBC 1.46 A* (4.50-10.00) X 10*3/uL RBC 2.99 L (4.10-5.20) X 10*6/uL Hgb 9.5 L (12.0-15.0) g/dL Hct 29.6 L (37.2-46.3) % MCV 99.0 H (80.0-97.0) FL RDW 17.0 H (11.5-14.5) % Plt Count 111 L (140-440) X 10*3/uL Lymphocytes # (Manual) 0.85 L (0.90-5.00) X 10*3/uL Monocytes # (Manual) 0.06 L (0.20-1.00) X 10*3/uL Eosinophils # (Manual) 0 L (0.04-0.35) X 10*3/uL Sodium 134 L (135-145) mmol/L BUN 8.8 L (9.0-27.0) mg/dL Uric Acid 2.1 L (3.7-7.4) mg/dL Calcium 8.5 L (8.7-10.3) mg/dL Assessment and Plan (1) UTI (urinary tract infection) Current Visit: Yes Status: Acute Code(s): N39.0 - URINARY TRACT INFECTION, S ITE NOT SPECIFIED SNOMED Code(s): 25537188 (2) Leukopenia Current Visit: Yes Status: Acute Code(s): D72.819 - DECREASED WHITE BLOOD CELL COUNT, UNSPECIFIED SNOMED Code(s): 38015062 (3) Fever Current Visit: Yes Status: Acute Priority: High Code(s): R50.9 - FEVER, UNSPECIFIED SNOMED Code(s): 523195175 Plan: 1patient presented to hospital with generalized bodyaches weakness in this patient who did have a fever positive UA concerning for symptomatic UTI likely from enteric gram-negative pathogen chest x-ray was reported negative for acute infiltrate abdominal soft on clinical examination and no evidence of any joint swelling or cellulitis 2-blood and urine culture have been obtained and are currently pending 3-patient to continue with cefepime while waiting for the culture to finalize Dictation was produced using [employer] dictation software. please excuse any grammatical, word or spelling errors. Time with Patient: Less than 30
--- NOTE | 2023-09-10 14:50 | P.PN ---
Subjective Progress Note Date: 09/10/23 Principal diagnosis: Reason for follow-up is fever and possible UTI Patient is a 57-year-old female with a past medical history significant for stage II breast cancer diagnosed May 2023 for the patient has been on chemotherapy patient presenting to the ER for evaluation of diffuse bodyaches and the patient has been significantly getting weak and unable to eat, patient did have low-grade fever positive UA concerning for symptomatic urinary tract infection. On today's evaluation that is 09/10/2023, the patient remains to be afebrile however still complaining of weakness and chills, patient is currently breathing comfortably on room air, the patient denies chest pain and no significant cough, patient denies abdominal pain, no nausea no vomiting or any diarrhea has been reported. Patient white count is 2.02, creatinine 0.5 cultures so far negative Objective - Vital Signs Vital signs: Vital Signs Temp 98.9 F 09/10/23 12:07 Pulse 91 09/10/23 12:07 Resp 16 09/10/23 12:07 BP 111/72 09/10/23 12:07 Pulse Ox 91 L 09/10/23 12:07 FiO2 Intake & Output 09/09/23 09/10/23 09/10/23 18:59 06:59 18:59 Intake Total 1400 1500 Balance 1400 1500 Intake: Intake, IV Titration 1100 1000 Amount Cefepime 2 gm In Sodium 200 100 Chloride 0.9% 100 ml @ 25 mls/hr IVPB Q8HR [facility] Rx# :[id number] Sodium Chloride 0.9% 1, 900 900 000 ml @ 75 mls/hr IV . [id number] [facility] Rx#:[id number] Oral 300 500 Other: Voiding Method Toilet # Voids 3 - Exam GENERAL DESCRIPTION: Middle-age female lying in bed in no distress RESPIRATORY SYSTEM: Unlabored breathing , decreased breath sounds at bases HEART: S1 S2 regular rate and rhythm , ABDOMEN: Soft , no tenderness EXTREMITIES: No edema feet - Labs CBC & Chem 7: 09/10/23 06:44 09/10/23 06:44 Labs: Abnormal Lab Results - Last 24 Hours (Table) 09/09/23 09/10/23 09/10/23 Range/Units 06:42 06:44 06:44 WBC 2.02 L (4.50-10.00) X 10*3/uL RBC 3.06 L (4.10-5.20) X 10*6/uL Hgb 9.7 L (12.0-15.0) g/dL Hct 30.0 L (37.2-46.3) % MCV 98.0 H (80.0-97.0) FL RDW 16.7 H (11.5-14.5) % Neutrophils # 0.78 L (1.80-7.70) X 10*3/uL Neutrophils # (Manual) 0.51 L (1.80-7.70) X 10*3/uL Lymphocytes # 0.85 L (0.90-5.00) X 10*3/uL Eosinophils # 0 L (0.04-0.35) X 10*3/uL Toxic Granulation 2+ A Potassium 3.1 L (3.5-5.5) mmol/L BUN 6.4 L (9.0-27.0) mg/dL Creatinine 0.5 L (0.6-1.5) mg/dL ALT 58 H (8-44) U/L Total Protein 5.5 L (6.2-8.2) g/dL Albumin 3.7 L (3.8-4.9) g/dL Microbiology - Last 24 Hours (Table) 09/09/23 06:42 Blood Culture - Preliminary Blood 09/08/23 09:23 Blood Culture - Preliminary Blood 09/08/23 12:19 Urine Culture - Final Urine,Voided Assessment and Plan (1) UTI (urinary tract infection) Current Visit: Yes Status: Acute Code(s): N39.0 - URINARY TRACT INFECTION, SITE NOT SPECIFIED SNOMED Code(s): 49544531 (2) Leukopenia Current Visit: Yes Status: Acute Code(s): D72.819 - DECREASED WHITE BLOOD CELL COUNT, UNSPECIFIED SNOMED Code(s): 51990620 (3) Fever Current Visit: Yes Status: Acute Priority: High Code(s): R50.9 - FEVER, UNSPECIFIED SNOMED Code(s): 171449035 Plan: 1patient presented to hospital with generalized bodyaches weakness in this patient who did have a fever positive UA concerning for symptomatic UTI likely from enteric gram-negative pathogen chest x-ray was reported negative for acute infiltrate abdominal soft on clinical examination and no evidence of any joint swelling or cellulitis 2-blood and urine culture have been obtained and are currently pending 3-patient did have resolution of fever and will continue with cefepime and monitor clinical course closely Dictation was produced using [employer] dictation software. please excuse any grammatical, word or spelling errors. Time with Patient: Less than 30
--- NOTE | 2023-09-10 18:47 | P.PN ---
Subjective Progress Note Date: 09/10/23 At today's visit patient is resting comfortably in bed. She is reporting persisting nausea but improvement with compazine. Appetite still diminished but tolerating oral intake. Denies any episodes of vomiting diarrhea. She remains afebrile. Blood and urine culture negative thus far. Improvement in leukocytes, WBC 2.0, ANC 780 Objective - Vital Signs Vital signs: Vital Signs Temp 98.7 F 09/10/23 07:02 Pulse 83 09/10/23 07:02 Resp 16 09/10/23 07:02 BP 133/77 09/10/23 07:02 Pulse Ox 99 09/10/23 07:02 FiO2 Intake & Output 09/09/23 09/10/23 09/10/23 18:59 06:59 18:59 Intake Total 1400 1500 Balance 1400 1500 Intake: Intake, IV Titration 1100 1000 Amount Cefepime 2 gm In Sodium 200 100 Chloride 0.9% 100 ml @ 25 mls/hr IVPB Q8HR [facility] Rx# :[id number] Sodium Chloride 0.9% 1, 900 900 000 ml @ 75 mls/hr IV . [id number] [facility] Rx#:[id number] Oral 300 500 Other: Voiding Method Toilet # Voids 3 - Constitutional General appearance: Present: average body habitus, no acute distress - EENT Eyes: Present: anicteric sclerae, EOMI ENT: Present: hearing grossly normal - Respiratory Details: breathing is even and unlabored - Cardiovascular Details: well perfused - Gastrointestinal General gastrointestinal: Present: soft. Absent: tenderness - Integumentary Integumentary: Absent: cyanotic, jaundiced - Neurologic Neurologic: Present: CNII-XII intact - Musculoskeletal Musculoskeletal: Present: strength equal bilaterally - Psychiatric Psychiatric: Present: A&O x's 3 - Labs CBC & Chem 7: 09/10/23 06:44 09/10/23 06:44 Labs: Abnormal Lab Results - Last 24 Hours (Table) 09/09/23 09/10/23 09/10/23 Range/Units 06:42 06:44 06:44 WBC 2.02 L (4.50-10.00) X 10*3/uL RBC 3.06 L (4.10-5.20) X 10*6/uL Hgb 9.7 L (12.0-15.0) g/dL Hct 30.0 L (37.2-46.3) % MCV 98.0 H (80.0-97.0) FL RDW 16.7 H (11.5-14.5) % Neutrophils # 0.78 L (1.80-7.70) X 10*3/uL Neutrophils # (Manual) 0.51 L (1.80-7.70) X 10*3/uL Lymphocytes # 0.85 L (0.90-5.00) X 10*3/uL Eosinophils # 0 L (0.04-0.35) X 10*3/uL Toxic Granulation 2+ A Potassium 3.1 L (3.5-5.5) mmol/L BUN 6.4 L (9.0-27.0) mg/dL Creatinine 0.5 L (0.6-1.5) mg/dL ALT 58 H (8-44) U/L Total Protein 5.5 L (6.2-8.2) g/dL Albumin 3.7 L (3.8-4.9) g/dL Microbiology - Last 24 Hours (Table) 09/08/23 09:23 Blood Culture - Preliminary Blood 09/08/23 12:19 Urine Culture - Final Urine,Voided Assessment and Plan (1) Adverse effect of chemotherapy Current Visit: Yes Status: Acute Priority: High Code(s): T45.1X5A - ADVERSE EFFECT OF ANTINEOPLASTIC AND IMMUNOSUP DRUGS, INIT SNOMED Code(s): 249329582 (2) Breast cancer, left Current Visit: Yes Status: Acute Priority: High Code(s): C50.912 - MALIGNANT NEOPLASM OF UNSPECIFIED SITE OF LEFT FEMALE BREAST SNOMED Code(s): 489067790 (3) Dehydration Current Visit: Yes Status: Acute Priority: High Code(s): E86.0 - DEHYDRATION SNOMED Code(s): 84307729 (4) Fever Current Visit: Yes Status: Acute Priority: High Code(s): R50.9 - FEVER, UNSPECIFIED SNOMED Code(s): 983041916 Plan: Breast cancer -Neoadjuvant treatment, s/p 5th cycle of TCH-P on 09/03 with G-CSF on 09/04. -Clinic fu scheduled with Dr. Farah on 09/22 prior to proceeding with next cycle -Pt scheduled to complete regimen on 09/24, with plan for evaluation with breast surgeon following completion of treatment Fever: -T max 100.4. Pt now afebrile x 48 hrs. UA suspicious for UTI. Blood and urine culture negative thus far -CXR negative for acute processes -Continues on cefepime. ID folllowing -Leukocytes improving, WBC 2.0, ANC 780. G-CSF given 7 days ago, would expect continued improvement Dehydration: -Decreased oral intake r/t persisting nausea and overall feeling unwell since last treatment -Continue IV hydration and encouraged increasing oral intake as tolerated. Compazine added with improvement in nausea Thrush: -Noted on exam, denies oral pain/irritation. Improving -Nystatin started, however reporting medication is making her nauseous. Recommended to just rinse with medication and not swallow. Salt and soda rinse added
--- NOTE | 2023-09-10 23:33 | PN ---
PROGRESS NOTE DATE OF SERVICE: 09/10/2023 SUBJECTIVE: This 57-year-old woman was admitted with acute neutropenic sepsis, is being closely monitored. No chest pain, no palpitations, no fever. The cultures are negative so far. OBJECTIVE: VITAL SIGNS: Pulse is 91, blood pressure 111/72, respirations 16. CHEST: Clear to auscultation. CARDIOVASCULAR: S1, S2. ABDOMEN: Soft. NERVOUS SYSTEM: No focal deficits. LABS: Labs are reviewed. WBC 2.02, platelets 143, potassium 3.1. ASSESSMENT: 1. Acute neutropenic sepsis present on admission, on empiric antibiotics. Cultures negative so far. 2. Generalized body aches and pains. 3. Possible acute UTI present on admission. 4. Breast cancer, on chemotherapy. 5. History of cholecystectomy. 6. Anxiety, depression. 7. Continued ongoing nicotine dependence. RECOMMENDATIONS: Recommended to continue current management, continue symptomatic treatment. Repeat labs. Continue the antibiotics. Supplement potassium. Further recommendations to follow. MMODL / IJN: [id number] /
[2023-09-11 08:38] LABS: HCT 29.8 % (37.2-46.3); HGB 9.8 g/dL (12.0-15.0); MCH 31.7 pg (27.0-32.0); MCHC 32.9 g/dL (32.0-37.0); MCV 96.4 FL (80.0-97.0); Mean Platelet Volume 11.2 FL (9.5-12.2); NRBC Per 100 WBC 0.03 X 10*3/uL (0.00-0.01); Platelet Count 163 X 10*3/uL (140-440); RBC 3.09 X 10*6/uL (4.10-5.20); RDW 17.2 % (11.5-14.5); WBC 4.11 X 10*3/uL (4.50-10.00)
[2023-09-11 08:57] LABS: Blood Urea Nitrogen 5.2 mg/dL (9.0-27.0); Calcium 8.8 mg/dL (8.7-10.3); Carbon Dioxide 23.1 mmol/L (21.6-31.8); Chloride 102 mmol/L (96-109); Glucose 98 mg/dL (70-110); Magnesium 1.5 mg/dL (1.5-2.4); Potassium 3.5 mmol/L (3.5-5.5); Sodium 136 mmol/L (135-145)
[2023-09-11 09:47] LABS: Basophils # (A) 0.05 X 10*3/uL (0.00-0.10); Basophils % (A) 1.2 %; Eosinophils # (A) 0 X 10*3/uL (0.04-0.35); Eosinophils % (A) 0 %; Lymphocytes # (A) 1.22 X 10*3/uL (0.90-5.00); Lymphocytes % (A) 29.7 %; Monocytes # (A) 0.53 X 10*3/uL (0.20-1.00); Monocytes % (A) 12.9 %; Neutrophils # (A) 2.22 X 10*3/uL (1.80-7.70)
[2023-09-11 09:48] LABS: Toxic Granulation 2+
--- NOTE | 2023-09-11 13:16 | P.PN ---
Subjective Progress Note Date: 09/11/23 Principal diagnosis: Reason for follow-up is fever and possible UTI Patient is a 57-year-old female with a past medical history significant for stage II breast cancer diagnosed May 2023 for the patient has been on chemotherapy patient presenting to the ER for evaluation of diffuse bodyaches and the patient has been significantly getting weak and unable to eat, patient did have low-grade fever positive UA concerning for symptomatic urinary tract infection. On today's evaluation that is 09/11/2023, the patient is afebrile however still complaining of some chills, patient is on room air, the patient denies chest pain shortness of breath or cough, patient denies nausea no vomiting no abdominal pain and no diarrhea, no new symptoms. The patient white count is 4.11, creatinine 0.5 cultures are so far pending Objective - Vital Signs Vital signs: Vital Signs Temp 98.8 F 09/11/23 08:36 Pulse 91 09/11/23 08:36 Resp 16 09/11/23 08:36 BP 134/72 09/11/23 08:36 Pulse Ox 94 L 09/11/23 08:36 FiO2 Intake & Output 09/10/23 09/11/23 09/11/23 18:59 06:59 18:59 Intake Total 500 1500 Balance 500 1500 Intake: Intake, IV Titration 500 1000 Amount Cefepime 2 gm In Sodium 200 100 Chloride 0.9% 100 ml @ 25 mls/hr IVPB Q8HR [facility] Rx# :[id number] Sodium Chloride 0.9% 1, 300 900 000 ml @ 75 mls/hr IV . [id number] [facility] Rx#:[id number] Oral 500 Other: Voiding Method Toilet # Voids 3 - Exam GENERAL DESCRIPTION: Middle-age female lying in bed in no distress RESPIRATORY SYSTEM: Unlabored breathing , decreased breath sounds at bases HEART: S1 S2 regular rate and rhythm , ABDOMEN: Soft , no tenderness EXTREMITIES: No edema feet - Labs CBC & Chem 7: 09/11/23 05:45 09/11/23 05:45 Labs: Abnormal Lab Results - Last 24 Hours (Table) 09/10/23 09/10/23 09/11/23 Range/Units 06:44 06:44 05:45 WBC 2.02 L 4.11 L (4.50-10.00) X 10*3/uL RBC 3.06 L 3.09 L (4.10-5.20) X 10*6/uL Hgb 9.7 L 9.8 L (12.0-15.0) g/dL Hct 30.0 L 29.8 L (37.2-46.3) % MCV 98.0 H (80.0-97.0) FL RDW 16.7 H 17.2 H (11.5-14.5) % Immature Gran # 0.09 H (0.00-0.04) X 10*3/uL Neutrophils # 0.78 L (1.80-7.70) X 10*3/uL Lymphocytes # 0.85 L (0.90-5.00) X 10*3/uL Eosinophils # 0 L 0 L (0.04-0.35) X 10*3/uL NRBC/100 WBC Diff 0.03 H (0.00-0.01) X 10*3/uL Toxic Granulation 2+ A 2+ A Potassium 3.1 L (3.5-5.5) mmol/L BUN 6.4 L (9.0-27.0) mg/dL Creatinine 0.5 L (0.6-1.5) mg/dL BUN/Creatinine Ratio (12.00-20.00) Ratio ALT 58 H (8-44) U/L Total Protein 5.5 L (6.2-8.2) g/dL Albumin 3.7 L (3.8-4.9) g/dL 09/11/23 Range/Units 05:45 WBC (4.50-10.00) X 10*3/uL RBC (4.10-5.20) X 10*6/uL Hgb (12.0-15.0) g/dL Hct (37.2-46.3) % MCV (80.0-97.0) FL RDW (11.5-14.5) % Immature Gran # (0.00-0.04) X 10*3/uL Neutrophils # (1.80-7.70) X 10*3/uL Lymphocytes # (0.90-5.00) X 10*3/uL Eosinophils # (0.04-0.35) X 10*3/uL NRBC/100 WBC Diff (0.00-0.01) X 10*3/uL Toxic Granulation Potassium (3.5-5.5) mmol/L BUN 5.2 L (9.0-27.0) mg/dL Creatinine 0.5 L (0.6-1.5) mg/dL BUN/Creatinine Ratio 10.40 L (12.00-20.00) Ratio ALT (8-44) U/L Total Protein (6.2-8.2) g/dL Albumin (3.8-4.9) g/dL Microbiology - Last 24 Hours (Table) 09/08/23 09:23 Blood Culture - Preliminary Blood 09/09/23 06:42 Blood Culture - Preliminary Blood Assessment and Plan (1) UTI (urinary tract infection) Current Visit: Yes Status: Acute Code(s): N39.0 - URINARY TRACT INFECTION, SITE NOT SPECIFIED SNOMED Code(s): 45163986 (2) Leukopenia Current Visit: Yes Status: Acute Code(s): D72.819 - DECREASED WHITE BLOOD CELL COUNT, UNSPECIFIED SNOMED Code(s): 51137899 (3) Fever Current Visit: Yes Status: Acute Priority: High Code(s): R50.9 - FEVER, UNSPECIFIED SNOMED Code(s): 838078597 Plan: 1patient presented to hospital with generalized bodyaches weakness in this patient who did have a fever positive UA concerning for symptomatic UTI likely from enteric gram-negative pathogen chest x-ray was reported negative for acute infiltrate abdominal soft on clinical examination and no evidence of any joint swelling or cellulitis 2-blood and urine culture have been obtained and are currently pending 3-patient did have resolution of fever and urine culture negative however blood cultures pending, patient will continue with cefepime and monitor clinical course closely Dictation was produced using [employer] dictation software. please excuse any grammatical, word or spelling errors. Time with Patient: Less than 30
--- NOTE | 2023-09-11 19:56 | P.PN ---
Subjective Progress Note Date: 09/11/23 At today's visit patient is resting comfortably in bed. She is reporting improvement in nausea. Denies vomiting and diarrhea. Appetite still diminished but tolerating oral intake. She remains afebrile. Blood and urine culture negative thus far. Improvement in leukocytes, WBC 4.1, ANC 2,200 Objective - Vital Signs Vital signs: Vital Signs Temp 99 F 09/11/23 13:12 Pulse 89 09/11/23 13:12 Resp 17 09/11/23 13:12 BP 136/75 09/11/23 13:12 Pulse Ox 95 09/11/23 13:12 FiO2 Intake & Output 09/10/23 09/11/23 09/11/23 18:59 06:59 18:59 Intake Total 500 1500 Balance 500 1500 Intake: Intake, IV Titration 500 1000 Amount Cefepime 2 gm In Sodium 200 100 Chloride 0.9% 100 ml @ 25 mls/hr IVPB Q8HR [facility] Rx# :[id number] Sodium Chloride 0.9% 1, 300 900 000 ml @ 75 mls/hr IV . [id number] [facility] Rx#:[id number] Oral 500 Other: Voiding Method Toilet # Voids 3 - Constitutional General appearance: Present: average body habitus, no acute distress - EENT Eyes: Present: anicteric sclerae, EOMI ENT: Present: hearing grossly normal - Respiratory Details: breathing is even and unlabored - Cardiovascular Details: well perfused - Gastrointestinal General gastrointestinal: Present: soft. Absent: tenderness - Integumentary Integumentary: Absent: cyanotic, jaundiced - Musculoskeletal Musculoskeletal: Present: generalized weakness, strength equal bilaterally - Psychiatric Psychiatric: Present: A&O x's 3 - Labs CBC & Chem 7: 09/11/23 05:45 09/11/23 05:45 Labs: Abnormal Lab Results - Last 24 Hours (Table) 09/11/23 09/11/23 Range/Units 05:45 05:45 WBC 4.11 L (4.50-10.00) X 10*3/uL RBC 3.09 L (4.10-5.20) X 10*6/uL Hgb 9.8 L (12.0-15.0) g/dL Hct 29.8 L (37.2-46.3) % RDW 17.2 H (11.5-14.5) % Immature Gran # 0.09 H (0.00-0.04) X 10*3/uL Eosinophils # 0 L (0.04-0.35) X 10*3/uL NRBC/100 WBC Diff 0.03 H (0.00-0.01) X 10*3/uL Toxic Granulation 2+ A BUN 5.2 L (9.0-27.0) mg/dL Creatinine 0.5 L (0.6-1.5) mg/dL BUN/Creatinine Ratio 10.40 L (12.00-20.00) Ratio Microbiology - Last 24 Hours (Table) 09/09/23 06:42 Blood Culture - Preliminary Blood 09/08/23 09:23 Blood Culture - Preliminary Blood Assessment and Plan (1) Adverse effect of chemotherapy Current Visit: Yes Status: Acute Priority: High Code(s): T45.1X5A - ADVERSE EFFECT OF ANTINEOPLASTIC AND IMMUNOSUP DRUGS, INIT SNOMED Code(s): 475417836 (2) Breast cancer, left Current Visit: Yes Status: Acute Priority: High Code(s): C50.912 - M ALIGNANT NEOPLASM OF UNSPECIFIED SITE OF LEFT FEMALE BREAST SNOMED Code(s): 357498563 (3) Dehydration Current Visit: Yes Status: Acute Priority: High Code(s): E86.0 - DEHYDRATION SNOMED Code(s): 12703334 (4) Fever Current Visit: Yes Status: Acute Priority: High Code(s): R50.9 - FEVER, UNSPECIFIED SNOMED Code(s): 762235887 Plan: Breast cancer -Neoadjuvant treatment, s/p 5th cycle of TCH-P on 09/03 with G-CSF on 09/04. -Clinic fu scheduled with Dr. Farah on 09/22 prior to proceeding with next cycle -Pt scheduled to complete regimen on 09/24, with plan for evaluation with breast surgeon following completion of treatment Fever: -T max 100.4. Pt now afebrile x 72 hrs. Blood and urine culture negative thus far -CXR negative for acute processes -Continues on cefepime. ID folllowing -Leukocytes now normal, WBC 4.1, ANC 2,200 Dehydration: -Decreased oral intake r/t persisting nausea and overall feeling unwell since last treatment -Continue IV hydration and encouraged increasing oral intake as tolerated. Compazine added with improvement in nausea. Tolerating diet Thrush: -Noted on exam, denies oral pain/irritation -Nystatin started, however reporting medication is making her nauseous. Recommended to just rinse with medication and not swallow. Salt and soda rinse added -Thrush improved *If patient remains afebrile and tolerating oral intake, she is cleared for discharge from oncology standpoint, once cleared by IM and other consulted medical specialities attests: I have seen and examined patient, performed H&P, developed impression and plan of care. Discussed with dictator. Agree with documentation, dictated as a scribe
--- NOTE | 2023-09-11 22:00 | PN ---
PROGRESS NOTE DATE OF SERVICE: 09/11/2023 SUBJECTIVE: This 57-year-old woman was admitted with neutropenic sepsis and breast cancer, on chemotherapy, is being closely monitored. The patient has toxic granulation in the peripheral smear. The patient is on broad-spectrum IV antibiotics. Cultures are negative so far. No chest pain, no palpitation. PHYSICAL EXAMINATION: VITAL SIGNS: Pulse is 93, blood pressure 116/70, respirations 16. CHEST: Clear to auscultation. CARDIOVASCULAR: S1, S2. ABDOMEN: Soft. NERVOUS SYSTEM: No focal deficits. LABORATORY DATA: WBC 4.1, hemoglobin 9.8, rest of the labs are reviewed. ASSESSMENT: 1. Acute neutropenic sepsis, present on admission, on empiric antibiotics. Cultures negative so far. 2. Generalized body aches and pains. 3. Possibly acute UTI present on admission. 4. Breast cancer, on chemotherapy. 5. History of cholecystectomy. 6. Multiple complex medical issues. RECOMMENDATIONS: Recommended to continue current management, continue symptomatic treatment, continue with broad-spectrum IV antibiotics. We will continue to monitor the cultures. I would recommend repeat labs. Closely follow with multiple consultants. The patient is feeling slightly better, but I would recommend at least 48 hours more of antibiotics and follow the cultures. Further recommendations to follow. To complete at least 5- day course of chemotherapy. MMODL / IJN: [id number] /
[2023-09-12 11:38] LABS: HCT 31.8 % (37.2-46.3); MCH 31.8 pg (27.0-32.0); MCHC 31.4 g/dL (32.0-37.0); MCV 101.3 FL (80.0-97.0); Mean Platelet Volume 11.1 FL (9.5-12.2); NRBC Per 100 WBC 0.02 X 10*3/uL (0.00-0.01); Platelet Count 168 X 10*3/uL (140-440); RBC 3.14 X 10*6/uL (4.10-5.20); RDW 17.9 % (11.5-14.5); WBC 7.24 X 10*3/uL (4.50-10.00)
[2023-09-12 11:53] LABS: ALT 40 U/L (8-44); AST 22 U/L (13-35); Albumin 3.7 g/dL (3.8-4.9); Albumin/Globulin Ratio 2.18 Ratio (1.60-3.17); Alkaline Phosphatase 66 U/L (41-126); BUN/Creat Ratio 7.67 Ratio (12.00-20.00); Blood Urea Nitrogen 4.6 mg/dL (9.0-27.0); Calcium 8.8 mg/dL (8.7-10.3); Carbon Dioxide 24.4 mmol/L (21.6-31.8); Chloride 100 mmol/L (96-109); Globulin 1.7 g/dL (1.6-3.3); Glucose 86 mg/dL (70-110); Potassium 3.3 mmol/L (3.5-5.5); Sodium 136 mmol/L (135-145); Total Bilirubin 0.2 mg/dL (0.3-1.2); Total Protein 5.4 g/dL (6.2-8.2)
[2023-09-12 12:07] LABS: Basophils # (A) 0.05 X 10*3/uL (0.00-0.10); Basophils % (A) 0.7 %; Eosinophils # (A) 0 X 10*3/uL (0.04-0.35); Eosinophils % (A) 0 %; Lymphocytes # (A) 1.44 X 10*3/uL (0.90-5.00); Lymphocytes % (A) 19.9 %; Monocytes # (A) 0.61 X 10*3/uL (0.20-1.00); Monocytes % (A) 8.4 %; Neutrophils # (A) 4.99 X 10*3/uL (1.80-7.70); Neutrophils % (A) 68.9 %; RBC Morphology Normal (Normal)
--- NOTE | 2023-09-12 13:05 | P.PN ---
Subjective Progress Note Date: 09/12/23 Principal diagnosis: Reason for follow-up is fever and possible UTI Patient is a 57-year-old female with a past medical history significant for stage II breast cancer diagnosed May 2023 for the patient has been on chemotherapy patient presenting to the ER for evaluation of diffuse bodyaches and the patient has been significantly getting weak and unable to eat, patient did have low-grade fever positive UA concerning for symptomatic urinary tract infection. On today's evaluation that is 09/12/2023, the patient did not have any fever however still complaining of some chills, patient is breathing comfortably on room air, the patient denies chest pain shortness of breath and no significant cough, patient denies abdominal pain, no nausea vomiting or diarrhea.. Patient white count of 7.24, creatinine 0.6 cultures so far negative Objective - Vital Signs Vital signs: Vital Signs Temp 98.7 F 09/12/23 07:12 Pulse 98 09/12/23 07:12 Resp 18 09/12/23 07:12 BP 126/80 09/12/23 07:12 Pulse Ox 98 09/12/23 07:12 FiO2 Intake & Output 09/11/23 09/12/23 09/12/23 18:59 06:59 18:59 Intake Total 450 1500 Balance 450 1500 Intake: Intake, IV Titration 1000 Amount Cefepime 2 gm In Sodium 100 Chloride 0.9% 100 ml @ 25 mls/hr IVPB Q8HR [facility] Rx# :[id number] Sodium Chloride 0.9% 1, 900 000 ml @ 75 mls/hr IV . [id number] [facility] Rx#:[id number] Oral 450 500 Other: Voiding Method Toilet Toilet # Voids 1 3 - Exam GENERAL DESCRIPTION: Middle-age female lying in bed in no distress RESPIRATORY SYSTEM: Unlabored breathing , decreased breath sounds at bases HEART: S1 S2 regular rate and rhythm , ABDOMEN: Soft , no tenderness EXTREMITIES: No edema feet - Labs CBC & Chem 7: 09/12/23 06:09 09/12/23 06:09 Labs: Abnormal Lab Results - Last 24 Hours (Table) 09/12/23 09/12/23 Range/Units 06:09 06:09 RBC 3.14 L (4.10-5.20) X 10*6/uL Hgb 10.0 L (12.0-15.0) g/dL Hct 31.8 L (37.2-46.3) % MCV 101.3 H (80.0-97.0) FL MCHC 31.4 L (32.0-37.0) g/dL RDW 17.9 H (11.5-14.5) % Immature Gran # 0.15 H (0.00-0.04) X 10*3/uL Eosinophils # 0 L (0.04-0.35) X 10*3/uL NRBC/100 WBC Diff 0.02 H (0.00-0.01) X 10*3/uL Potassium 3.3 L (3.5-5.5) mmol/L BUN 4.6 L (9.0-27.0) mg/dL BUN/Creatinine Ratio 7.67 L (12.00-20.00) Ratio Total Bilirubin 0.2 L (0.3-1.2) mg/dL Total Protein 5.4 L (6.2-8.2) g/dL Albumin 3.7 L (3.8-4.9) g/dL Microbiology - Last 24 Hours (Table) 09/09/23 06:42 Blood Culture - Preliminary Blood 09/08/23 09:23 Blood Culture - Preliminary Blood Assessment and Plan (1) UTI (urinary tract infection) Current Visit: Yes Status: Acute Code(s): N39.0 - URINARY TRACT INFECTION, SITE NOT SPECIFIED SNOMED Code(s): 19844449 (2) Leukopenia Current Visit: Yes Status: Acute Code(s): D72.819 - DECREASED WHITE BLOOD CELL COUNT, UNSPECIFIED SNOMED Code(s): 95872240 (3) Fever Current Visit: Yes Status: Acute Priority: High Code(s): R50.9 - FEVER, UNSPECIFIED SNOMED Code(s): 847000834 Plan: 1patient presented to hospital with generalized bodyaches weakness in this patient who did have a fever positive UA concerning for symptomatic UTI likely from enteric gram-negative pathogen chest x-ray was reported negative for acute infiltrate abdominal soft on clinical examination and no evidence of any joint swelling or cellulitis 2-blood and urine culture have been obtained and are currently pending 3-patient did have resolution of fever and improvement her white count currently covered with cefepime however if the culture remains to be negative antibiotics can be safely discontinued Dictation was produced using [employer] software. please excuse any grammatical, word or spelling errors. Time with Patient: Less than 30
[2023-09-12] MEDS ORDERED: Potassium Replacement Protocol 1 EACH MISC MISCELLANE PRN (14:03)
[2023-09-12] MEDS ORDERED: Magnesium Replacement Protocol 1 EACH MISC MISCELLANE PRN (14:03)
--- NOTE | 2023-09-12 15:46 | PN ---
PROGRESS NOTE DATE OF SERVICE: 09/12/2023 SUBJECTIVE: This 57-year-old woman was admitted with acute neutropenic sepsis, is being closely monitored. Cultures are negative. No chest pain. No palpitation. The white count is 7.24. Potassium is 3.3. ASSESSMENT: 1. Acute neutropenic sepsis, present on admission, on empiric antibiotics. Cultures negative so far. 2. Generalized body aches and pains. 3. Possibly acute urinary tract infection, present on admission. 4. Breast cancer, on chemotherapy. 5. History of cholecystectomy. 6. Multiple complex medical issues. RECOMMENDATIONS: I recommend to continue current medications, antibiotic, repeat labs. Otherwise, also recommend replacement protocols. See orders for details. Further recommendations to follow. MMODL / IJN: [id number] /
[2023-09-12] MEDS: POTASSIUM CHLORIDE ER 20 MEQ TAB.ER PO SCH (19:22)
[2023-09-13 09:38] LABS: Basophils # (A) 0.06 X 10*3/uL (0.00-0.10); Basophils % (A) 0.7 %; Eosinophils # (A) 0 X 10*3/uL (0.04-0.35); Eosinophils % (A) 0 %; HCT 32.3 % (37.2-46.3); HGB 10.6 g/dL (12.0-15.0); Lymphocytes % (A) 13.2 %; MCH 32.4 pg (27.0-32.0); MCHC 32.8 g/dL (32.0-37.0); MCV 98.8 FL (80.0-97.0); Mean Platelet Volume 10.2 FL (9.5-12.2); Monocytes # (A) 0.62 X 10*3/uL (0.20-1.00); Monocytes % (A) 6.8 %; NRBC Per 100 WBC 0.03 X 10*3/uL (0.00-0.01); Neutrophils # (A) 7.11 X 10*3/uL (1.80-7.70); Neutrophils % (A) 77.9 %; Platelet Count 186 X 10*3/uL (140-440); RBC 3.27 X 10*6/uL (4.10-5.20); WBC 9.12 X 10*3/uL (4.50-10.00)
[2023-09-13 09:58] LABS: BUN/Creat Ratio 8.83 Ratio (12.00-20.00); Blood Urea Nitrogen 5.3 mg/dL (9.0-27.0); Carbon Dioxide 25.6 mmol/L (21.6-31.8); Chloride 100 mmol/L (96-109); Glucose 109 mg/dL (70-110); Magnesium 1.5 mg/dL (1.5-2.4); Potassium 3.7 mmol/L (3.5-5.5); Sodium 139 mmol/L (135-145)
--- NOTE | 2023-09-13 13:08 | P.PN ---
Subjective Progress Note Date: 09/13/23 Principal diagnosis: Reason for follow-up is fever and possible UTI Patient is a 57-year-old female with a past medical history significant for stage II breast cancer diagnosed May 2023 for the patient has been on chemotherapy patient presenting to the ER for evaluation of diffuse bodyaches and the patient has been significantly getting weak and unable to eat, patient did have low-grade fever positive UA concerning for symptomatic urinary tract infection. On today's evaluation that is 09/13/2023,the patient remains to be afebrile, patient is on room air not requiring supplemental oxygen and denies any shortness of breath no chest pain or cough.Patient denies having any nausea or vomiting, no abdominal pain and no diarrhea has been reported, mention feeling slightly better. Patient white count is 9.12, creatinine 0.6 culture negative so far Objective - Vital Signs Vital signs: Vital Signs Temp 98.8 F 09/13/23 12:49 Pulse 95 09/13/23 12:49 Resp 16 09/13/23 12:49 BP 118/72 09/13/23 12:49 Pulse Ox 93 L 09/13/23 12:49 FiO2 Intake & Output 09/12/23 09/13/23 09/13/23 18:59 06:59 18:59 Intake Total 1500 240 Balance 1500 240 Intake: Intake, IV Titration 1000 Amount Cefepime 2 gm In Sodium 100 Chloride 0.9% 100 ml @ 25 mls/hr IVPB Q8HR [facility] Rx# :[id number] Sodium Chloride 0.9% 1, 900 000 ml @ 75 mls/hr IV . [id number] [facility] Rx#:[id number] Oral 500 240 Other: Voiding Method Toilet Toilet Toilet # Voids 3 3 - Exam GENERAL DESCRIPTION: Middle-age female lying in bed in no distress RESPIRATORY SYSTEM: Unlabored breathing , decreased breath sounds at bases HEART: S1 S2 regular rate and rhythm , ABDOMEN: Soft , no tenderness EXTREMITIES: No edema feet - Labs CBC & Chem 7: 09/13/23 07:08 09/13/23 07:08 Labs: Abnormal Lab Results - Last 24 Hours (Table) 09/13/23 09/13/23 Range/Units 07:08 07:08 RBC 3.27 L (4.10-5.20) X 10*6/uL Hgb 10.6 L (12.0-15.0) g/dL Hct 32.3 L (37.2-46.3) % MCV 98.8 H (80.0-97.0) FL MCH 32.4 H (27.0-32.0) pg RDW 18.0 H (11.5-14.5) % Immature Gran # 0.13 H (0.00-0.04) X 10*3/uL Eosinophils # 0 L (0.04-0.35) X 10*3/uL NRBC/100 WBC Diff 0.03 H (0.00-0.01) X 10*3/uL Anion Gap 13.40 H (4.00-12.00) mmol/L BUN 5.3 L (9.0-27.0) mg/dL BUN/Creatinine Ratio 8.83 L (12.00-20.00) Ratio Microbiology - Last 24 Hours (Table) 09/09/23 06:42 Blood Culture - Preliminary Blood Assessment and Plan (1) UTI (urinary tract infection) Current Visit: Yes Status: Acute Code(s): N39.0 - URINARY TRACT INFECTION, SITE NOT SPECIFIED SNOMED Code(s): 34779081 (2) Leukopenia Current Visit: Yes Status: Acute Code(s): D72.819 - DECREASED WHITE BLOOD CELL COUNT, UNSPECIFIED SNOMED Code(s): 06321866 (3) Fever Current Visit: Yes Status: Acute Priority: High Code(s): R50.9 - FEVER, UNSPECIFIED SNOMED Code(s): 906202750 Plan: 1patient presented to hospital with generalized bodyaches weakness in this patient who did have a fever positive UA concerning for symptomatic UTI likely from enteric gram-negative pathogen chest x-ray was reported negative for acute infiltrate abdominal soft on clinical examination and no evidence of any joint swelling or cellulitis 2-blood and urine culture have been obtained and are so far negative 3-patient did have resolution of fever and improvement her white count c patient to continue with cefepime however if the culture remains to be negative an tibiotics can be safely discontinued Question concern answered Dictation was produced using [employer] dictation software. please excuse any grammatical, word or spelling errors. Time with Patient: Less than 30
--- NOTE | 2023-09-14 00:25 | PN ---
PROGRESS NOTE DATE OF SERVICE: 09/13/2023 SUBJECTIVE: This is a 57-year-old woman, who was admitted with acute neutropenia, sepsis and is being closely monitored. Cultures are negative. No chest pain. No palpitation. PHYSICAL EXAMINATION: VITAL SIGNS: Pulse is 96, blood pressure 113/80, respirations 16. CHEST: Clear. ABDOMEN: Soft. NERVOUS SYSTEM: Nonfocal. LABORATORY DATA: Hemoglobin 10.6, rest of the labs are reviewed. ASSESSMENT: 1. Acute neutropenic sepsis present on admission, on empiric antibiotics. Cultures are negative so far. 2. Generalized body aches and pains. 3. Possible acute urinary tract infection, present on admission. Cultures are negative. 4. Breast cancer, on chemotherapy. 5. History of cholecystectomy. 6. Multiple complex medical issues. Recommended to continue current medications, continue with antibiotics. Recommended to repeat labs tomorrow. Possible discharge in the next 24 hours. MMODL / IJN: [id number] /
[2023-09-14 08:37] LABS: Basophils # (A) 0.05 X 10*3/uL (0.00-0.10); Basophils % (A) 0.4 %; Eosinophils # (A) 0 X 10*3/uL (0.04-0.35); Eosinophils % (A) 0 %; HCT 36.4 % (37.2-46.3); HGB 11.7 g/dL (12.0-15.0); Lymphocytes # (A) 1.66 X 10*3/uL (0.90-5.00); Lymphocytes % (A) 14.9 %; MCH 32.1 pg (27.0-32.0); MCHC 32.1 g/dL (32.0-37.0); MCV 99.7 FL (80.0-97.0); Mean Platelet Volume 10.4 FL (9.5-12.2); Monocytes # (A) 0.61 X 10*3/uL (0.20-1.00); Monocytes % (A) 5.5 %; NRBC Per 100 WBC 0 X 10*3/uL (0.00-0.01); Neutrophils % (A) 78.2 %; Platelet Count 222 X 10*3/uL (140-440); RBC 3.65 X 10*6/uL (4.10-5.20); RDW 18.1 % (11.5-14.5); WBC 11.13 X 10*3/uL (4.50-10.00)
[2023-09-14 08:45] LABS: BUN/Creat Ratio 11.33 Ratio (12.00-20.00); Blood Urea Nitrogen 6.8 mg/dL (9.0-27.0); Calcium 9.2 mg/dL (8.7-10.3); Carbon Dioxide 23.1 mmol/L (21.6-31.8); Chloride 97 mmol/L (96-109); Glucose 117 mg/dL (70-110); Potassium 3.2 mmol/L (3.5-5.5); Sodium 136 mmol/L (135-145)
[2023-09-14] MEDS ORDERED: Potassium Replacement Protocol 1 EACH MISC MISCELLANE PRN (09:15)
[2023-09-14] MEDS: POTASSIUM CHLORIDE ER 20 MEQ TAB.ER PO SCH (10:33)
[2023-09-14 11:34] VITALS: BMI 36.3
--- NOTE | 2023-09-14 11:48 | P.PN ---
Subjective Progress Note Date: 09/14/23 Principal diagnosis: Reason for follow-up is fever and possible UTI Patient is a 57-year-old female with a past medical history significant for stage II breast cancer diagnosed May 2023 for the patient has been on chemotherapy patient presenting to the ER for evaluation of diffuse bodyaches and the patient has been significantly getting weak and unable to eat, patient did have low-grade fever positive UA concerning for symptomatic urinary tract infection. On today's evaluation that is 09/14/2023, the patient continues to be afebrile, the patient is on room air and breathing comfortably, the Pt denies having any chest pain or cough, the patient denies having any abdominal pain no vomiting mention having some diarrhea. Patient white count is 11.13, creatinine 6.8 Objective - Vital Signs Vital signs: Vital Signs Temp 98.3 F 09/14/23 07:49 Pulse 105 H 09/14/23 07:49 Resp 17 09/14/23 07:49 BP 129/79 09/14/23 07:49 Pulse Ox 93 L 09/14/23 07:49 FiO2 Intake & Output 09/13/23 09/14/23 09/14/23 18:59 06:59 18:59 Intake Total 240 Balance 240 Weight 102.058 kg Intake: Oral 240 Other: Voiding Method Toilet Toilet Toilet # Voids 3 3 - Exam GENERAL DESCRIPTION: Middle-age female lying in bed in no distress RESPIRATORY SYSTEM: Unlabored breathing , decreased breath sounds at bases HEART: S1 S2 regular rate and rhythm , ABDOMEN: Soft , no tenderness EXTREMITIES: No edema feet - Labs CBC & Chem 7: 09/14/23 05:27 09/14/23 05:27 Labs: Abnormal Lab Results - Last 24 Hours (Table) 09/14/23 09/14/23 Range/Units 05:27 05:27 WBC 11.13 H (4.50-10.00) X 10*3/uL RBC 3.65 L (4.10-5.20) X 10*6/uL Hgb 11.7 L (12.0-15.0) g/dL Hct 36.4 L (37.2-46.3) % MCV 99.7 H (80.0-97.0) FL MCH 32.1 H (27.0-32.0) pg RDW 18.1 H (11.5-14.5) % Immature Gran # 0.11 H (0.00-0.04) X 10*3/uL Neutrophils # 8.70 H (1.80-7.70) X 10*3/uL Eosinophils # 0 L (0.04-0.35) X 10*3/uL Potassium 3.2 L (3.5-5.5) mmol/L Anion Gap 15.90 H (4.00-12.00) mmol/L BUN 6.8 L (9.0-27.0) mg/dL BUN/Creatinine Ratio 11.33 L (12.00-20.00) Ratio Glucose 117 H (70-110) mg/dL Microbiology - Last 24 Hours (Table) 09/08/23 09:23 Blood Culture - Final Blood Assessment and Plan (1) UTI (urinary tract infection) Current Visit: Yes Status: Acute Code(s): N39.0 - URINARY TRACT INFECTION, SITE NOT SPECIFIED SNOMED Code(s): 82005006 (2) Leukopenia Current Visit: Yes Status: Acute Code(s): D72.819 - DECREASED WHITE BLOOD CELL COUNT, UNSPECIFIED SNOMED Code(s): 72039813 (3) Fever Current Visit: Yes Status: Acute Priority: High Code(s): R50.9 - FEVER, UNSPECIFIED SNOMED Code(s): 633688884 Plan: 1patient presented to hospital with generalized bodyaches weakness in this patient who did have a fever positive UA concerning for symptomatic UTI likely from enteric gram-negative pathogen chest x-ray was reported negative for acute infiltrate abdominal soft on clinical examination and no evidence of any joint swelling or cellulitis 2-blood and urine culture have been obtained and are so far negative 3-patient did have resolution of fever and improvement her white count, white count is slightly up today more likely medication effect no evidence of any infection requiring discontinue cefepime 4diarrhea likely antibiotic associated will improve with escalation of antibiotic patient has been encouraged to increase her probiotic and yogurt intake Dictation was produced using [employer] software. please excuse any grammatical, word or spelling errors. Time with Patient: Less than 30
[2023-09-14 13:05] VITALS: BP 111/75; PULSE 97; RESP 16; TEMP 98.6
--- NOTE | 2023-09-14 13:34 | P.PN ---
Subjective Progress Note Date: 09/14/23 Principal diagnosis: Dehydration, pain from GCSF. Breast cancer, in treatment In f/u today pt reports improvements in thrush, denies fever, dysphagia, cough, abd bloating, she has soft stool but not watery diarrhea, no bleeding to report. The pain in BLE is better since admit. She states that pain meds given here did help. She is ambulatory, no other pain. She has 1 cycle left of chemo. Objective - Vital Signs Vital signs: Vital Signs Temp 98.6 F 09/14/23 11:56 Pulse 97 09/14/23 11:56 Resp 16 09/14/23 11:56 BP 111/75 09/14/23 11:56 Pulse Ox 94 L 09/14/23 11:56 FiO2 Intake & Output 09/13/23 09/14/23 09/14/23 18:59 06:59 18:59 Intake Total 240 Balance 240 Weight 102.058 kg Intake: Oral 240 Other: Voiding Method Toilet Toilet Toilet # Voids 3 3 - Constitutional General appearance: Present: average body habitus, cooperative, no acute distress - EENT Eyes: Present: anicteric sclerae, EOMI ENT: Present: hearing grossly normal, thrush (scant) - Respiratory Respiratory: bilateral: CTA - Cardiovascular Rhythm: regular Heart sounds: normal: S1, S2 Abnormal Heart Sounds: Absent: systolic murmur, diastolic murmur, rub, S3 Gallop, S4 Gallop, click, other - Peripheral edema leg Peripheral Edema: bilateral: Trace - Peripheral pulses dorsalis pedis Peripheral Pulses: bilateral: Normal - Gastrointestinal General gastrointestinal: Present: normal bowel sounds, soft - Integumentary Integumentary: Present: normal - Neurologic Neurologic: Present: CNII-XII intact - Musculoskeletal Musculoskeletal: Present: strength equal bilaterally - Psychiatric Psychiatric: Present: A&O x's 3, appropriate affect, intact judgment & insight - Labs CBC & Chem 7: 09/14/23 05:27 09/14/23 05:27 Labs: Abnormal Lab Results - Last 24 Hours (Table) 09/14/23 09/14/23 Range/Units 05:27 05:27 WBC 11.13 H (4.50-10.00) X 10*3/uL RBC 3.65 L (4.10-5.20) X 10*6/uL Hgb 11.7 L (12.0-15.0) g/dL Hct 36.4 L (37.2-46.3) % MCV 99.7 H (80.0-97.0) FL MCH 32.1 H (27.0-32.0) pg RDW 18.1 H (11.5-14.5) % Immature Gran # 0.11 H (0.00-0.04) X 10*3/uL Neutrophils # 8.70 H (1.80-7.70) X 10*3/uL Eosinophils # 0 L (0.04-0.35) X 10*3/uL Potassium 3.2 L (3.5-5.5) mmol/L Anion Gap 15.90 H (4.00-12.00) mmol/L BUN 6.8 L (9.0-27.0) mg/dL BUN/Creatinine Ratio 11.33 L (12.00-20.00) Ratio Glucose 117 H (70-110) mg/dL Microbiology - Last 24 Hours (Table) 09/09/23 06:42 Blood Culture - Final Blood 09/08/23 09:23 Blood Culture - Final Blood Assessment and Plan (1) Adverse effect of chemotherapy Current Visit: Yes Status: Acute Priority: High Code(s): T45.1X5A - ADVERSE EFFECT OF ANTINEOPLASTIC AND IMMUNOSUP DRUGS, INIT SNOMED Code(s): 000215183 (2) Breast cancer, left Current Visit: Yes Status: Acute Priority: High Code(s): C50.912 - MALIGNANT NEOPLASM OF UNSPECIFIED SITE OF LEFT FEMALE BREAST SNOMED Code(s): 351034246 Plan: Adverse chemo effect -Mostly likely her BLE MS pain was from taxane and GCSF. -She reports that the pain in her legs was terrible, causing her to not eat or drink well, leading to dehydration -She feels better since admit -She does understand the importance of GCSF in her treatment regimen. Plan will be to add pain medication and possibly hydration in office after last cycle to avoid need for hospitalization. She agrees with plan ER/Her2 + left breast cancer -Neoadjuvant treatment, s/p 5/6 planned cycles -Want pt to get through treatment and on to surgery on schedule. -Clinic f/u scheduled with Dr. Farah on 09/22 prior to proceeding with next cycle for evaluation Thrush -Nearly resolved -Ok to continue nystatin suspension -Cont oral hygiene Pancultures are neg
--- NOTE | 2023-09-14 14:27 | P.DS ---
Providers Date of admission: 09/07/23 18:57 Expected date of discharge: 09/14/23 Attending physician: Sharon Garcia Consults: 09/07/23 18:53 Consult Physician Routine Consulting Provider: Gabriel Farah Consult Reason/Comments: Breast cancer Do you want consulting provider notified?: Yes 09/08/23 11:46 Consult Physician Urgent Consulting Provider: Andie Joens Consult Reason/Comments: uti, chemo pt Do you want consulting provider notified?: Yes Primary care physician: Farzaneh Polo Hospital Course: Final diagnosis Acute neutropenic sepsis, present on admission on empiric antibiotics, cultures have been negative thus far Generalized body aches and pains Possible acute urinary tract infection, present on admission, cultures are negative Breast cancer, on chemotherapy History of cholecystectomy Obesity with a BMI of 36.3 History of anxiety/depression Continued ongoing nicotine dependence GI prophylaxis DVT prophylaxis Full code Discharge disposition Patient is being discharged in a stable condition with guarded prognosis to home. Patient will follow-up with Dr. Polo in the outpatient setting upon discharge. Patient is to continue with oral Ceftin twice daily for 3 days and close outpatient follow-up with oncology as scheduled. Recommend repeat labs in the next few days. Total time taken is greater than 35 minutes. Hospital course This is a 57-year-old female who was recently admitted with weakness and dehydration not eating well with leg pain with concerns of acute neutropenia and sepsis being closely monitored. Multiple medical consultations including oncology and infectious disease following maintained on antibiotics. Patient will continue with oral Ceftin twice daily for 3 days to complete the course on discharge. Patient's cultures were all negative. Patient's pain has improved and will follow-up with oncology as scheduled. Patient has been cleared by consultations for discharge home. Patient encouraged to slowly advance diet as tolerated and follow-up with oncology as scheduled. Please refer to other consultation notes for further HPI. Currently no reports of chest pain, shortness of breath, or palpitations. Patient is afebrile. No reports of nausea or vomiting and patient is tolerating diet. Patient will be discharged home today. Guarded prognosis. Physical exam: Gen: This is a 57-year-old female who is awake, alert and oriented x 3, well- developed, well-nourished, obese HEENT: Head is atraumatic, normocephalic. Pupils equal, round. Sclerae is anicteric. NECK: Supple. No JVD. No lymphadenopathy. No thyromegaly. LUNGS: Diminished breath sounds bilaterally otherwise clear to auscultation. No wheezes or rhonchi. No intercostal retractions. HEART: S1, S2 are muffled ABDOMEN: Soft. Obese. Bowel sounds are present. No mases. No tenderness. EXTREMITIES: No pedal edema. No calf tenderness. NEUROLOGICAL: Patient is awake, alert and oriented x3. Cranial nerves 2 through 12 are grossly intact. Please refer to medication reconciliation sheet for a list of medications. The impression and plan of care has been dictated by Nathalie Hayes, Nurse Practitioner as directed. Dr. Jose MD I have performed a history and examination and MDM of this patient, discussed the same with the dictator, and agree with the dictator's assessment and plan as written ,documented as a scribe. Based on total visit time, I have performed more than 50% of the visit. Patient Condition at Discharge: Fair Plan - Discharge Summary New Discharge Prescriptions: New cefUROXime axetiL [Ceftin] 500 mg PO BID 3 Days #6 tab Nystatin 100,000 Unit/ml Susp [Mycostatin Oral Susp] 500,000 unit PO QID 10 Days ml Multivitamins, Thera [Multivitamin (formulary)] 1 each PO DAILY@1200 #30 tab Continue buPROPion XL [Wellbutrin XL] 300 mg PO DAILY Loratadine [Claritin] 10 mg PO DAILY PRN PRN Reason: allergies Famotidine [Pepcid] 40 mg PO DAILY PRN PRN Reason: reflux DULoxetine HCL [Cymbalta] 60 mg PO HS Fluticasone Nasal [place] [Flonase Nasal [place]] 1 spr EA NOSTRIL DAILY PRN PRN Reason: Allergy Symptoms Lidocaine-Prilocaine Cream [Emla Cream 2.5%/2.5%] 1 applic TOPICAL DAILY PRN PRN Reason: port access Prochlorperazine [Compazine] 10 mg PO Q6H PRN PRN Reason: Nausea Loperamide [Imodium] 2 mg PO QID PRN 3 Days #12 cap PRN Reason: Diarrhea Dicyclomine [Bentyl] 10 mg PO QID PRN PRN Reason: Abdominal Distention Naproxen Sodium [Aleve] 220 mg PO BID PRN PRN Reason: Pain HYDROcodone/APAP 5-325MG [[place] 5-325] 1 tab PO Q6HR PRN 3 Days #10 tab PRN Reason: Analgesia Ondansetron [Zofran] 4 mg PO Q6H PRN PRN Reason: Nausea dexAMETHasone [Decadron] 8 mg PO DIRECTED Discharge Medication List DULoxetine HCL [Cymbalta] 60 mg PO HS 05/07/23 [History] Dicyclomine [Bentyl] 10 mg PO QID PRN 05/07/23 [History] Famotidine [Pepcid] 40 mg PO DAILY PRN 05/07/23 [History] Loratadine [Claritin] 10 mg PO DAILY PRN 05/07/23 [History] buPROPion XL [Wellbutrin XL] 300 mg PO DAILY 05/07/23 [History] Naproxen Sodium [Aleve] 220 mg PO BID PRN 06/02/23 [History] HYDROcodone/APAP 5-325MG [[place] 5-325] 1 tab PO Q6HR PRN 3 Days #10 tab 06/04/23 [Rx] Fluticasone Nasal [place] [Flonase Nasal [place]] 1 spr EA NOSTRIL DAILY PRN 06/20/23 [History] Lidocaine-Prilocaine Cream [Emla Cream 2.5%/2.5%] 1 applic TOPICAL DAILY PRN 06/20/23 [History] Ondansetron [Zofran] 4 mg PO Q6H PRN 06/20/23 [History] Prochlorperazine [Compazine] 10 mg PO Q6H PRN 06/20/23 [History] dexAMETHasone [Decadron] 8 mg PO DIRECTED 06/20/23 [History] Loperamide [Imodium] 2 mg PO QID PRN 3 Days #12 cap 06/24/23 [Rx] Multivitamins, Thera [Multivitamin (formulary)] 1 each PO DAILY@1200 #30 tab 09/14/23 [Rx] Nystatin 100,000 Unit/ml Susp [Mycostatin Oral Susp] 500,000 unit PO QID 10 Days ml 09/14/23 [Rx] cefUROXime axetiL [Ceftin] 500 mg PO BID 3 Days #6 tab 09/14/23 [Rx] Follow up Appointment(s)/Referral(s): Farzaneh Polo DO [Primary Care Provider] - 09/17/23 11:00 am Дмитрий Farah MD [STAFF PHYSICIAN] - 09/22/23 8:30 am Ambulatory/Diagnostic Orders: Complete Blood Count w/diff [LAB.AMB] Location: None Selected Patient Instructions/Handouts: Urinary Tract Infection in Women (DC)
== END 2023-09-14 14:35 | disposition home or self-care (01) | DRG 872 ==
LOC: EC 14:10 → 5NMEDONC 18:56 → OBSVTOIN 18:57 → 5NMEDONC 22:43
PROVIDERS: ADMIT Hospitalist; ATTEND Hospitalist
DX: A41.9 Sepsis, unspecified organism (principal); N39.0 Urinary tract infection, site not specified; E86.0 Dehydration; C50.912 Malignant neoplasm of unspecified site of left female breast; B37.9 Candidiasis, unspecified; E66.9 Obesity, unspecified; Z68.36 Body mass index [BMI] 36.0-36.9, adult; D70.8 Other neutropenia; T45.1X5A Adverse effect of antineoplastic and immunosuppressive drugs, initial encounter; F32.A Depression, unspecified; F41.9 Anxiety disorder, unspecified; F17.200 Nicotine dependence, unspecified, uncomplicated; Z79.899 Other long term (current) drug therapy; Z90.49 Acquired absence of other specified parts of digestive tract
CPT/HCPCS: 36415; 71045; 80048; 80053; 81001; 83605; 83735; 84132; 84550; 85025; 87040; 87086; 87636; 96361; 96374; 96375; 96376; 99285

== ENCOUNTER 2023-09-19 10:11 | Emergency (ER) | payer BC, OTHER ==
--- NOTE | 2023-09-19 11:14 | ED ---
General Adult HPI - General Chief complaint: Nausea/Vomiting/Diarrhea Stated complaint: cancer pt-fever Time Seen by Provider: 09/19/23 10:50 Source: patient Mode of arrival: ambulatory Limitations: no limitations - History of Present Illness Initial comments: 57-year-old female with breast cancer undergoing chemotherapy presents to the emergency room for fevers. Patient states that since yesterday she has had fevers. T-max 100.8. She also vomited once and has had diarrhea and body aches. Her last chemo treatment was last and her oncologist is Dr. Farah. Patient has no other complaints at this time including shortness of breath, chest pain, abdominal pain headache, or visual changes. - Related Data Home Medications Medication Instructions Recorded Confirmed DULoxetine HCL [Cymbalta] 60 mg PO HS 05/07/23 09/07/23 Dicyclomine [Bentyl] 10 mg PO QID PRN 05/07/23 09/07/23 Famotidine [Pepcid] 40 mg PO DAILY PRN 05/07/23 09/07/23 Loratadine [Claritin] 10 mg PO DAILY PRN 05/07/23 09/07/23 buPROPion XL [Wellbutrin XL] 300 mg PO DAILY 05/07/23 09/07/23 Naproxen Sodium [Aleve] 220 mg PO BID PRN 06/02/23 09/07/23 Fluticasone Nasal [place] [Flonase 1 spr EA NOSTRIL DAILY PRN 06/20/23 09/07/23 Nasal [place]] Lidocaine-Prilocaine Cream [Emla 1 applic TOPICAL DAILY PRN 06/20/23 09/07/23 Cream 2.5%/2.5%] Ondansetron [Zofran] 4 mg PO Q6H PRN 06/20/23 09/07/23 Prochlorperazine [Compazine] 10 mg PO Q6H PRN 06/20/23 09/07/23 dexAMETHasone [Decadron] 8 mg PO DIRECTED 06/20/23 09/07/23 Previous Rx's Medication Instructions Recorded HYDROcodone/APAP 5-325MG [[place] 1 tab PO Q6HR PRN 3 Days #10 tab 06/04/23 5-325] Loperamide [Imodium] 2 mg PO QID PRN 3 Days #12 cap 06/24/23 Multivitamins, Thera [Multivitamin 1 each PO DAILY@1200 #30 tab 09/14/23 (formulary)] Nystatin 100,000 Unit/ml Susp 500,000 unit PO QID 10 Days ml 09/14/23 [Mycostatin Oral Susp] cefUROXime axetiL [Ceftin] 500 mg PO BID 3 Days #6 tab 09/14/23 Cephalexin [Keflex] 500 mg PO BID 7 Days #14 cap 09/19/23 Allergies Allergy/AdvReac Type Severity Reaction Status Date / Time No Known Allergies Allergy Verified 09/19/23 10:19 Review of Systems ROS Statement: Those systems with pertinent positive or pertinent negative responses have been documented in the HPI. ROS Other: All systems not noted in ROS Statement are negative. Past Medical History Past Medical History: No Reported History, Cancer Additional Past Medical History / Comment(s): ovarian cyst, stage 2 breast cx- may 21 History of Any Multi-Drug Resistant Organisms: None Reported Past Surgical History: Cholecystectomy Additional Past Surgical History / Comment(s): bunionectomy, C4 neck surgery 2020 Past Anesthesia/Blood Transfusion Reactions: Postoperative Nausea & Vomiting (PONV) Additional Past Anesthesia/Blood Transfusion Reaction / Comment(s): PONV after one surgery Past Psychological History: Anxiety, Depression Smoking Status: Current every day smoker Past Alcohol Use History: None Reported Past Drug Use History: None Reported - Past Family History Mother Family Medical History: No Reported History General Exam Limitations: no limitations General appearance: alert, in no apparent distress Head exam: Present: atraumatic Eye exam: Present: normal appearance, PERRL ENT exam: Present: normal exam, normal oropharynx, mucous membranes moist Neck exam: Present: normal inspection, full ROM. Absent: tenderness Respiratory exam: Present: normal lung sounds bilaterally. Absent: respiratory distress, wheezes Cardiovascular Exam: Present: regular rate, normal rhythm, normal heart sounds GI/Abdominal exam: Present: soft, normal bowel sounds. Absent: distended, tenderness Course Vital Signs 09/19/23 09/19/23 09/19/23 10:17 12:00 13:57 Temperature 98.1 F 98.1 F 98.0 F Pulse Rate 108 H 102 H 99 Respiratory 20 16 16 Rate Blood Pressure 128/77 141/83 141/73 O2 Sat by Pulse 99 98 97 Oximetry 09/19/23 15:32 Temperature Pulse Rate 98 Respiratory 18 Rate Blood Pressure 141/73 O2 Sat by Pulse 96 Oximetry Medical Decision Making - Medical Decision Making Was pt. sent in by a medical professional or institution (DON Schrader, PAINTER ASSISTANT, urgent care, hospital, or penitentiary...) When possible be specific @ -No Did you speak to anyone other than the patient for history (EMS, parent, family, police, friend...)? What history was obtained from this source @ -No Did you review nursing and triage notes (agree or disagree)? Why? @ -I reviewed and agree with nursing and triage notes Were old charts reviewed (outside hosp., previous admission, EMS record, old EKG, old radiological studies, urgent care reports/EKG's, penitentiary records)? Report findings @ -Past labs reviewed, stable Differential Diagnosis (chest pain, altered mental status, abdominal pain women, abdominal pain men, vaginal bleeding, weakness, fever, dyspnea, syncope, headache, dizziness, GI bleed, back pain, seizure, CVA, palpatations, mental health)? @ -Differential Fever: Pneumonia, viral URI, endocarditis, myocarditis, pericarditis, otitis, sinusitis, peritonsillar Abscess, retropharyngeal Abscess, epiglottitis, peritonitis, appendicitis, Andria cystitis, diverticulitis, hepatitis, colitis, UTI, PID, TOA, pyelonephritis, prostatitis, epididymitis, meningitis, encephalitis, pulmonary embolism, CVA, thyroid storm, pancreatitis, adrenal crisis, cavernous sinus thrombosis, this is not meant to be an all-inclusive list. EKG interpreted by me (3pts min.). @None done X-rays interpreted by me (1pt min.). @ -Negative CT interpreted by me (1pt min.). @ -None done U/S interpreted by me (1pt. min.). @ -None done What testing was considered but not performed or refused? (CT, X-rays, U/S, labs)? Why? @ -None What meds were considered but not given or refused? Why? @ -None Did you discuss the management of the patient with other professionals (professionals i.e. DON Schrader, PAINTER ASSISTANT, lab, RT, psych nurse, social insurance analyst, buttermaker, teacher, public information officer, case operator)? Give summary @ -Practice practitioner from Dr. Farah's office Was smoking cessation discussed for >3mins.? @ -No Was critical care preformed (if so, how long)? @ -No Were there social determinants of health that impacted care today? How? (Homelessness, low income, unemployed, alcoholism, drug addiction, transportation, low edu. Level, literacy, decrease access to med. care, longterm, rehab)? @ -No Was there de-escalation of care discussed even if they declined (Discuss DNR or withdrawal of care, Hospice)? DNR status @ -No What co-morbidities impacted this encounter? (DM, HTN, Smoking, COPD, CAD, Cancer, CVA, ARF, Chemo, Hep., AIDS, mental health diagnosis, sleep apnea, morbid obesity)? @ -Breast cancer Was patient admitted / discharged? Hospital course, mention meds given and route, prescriptions, significant lab abnormalities, going to OR and other pertinent info. @ -67-year-old female presents to the emergency room and is evaluated at bedside. Patient has breast cancer with last treatment a week and a half ago. Vitals are in the ER and she is afebrile.CBC is unremarkable with a white count of 9.8. CMP did reveal potassium of 2.9, patient was given replacement. Urinal ysis showed 25 white cells. Influenza and COVID-19 are negative. Discussed case with Og Farias from oncology. Recommends outpatient antibiotics, approves Keflex. She will follow up on Thursday at her appointment. She is directed to call their office if she has any fevers. Undiagnosed new problem with uncertain prognosis? @ -No Drug Therapy requiring intensive monitoring for toxicity (Heparin, Nitro, Insulin, Cardizem)? @ -No Were any procedures done? @ -No Diagnosis/symptom? @ -Fever, UTI, chemo patient Acute, or Chronic, or Acute on Chronic? @ -Acute Uncomplicated (without systemic symptoms) or Complicated (systemic symptoms)? @ -Uncomplicated Side effects of treatment? @ -No Exacerbation, Progression, or Severe Exacerbation? @ -No Poses a threat to life or bodily function? How? (Chest pain, [place], CA, pneumonia, PE, COPD, DKA, ARF, appy, cholecystitis, CVA, Diverticulitis, Homicidal, Suicidal, threat to staff... and all critical care pts) @ -No - Lab Data Result diagrams: 09/19/23 11:28 09/19/23 11:28 Lab Results 09/19/23 09/19/23 09/19/23 Range/Units 10:36 11:28 11:28 WBC 9.8 (3.8-10.6) k/uL RBC 3.68 L (3.80-5.40) m/uL Hgb 11.7 (11.4-16.0) gm/dL Hct 36.4 (34.0-46.0) % MCV 99.0 (80.0-100.0) fL MCH 31.8 (25.0-35.0) pg MCHC 32.1 (31.0-37.0) g/dL RDW 17.4 H (11.5-15.5) % Plt Count 169 (150-450) k/uL MPV 7.8 Neutrophils % 83 % Lymphocytes % 12 % Monocytes % 4 % Eosinophils % 0 % Basophils % 0 % Neutrophils # 8.1 H (1.3-7.7) k/uL Lymphocytes # 1.2 (1.0-4.8) k/uL Monocytes # 0.3 (0-1.0) k/uL Eosinophils # 0.0 (0-0.7) k/uL Basophils # 0.0 (0-0.2) k/uL Anisocytosis Slight Macrocytosis Slight PT (10.0-12.5) sec INR (<1.2) APTT (22.0-30.0) sec Sodium 135 L (137-145) mmol/L Potassium 2.9 L (3.5-5.1) mmol/L Chloride 98 (98-107) mmol/L Carbon Dioxide 30 (22-30) mmol/L Anion Gap 7 mmol/L BUN 7 (7-17) mg/dL Creatinine 0.50 L (0.52-1.04) mg/dL Est GFR (CKD-EPI)AfAm >90 (>60 ml/min/1.73 sqM) Est GFR (CKD-EPI)NonAf >90 (>60 ml/min/1.73 sqM) Glucose 130 H (74-99) mg/dL Plasma Lactic Acid Ronal (0.7-2.0) mmol/L Calcium 8.8 (8.4-10.2) mg/dL Total Bilirubin 0.5 (0.2-1.3) mg/dL AST 24 (14-36) U/L ALT 22 (4-34) U/L Alkaline Phosphatase 70 (38-126) U/L Total Protein 6.0 L (6.3-8.2) g/dL Albumin 3.7 (3.5-5.0) g/dL Amylase 42 (30-110) U/L Lipase 67 (23-300) U/L Urine Color Urine Appearance (Clear) Urine pH (5.0-8.0) Ur Specific [place] (1.001-1.035) Urine Protein (Negative) Urine Glucose (UA) (Negative) Urine Ketones (Negative) Urine Blood (Negative) Urine Nitrite (Negative) Urine Bilirubin (Negative) Urine Urobilinogen (<2.0) mg/dL Ur Leukocyte Esterase (Negative) Urine RBC (0-5) /hpf Urine WBC (0-5) /hpf Ur Squamous Epith Cells (0-4) /hpf Urine Mucus (None) /hpf Influenza Type A (PCR) Not Detected (Not Detectd) Influenza Type B (PCR) Not Detected (Not Detectd) RSV (PCR) Not Detected (Not Detectd) SARS-CoV-2 (PCR) Not Detected (Not Detectd) 09/19/23 09/19/23 09/19/23 Range/Units 11:28 11:28 11:28 WBC (3.8-10.6) k/uL RBC (3.80-5.40) m/uL Hgb (11.4-16.0) gm/dL Hct (34.0-46.0) % MCV (80.0-100.0) fL MCH (25.0-35.0) pg MCHC (31.0-37.0) g/dL RDW (11.5-15.5) % Plt Count (150-450) k/uL MPV Neutrophils % % Lymphocytes % % Monocytes % % Eosinophils % % Basophils % % Neutrophils # (1.3-7.7) k/uL Lymphocytes # (1.0-4.8) k/uL Monocytes # (0-1.0) k/uL Eosinophils # (0-0.7) k/uL Basophils # (0-0.2) k/uL Anisocytosis Macrocytosis PT 11.4 (10.0-12.5) sec INR 1.1 (<1.2) APTT 23.7 (22.0-30.0) sec Sodium (137-145) mmol/L Potassium (3.5-5.1) mmol/L Chloride (98-107) mmol/L Carbon Dioxide (22-30) mmol/L Anion Gap mmol/L BUN (7-17) mg/dL Creatinine (0.52-1.04) mg/dL Est GFR (CKD-EPI)AfAm (>60 ml/min/1.73 sqM) Est GFR (CKD-EPI)NonAf (>60 ml/min/1.73 sqM) Glucose (74-99) mg/dL Plasma Lactic Acid Ronal 2.0 (0.7-2.0) mmol/L Calcium (8.4-10.2) mg/dL Total Bilirubin (0.2-1.3) mg/dL AST (14-36) U/L ALT (4-34) U/L Alkaline Phosphatase (38-126) U/L Total Protein (6.3-8.2) g/dL Albumin (3.5-5.0) g/dL Amylase (30-110) U/L Lipase (23-300) U/L Urine Color Yellow Urine Appearance Cloudy H (Clear) Urine pH 6.0 (5.0-8.0) Ur Specific [place] 1.017 (1.001-1.035) Urine Protein Trace H (Negative) Urine Glucose (UA) Negative (Negative) Urine Ketones Negative (Negative) Urine Blood Negative (Negative) Urine Nitrite Negative (Negative) Urine Bilirubin Negative (Negative) Urine Urobilinogen <2.0 (<2.0) mg/dL Ur Leukocyte Esterase Large H (Negative) Urine RBC 4 (0-5) /hpf Urine WBC 25 H (0-5) /hpf Ur Squamous Epith Cells 5 H (0-4) /hpf Urine Mucus Many H (None) /hpf Influenza Type A (PCR) (Not Detectd) Influenza Type B (PCR) (Not Detectd) RSV (PCR) (Not Detectd) SARS-CoV-2 (PCR) (Not Detectd) Disposition Clinical Impression: UTI (urinary tract infection), Fever Disposition: HOME SELF-CARE Condition: Good Instructions (If sedation given, give patient instructions): Fever in Adults (ED) Additional Instructions: Please take antibiotic twice a day as directed (not 4 times a day like is noted on the bottle). Follow-up with your oncologist at your appointment on Thursday. Return to the emergency room for any worsening symptoms. Prescriptions: Cephalexin [Keflex] 500 mg PO BID 7 Days #14 cap Is patient prescribed a controlled substance at d/c from ED?: No Referrals: Farzaneh Rich DO [Primary Care Provider] - 1-2 days Time of Disposition: 16:53
[2023-09-19] MEDS: ACETAMINOPHEN TAB 500 MG TAB PO STA (11:23)
[2023-09-19] MEDS: SODIUM CHLORIDE 0.9% 500 ML 500 ML IV SCH (11:40)
[2023-09-19 12:12] LABS: Anisocytosis Slight; Basophils % (A) 0 %; Eosinophils % (A) 0 %; HCT 36.4 % (34.0-46.0); HGB 11.7 gm/dL (11.4-16.0); Lymphocytes # (A) 1.2 k/uL (1.0-4.8); Lymphocytes % (A) 12 %; MCH 31.8 pg (25.0-35.0); MCHC 32.1 g/dL (31.0-37.0); Macrocytosis Slight; Mean Platelet Volume 7.8; Monocytes # (A) 0.3 k/uL (0-1.0); Monocytes % (A) 4 %; Neutrophils # (A) 8.1 k/uL (1.3-7.7); Neutrophils % (A) 83 %; Platelet Count 169 k/uL (150-450); RBC 3.68 m/uL (3.80-5.40); RDW 17.4 % (11.5-15.5); WBC 9.8 k/uL (3.8-10.6)
[2023-09-19 12:16] LABS: ALT 22 U/L (4-34); AST 24 U/L (14-36); African American GFR (CKD) >90 (>60 ml/min/1.73 sqM); Albumin 3.7 g/dL (3.5-5.0); Alkaline Phosphatase 70 U/L (38-126); Amylase 42 U/L (30-110); Anion Gap 7 mmol/L; Blood Urea Nitrogen 7 mg/dL (7-17); Calcium 8.8 mg/dL (8.4-10.2); Carbon Dioxide 30 mmol/L (22-30); Chloride 98 mmol/L (98-107); Glucose 130 mg/dL (74-99); Lipase 67 U/L (23-300); Non-African American GFR(CKD) >90 (>60 ml/min/1.73 sqM); Potassium 2.9 mmol/L (3.5-5.1); Sodium 135 mmol/L (137-145); Total Bilirubin 0.5 mg/dL (0.2-1.3)
--- NOTE | 2023-09-19 12:17 | XR ---
EXAMINATION TYPE: XR chest 2V DATE OF EXAM: 09/19/2023 12:06 PM CLINICAL INDICATION:Female, 57 years old with history of Fever; [facility] COMPARISON: Chest radiographs from 09/08/2023. TECHNIQUE: XR chest 2V Frontal and lateral views of the chest. FINDINGS: Lungs/Pleura: There is no evidence of pleural effusion, focal consolidation, or pneumothorax. Pulmonary vascularity: Unremarkable. Heart/mediastinum: Cardiomediastinal silhouette is unremarkable. Musculoskeletal: No acute osseous pathology. There is fixation hardware in the lower cervical spine. Other findings: None Lines/Tubes: [id number] projecting over the right hemithorax with distal tip projecting over the superior vena cava. IMPRESSION: No acute cardiopulmonary disease/process.
[2023-09-19 12:23] LABS: INR 1.1 (<1.2); Partial Thromboplastin Time 23.7 sec (22.0-30.0); Prothrombin Time 11.4 sec (10.0-12.5)
[2023-09-19 14:15] VITALS: TEMP 98
[2023-09-19] MEDS: HYDROcodone/APAP 7.5-325MG 1 EACH TAB PO STA (14:16)
[2023-09-19 14:34] LABS: Appearance,Urine Cloudy (Clear); Bilirubin,Urine Negative (Negative); Blood,Urine Negative (Negative); Color,Urine Yellow; Glucose,Urine (UA) Negative (Negative); Ketones,Urine Negative (Negative); Leukocyte Esterase,Urine Large (Negative); Mucus,Urine Many /hpf; Nitrite,Urine Negative (Negative); Protein,Urine Trace (Negative); RBC,Urine 4 /hpf (0-5); Specific Gravity,Urine 1.017 (1.001-1.035); Squamous Epithelial Cell,Urine 5 /hpf (0-4); Urobilinogen,Urine <2.0 mg/dL (<2.0); WBC,Urine 25 /hpf (0-5)
[2023-09-19] MEDS: POTASSIUM CHLORIDE ER 20 MEQ TAB.ER PO STA (15:30)
[2023-09-19 15:37] VITALS: RESP 18
[2023-09-19] MEDS: CEPHALEXIN 500MG STARTER PACK 4 CAP BTL PO STA (17:06)
[2023-09-19] MEDS: cefTRIAXone IN SWFI 1,000 MG/10 ML SYRINGE IVP STA (17:06)
[2023-09-19 17:25] VITALS: BP 137/93; PULSE 100
== END 2023-09-19 17:15 | disposition home or self-care (01) ==
LOC: EC 10:11
DX: N39.0 Urinary tract infection, site not specified (principal); F41.9 Anxiety disorder, unspecified; F32.A Depression, unspecified; F17.200 Nicotine dependence, unspecified, uncomplicated; Z79.899 Other long term (current) drug therapy; Z20.822 Contact with and (suspected) exposure to COVID-19
CPT/HCPCS: 36415; 80053; 82150; 83605; 83690; 85025; 85610; 85730; 81001; 87040; 87086; 87636; 71046; 99285; 96374; 96361; J0696

== ENCOUNTER 2023-10-26 06:02 | Day surgery (SDC) | payer BC, OTHER ==
[2023-10-21 11:38] VITALS: BMI 34.3
[2023-10-26] MEDS: LACTATED RINGERS 1,000 ML IV SCH (06:47)
[2023-10-26] MEDS ORDERED: ALPRAZolam 0.5 MG TAB ONE (06:49)
[2023-10-26] MEDS: ACETAMINOPHEN TAB 500 MG TAB PO PRN (06:50)
[2023-10-26] MEDS: ALPRAZolam 0.5 MG TAB PO ONE (06:51)
[2023-10-26] MEDS: DEXAMETHASONE SOD PHOSPHATE 4 MG/ML 1 ML VIAL IV ONE (06:51)
[2023-10-26] MEDS: ONDANSETRON 4 MG/2 ML VIAL IVP ONE (06:52)
[2023-10-26] MEDS: SCOPOLAMINE 1 MG/72 HR PATCH TRANSDERM ONE (06:52)
[2023-10-26] MEDS ORDERED: POTASSIUM CHLORIDE ER 20 MEQ TAB.ER PO STA (06:57)
[2023-10-26] MEDS ORDERED: MIDAZOLAM 2 MG/2 ML VIAL IV PRN (07:00)
[2023-10-26] MEDS: LIDOCAINE 1% INJ 10MG/ML (20 ML MDV) SQ ONE (08:16)
[2023-10-26] MEDS: HEPARIN SODIUM,PORCINE 5,000 UNIT/ML 1 ML VIAL SQ PRN (09:11)
[2023-10-26 09:38] LABS: ALT 26 U/L (4-34); AST 28 U/L (14-36); African American GFR (CKD) >90 (>60 ml/min/1.73 sqM); Albumin 3.6 g/dL (3.5-5.0); Alkaline Phosphatase 71 U/L (38-126); Anion Gap 4 mmol/L; Blood Urea Nitrogen 12 mg/dL (7-17); Calcium 8.7 mg/dL (8.4-10.2); Carbon Dioxide 23 mmol/L (22-30); Chloride 111 mmol/L (98-107); Glucose 124 mg/dL (74-99); Non-African American GFR(CKD) >90 (>60 ml/min/1.73 sqM); Potassium 4.1 mmol/L (3.5-5.1); Sodium 138 mmol/L (137-145); Total Bilirubin 0.2 mg/dL (0.2-1.3); Total Protein 6.2 g/dL (6.3-8.2)
[2023-10-26] MEDS ORDERED: LIDOCAINE 1% INJ 10MG/ML (20 ML MDV) ONE (09:50)
[2023-10-26] MEDS ORDERED: fentaNYL (PF) 50 MCG/ML 2 ML AMP ONE (09:50)
[2023-10-26] MEDS ORDERED: PROPOFOL 10 MG/ML 20 ML VIAL IV ONE (09:50)
[2023-10-26] MEDS ORDERED: HYDROmorphone (PF) 1 MG/ML ONE (09:50)
--- NOTE | 2023-10-26 09:50 | P.NAPBC ---
NAPBC Queries - NAPBC Queries Was patient's case review presented at [facility] tumor board? If no, comment.: Yes Was patient's pathology reviewed at [facility]? If no, comment.: Yes Was breast conservation surgery offered? If no, comment.: Yes Was sentinel node biopsy offered? If no, comment.: Yes Was diagnosis confirmed by percutaneous core biopsy? If no, comment.: Yes Is patient mastectomy patient?: No Was a preop referral to reconstructive surgeon offered?: Yes Clinical Stage: 2
[2023-10-26] MEDS: LACTATED RINGERS 1,000 ML IV ONE (10:35)
[2023-10-26] MEDS: BUPIVACAINE (PF) 0.25% 30 ML VIAL SQ ONE (10:36)
--- NOTE | 2023-10-26 11:16 | NM ---
EXAMINATION TYPE: NM sentinel node injection DATE OF EXAM: 10/26/2023 COMPARISON: NONE INDICATION: Abnormal mammogram. Informed consent was obtained. A timeout was performed. The area around the left nipple was cleansed with alcohol. In a single dose, a total of 480 uCi Lynne hnetium 99m Tilmanocept was injected. The patient tolerated the procedure very well. IMPRESSION: 1. Successful injection for sentinel node evaluation.
[2023-10-26] MEDS ORDERED: NALOXONE 0.4 MG/ML 1 ML VIAL IV PRN (11:51)
[2023-10-26] MEDS ORDERED: HYDROmorphone 1 MG/ML 1 ML SYRINGE IVP PRN (11:51)
[2023-10-26] MEDS ORDERED: HYDROcodone/APAP 5-325MG 1 EACH TAB PO PRN (11:51)
[2023-10-26] MEDS ORDERED: ACETAMINOPHEN TAB 325 MG TAB PO PRN (11:51)
--- NOTE | 2023-10-26 11:59 | P.OP ---
Date of Procedure: 10/26/23 Procedure(s) Performed: PREOPERATIVE DIAGNOSIS: Left breast cancer, left breast fibroadenoma POSTOPERATIVE DIAGNOSIS: Same PROCEDURE: Left breast wire localization lumpectomy 2 sites with sentinel lymph node biopsy SURGEON: Christiano EBL: Minimal ANESTHESIA: General COMPLICATIONS: None OPERATIVE PROCEDURE: Patient was placed on the operating room table in the supine position. 2 mL of methylene blue was injected into the subareolar space. The breast was then massaged for 5 minutes. The breast was prepped and draped in usual sterile fashion. The left axilla was addressed at that time. The hot spot in the left axilla was identified. A small curvilinear incision was made using the scalpel. Dissection down through the subcutaneous tissues took place using electrocautery. Using the neoprobe I identified a total of 3 sentinel lymph nodes. 2 of these were blue in color. These had benign exam rock cteristics. An additional lymphatic channel was excised as well. These were all removed and sent to pathology for permanent sectioning. The surgical site was inspected and no bleeding was seen. The subcutaneous tissues were closed using 3-0 Vicryl sutures. The skin was closed using 4-0 Monocryl sutures. The wire entrance sites were then addressed. These were both present in the upper outer quadrant. 1 was directed superiorly to the the known malignancy. The other was directed medially towards 3:00 where the fibroadenoma was present. An incision was made in a curvilinear fashion between the 2 wire entrance site following Langerhans lines. I subcutaneous with a dissected until we reached the superior wire. The breast tissue was dissected for short distance and then the lumpectomy began around the wire. As we were dissecting our superior margin was noted to represent the inferior aspect of our axillary incision site. The specimen was inspected. Given the proximity to the superior sentinel lymph node dissection site I decided to take a new superior margin. Anteriorly there was some induration present which may have represented scarring from recent neoadjuvant therapy and a new anterior margin was also taken. Both anterior and superior new margins were painted the appropriate color on the new margin side. The original lumpectomy was painted the appropriate 6 colors. We now had a fairly large area of dissection. Small vessels and lymphatics were clipped. I also placed a few clips at the lumpectomy site. Surgicel powder was used in the axilla. I decided to leave a drain given the large space present here. The drain was placed and brought out inferiorly. This was sutured to the skin using a 3-0 silk stitch. The lumpectomy and axillary cavities were reapproximated using interrupted 2-0 Vicryl sutures. I then dissected in the subcutaneous tissues anteriorly and inferiorly until we encountered the fibroadenoma wire. The wire was followed into the breast tissue. A lumpectomy then took place around the wire and the palpable fibroadenoma. This was sent to pathology. No specimen radiograph took place here. Subcutaneous tissues there were also cl osed using 3-0 Vicryl sutures. Skin at both incision sites closed using 4-0 Monocryl subcuticular sutures. Skin glue was then applied. DISPOSITION: Stable to recovery room
[2023-10-26 12:12] VITALS: TEMP 97
[2023-10-26] MEDS: HYDROmorphone 0.5 MG/0.5 ML SYRINGE IVP ONE ×2 (12:18→12:32)
[2023-10-26] MEDS: KETOROLAC 15 MG/ML 1 ML VIAL IVP ONE (12:18)
[2023-10-26 12:47] VITALS: RESP 16
[2023-10-26] MEDS: HYDROmorphone 0.5 MG/0.5 ML SYRINGE IVP PRN (12:55)
[2023-10-26 13:58] VITALS: BP 114/72; PULSE 89
--- NOTE | 2023-11-05 10:40 | MM ---
Pathology Description: Approach: Lateral to Medial Needle Type: 9 cm Kopan Pathology Description: Approach: Lateral to Medial Needle Type: 7 cm Kopan The needle localization procedure with wire placement for surgical excision was explained to the patient. Benefits, alternatives, and risks were discussed. An informed consent was then obtained. A timeout was performed. The overlying skin was prepped in usual sterile fashion. Lidocaine was used as anesthetic into the skin and subcutaneous tissue up to the level of area of concern. A 9 cm needle was used. It was placed using a lateral approach under mammographic guidance. Subsequent 90 degrees mammogram show the needle to be in satisfactory position relative to the targeted area of the wing clip 2:00 position upper outer posterior quadrant. The wire was placed and the needle was withdrawn. The wire was fixed to patient's skin. This lesion the patient's known neoplasm. The overlying skin was prepped in usual sterile fashion. Lidocaine was used as anesthetic into the skin and subcutaneous tissue up to the level of area of concern. A 7 cm needle was used. It was placed using a lateral approach under mammographic guidance. Subsequent 90 degrees mammogram show the needle to be in satisfactory position relative to the targeted area of the coil marker at 3:00 lateral position upper outer mid quadrant. The wire was placed and the needle was withdrawn. The wire was fixed to patient's skin. This lesion the patient's known fibroadenoma. Images are reviewed and the case discussed with the referring surgeon in person prior surgery. The patient tolerated the procedure well without any immediate complication. The patient was kept in the radiology department for short stay after the procedure and then taken to surgery for surgical excision. Specimen: Winged clip Biopsy marker and wire are identified in specimen mammogram correlating with the region of the patient's neoplasm. The second specimen was not radiographed. Impression: 1. Successful needle localization with wire placement and surgical excision of 2 biopsy markers at the region of interest left breast. Recommendations: 1. Recommendations are pending pathology results. Pathology Results: Result: Benign, Fibroadenoma. Pathology and radiology were reviewed. Findings are concordant. A. LEFT ANXILLARY SENTINEL LYMPH NODES: Three lymph nodes negative for metastasis. CK7 immunostain performed on block A1, EMIGDIO immunostain performed on block A2, and CKAE1/3 immunostain performed on block A3 are confirmatory (controls appropriate). B. LEFT BREAST, LUMPECTOTMY: Fibrosis/scar with histiocytes, chronic inflammation, cholesterol clefts and foreign body multinucleated giant cell reaction consistent with neoadjuvant chemotherapy treatment related changes. No residual invasive malignancy is identified. Benign intramammary lymph node. See Surgical Pathology Cancer Case Summary. C. SPECIMEN SUBMITTED FIBROADENOMA, EXCISION: Fibroadenoma/fibroadenomatoid hyperplasia with background fibrocystic changes and previous biopsy site. D. LEFT BREAST, NEW ANTERIOR MARGIN, EXCISION: Benign breast with fibrocystic changes. E. LEFT BREAST, NEW SUPERIOR MARGIN, EXCISION: Benign fibroadipose tissue and a benign lymph node. Overall Assessment: Benign Management: Diagnostic Mammogram of the left breast in 6 months. Electronically signed and approved by: Ronnie Santiago D.O. Radiologis
== END 2023-10-26 14:31 | disposition home or self-care (01) ==
LOC: OR 06:02
PROVIDERS: ATTEND Surgery
DX: D24.2 Benign neoplasm of left breast (principal); N60.12 Diffuse cystic mastopathy of left breast
CPT/HCPCS: 88305; 80053; 88342; 88307; 88341; 76098; 19281; 19282; 38792; 19301; 38525; C1819 ×2; A9520; J1644; J1100; J0690; J2405; J2001; J3010; J1170 ×2; J1885; J2704; J0665

== ENCOUNTER 2024-01-24 11:13 | Emergency (ER) | payer BC, OTHER ==
[2024-01-24 11:19] VITALS: RESP 18
--- NOTE | 2024-01-24 11:37 | ED ---
General Adult HPI - General Chief complaint: Nausea/Vomiting/Diarrhea Stated complaint: Vomiting, diarrhea, loss of appetite Time Seen by Provider: 01/24/24 11:21 Source: patient, RN notes reviewed Mode of arrival: ambulatory Limitations: no limitations - History of Present Illness Initial comments: Patient is a pleasant 58-year-old female presenting to the emergency department with nausea and vomiting and diarrhea. Onset of symptoms was 2 to 3 days ago. No fever. Patient is on immunotherapy for breast cancer. Patient finished chemotherapy a couple of months ago. Patient just finished radiation a week ago. No significant abdominal pain. Decreased oral intake. Patient is vomiting 2-3 times per day, diarrhea 3-4 times per day. - Related Data Home Medications Medication Instructions Recorded Confirmed DULoxetine HCL [Cymbalta] 60 mg PO HS 05/07/23 10/26/23 Dicyclomine [Bentyl] 10 mg PO QID PRN 05/07/23 10/26/23 Famotidine [Pepcid] 40 mg PO DAILY PRN 05/07/23 10/26/23 Loratadine [Claritin] 10 mg PO DAILY PRN 05/07/23 10/26/23 buPROPion XL [Wellbutrin XL] 300 mg PO DAILY 05/07/23 10/26/23 Fluticasone Nasal [place] [Flonase 1 spr EA NOSTRIL DAILY PRN 06/20/23 10/26/23 Nasal [place]] Lidocaine-Prilocaine Cream [Emla 1 applic TOPICAL DAILY PRN 06/20/23 10/26/23 Cream 2.5%/2.5%] Ondansetron [Zofran] 4 mg PO Q6H PRN 06/20/23 10/26/23 Prochlorperazine [Compazine] 10 mg PO Q6H PRN 06/20/23 10/26/23 Previous Rx's Medication Instructions Recorded HYDROcodone/APAP 5-325MG [[place] 1 tab PO Q6HR PRN 3 Days #10 tab 06/04/23 5-325] Allergies Allergy/AdvReac Type Severity Reaction Status Date / Time No Known Allergies Allergy Verified 01/24/24 11:19 Review of Systems ROS Statement: Those systems with pertinent positive or pertinent negative responses have been documented in the HPI. ROS Other: All systems not noted in ROS Statement are negative. Constitutional: Denies: fever Eyes: Denies: eye pain ENT: Denies: ear pain Respiratory: Denies: dyspnea Cardiovascular: Denies: chest pain Gastrointestinal: Reports: as per HPI, nausea, vomiting, diarrhea Past Medical History Past Medical History: Cancer, Fibromyalgia Additional Past Medical History / Comment(s): ovarian cyst, stage 2 breast cx- may 21, neuropathy in both lower extremities. History of Any Multi-Drug Resistant Organisms: None Reported Past Surgical History: Cholecystectomy Additional Past Surgical History / Comment(s): bunionectomy, C4 neck surgery 2020, [place], carpel tunnel L hand. Past Anesthesia/Blood Transfusion Reactions: Postoperative Nausea & Vomiting (PONV) Additional Past Anesthesia/Blood Transfusion Reaction / Comment(s): PONV after one surgery Past Psychological History: Anxiety, Depression Smoking Status: Current every day smoker Past Alcohol Use History: None Reported Past Drug Use History: None Reported - Past Family History Mother Family Medical History: No Reported History General Exam Limitations: no limitations General appearance: alert, in no apparent distress Head exam: Present: normocephalic Eye exam: Present: normal appearance Neck exam: Present: normal inspection Respiratory exam: Present: normal lung sounds bilaterally Cardiovascular Exam: Present: regular rate, normal rhythm Expanded Peripheral pulses: 2+: Dorsalis Pedis (R), Dorsalis Pedis (L) GI/Abdominal exam: Present: soft. Absent: distended, tenderness Extremities exam: Present: normal inspection. Absent: pedal edema, calf tenderness Neurological exam: Present: alert Psychiatric exam: Present: normal affect, normal mood Skin exam: Present: normal color Course Vital Signs 01/24/24 11:15 Temperature 98.1 F Pulse Rate 100 Respiratory 18 Rate Blood Pressure 117/80 O2 Sat by Pulse 97 Oximetry Medical Decision Making - Medical Decision Making Was pt. sent in by a medical professional or institution (, PA, CHILD CARE SUPERVISOR, urgent care, hospital, or retirement...) When possible be specific @ -No Did you speak to anyone other than the patient for history (EMS, parent, family, police, friend...)? What history was obtained from this source @ -No Did you review nursing and triage notes (agree or disagree)? Why? @ -I reviewed and agree with nursing and triage notes Were old charts reviewed (outside hosp., previous admission, EMS record, old EKG, old radiological studies, urgent care reports/EKG's, retirement records)? Report findings @ -No old charts were reviewed Differential Diagnosis (chest pain, altered mental status, abdominal pain women, abdominal pain men, vaginal bleeding, weakness, fever, dyspnea, syncope, headache, dizziness, GI bleed, back pain, seizure, CVA, palpatations, mental health, musculoskeletal)? @ -Differential Abdominal Pain Women: Appendicitis, Cholecystitis, diverticulosis, ischemic bowel, pancreatitis, hepatitis, UTI, gastroenteritis, AAA, incarcerated hernia, bowel obstruction, constipation, inflammatory bowel, hepatitis, peptic ulcer disease, splenic infarction, perforated viscus, vulvitis, ovarian torsion, PID, kidney stone, placenta abruption, this is not meant to be an all-inclusive list EKG interpreted by me (3pts min.). @ -As above X-rays interpreted by me (1pt min.). @ -None done CT interpreted by me (1pt min.). @ -None done U/S interpreted by me (1pt. min.). @ -None done What testing was considered but not performed or refused? (CT, X-rays, U/S, labs)? Why? @ -None What meds were considered but not given or refused? Why? @ -None Did you discuss the management of the patient with other professionals (professionals i.e. , PA, CHILD CARE SUPERVISOR, lab, RT, psych nurse, elementary school social worker, diabetes clinical manager, teacher, senior officer, caser)? Give summary @ -No Was smoking cessation discussed for >3mins.? @ -No Was critical care preformed (if so, how long)? @ -No Were there social determinants of health that impacted care today? How? (Homelessness, low income, unemployed, alcoholism, drug addiction, transportation, low edu. Level, literacy, decrease access to med. care, [place] [facility], rehab)? @ -No Was there de-escalation of care discussed even if they declined (Discuss DNR or withdrawal of care, Hospice)? DNR status @ -No What co-morbidities impacted this encounter? (DM, HTN, Smoking, COPD, CAD, Cancer, CVA, ARF, Chemo, Hep., AIDS, mental health diagnosis, sleep apnea, morbid obesity)? @ -On immunotherapy with underlying history of breast cancer Was patient admitted / discharged? Hospital course, mention meds given and route, prescriptions, significant lab abnormalities, going to OR and other pertinent info. @ -Patient reevaluated after meds and fluids. Patient feeling much better and requesting discharge home. Patient states she does have medications at home. Patient will be discharged for follow-up Undiagnosed new problem with uncertain prognosis? @ -No Drug Therapy requiring intensive monitoring for toxicity (Heparin, Nitro, Insulin, Cardizem)? @ -No Were any procedures done? @ -No Diagnosis/symptom? @ -Vomiting, diarrhea Acute, or Chronic, or Acute on Chronic? @ -Acute, acute Uncomplicated (without systemic symptoms) or Complicated (systemic symptoms)? @ -Default Side effects of treatment? @ -No Exacerbation, Progression, or Severe Exacerbation? @ -No Poses a threat to life or bodily function? How? (Chest pain, [place], [place], pneumonia, PE, COPD, DKA, ARF, appy, cholecystitis, CVA, Diverticulitis, Homicidal, [place] icidal, threat to staff... and all critical care pts) @ -No - Lab Data Result diagrams: 01/24/24 11:59 01/24/24 11:59 Lab Results 01/24/24 01/24/24 Range/Units 11:59 11:59 WBC 3.0 L (3.8-10.6) k/uL RBC 4.79 (3.80-5.40) m/uL Hgb 14.3 (11.4-16.0) gm/dL Hct 45.6 (34.0-46.0) % MCV 95.2 (80.0-100.0) fL MCH 29.9 (25.0-35.0) pg MCHC 31.4 (31.0-37.0) g/dL RDW 13.8 (11.5-15.5) % Plt Count 181 (150-450) k/uL MPV 7.8 Neutrophils % 79 % Lymphocytes % 13 % Monocytes % 6 % Eosinophils % 1 % Basophils % 0 % Neutrophils # 2.3 (1.3-7.7) k/uL Lymphocytes # 0.4 L (1.0-4.8) k/uL Monocytes # 0.2 (0-1.0) k/uL Eosinophils # 0.0 (0-0.7) k/uL Basophils # 0.0 (0-0.2) k/uL Sodium 136 L (137-145) mmol/L Potassium 4.0 (3.5-5.1) mmol/L Chloride 106 (98-107) mmol/L Carbon Dioxide 23 (22-30) mmol/L Anion Gap 7 mmol/L BUN 16 (7-17) mg/dL Creatinine 0.78 (0.52-1.04) mg/dL Est GFR (CKD-EPI)AfAm >90 (>60 ml/min/1.73 sqM) Est GFR (CKD-EPI)NonAf 86 (>60 ml/min/1.73 sqM) Glucose 96 (74-99) mg/dL Calcium 9.4 (8.4-10.2) mg/dL Total Bilirubin 0.5 (0.2-1.3) mg/dL AST 31 (14-36) U/L ALT 26 (4-34) U/L Alkaline Phosphatase 90 (38-126) U/L Total Protein 6.6 (6.3-8.2) g/dL Albumin 4.2 (3.5-5.0) g/dL Amylase 45 (30-110) U/L Lipase 45 (23-300) U/L Disposition Clinical Impression: Diarrhea, Vomiting Disposition: HOME SELF-CARE Condition: Stable Instructions (If sedation given, give patient instructions): Acute Nausea and Vomiting (ED), Acute Diarrhea (ED) Additional Instructions: Please do follow-up with your primary care physician and oncologist this week. Return for not tolerating fluids, fever, pain, worsening or changing symptoms or other concerns Is patient prescribed a controlled substance at d/c from ED?: No Referrals: Farzaneh Rich DO [Primary Care Provider] - 1-2 days Time of Disposition: 12:45
[2024-01-24] MEDS: SODIUM CHLORIDE 0.9% 1,000 ML IV STA (12:00)
[2024-01-24] MEDS: ONDANSETRON 4 MG/2 ML VIAL IVP STA (12:02)
[2024-01-24] MEDS: FAMOTIDINE 20 MG/2 ML VIAL IV STA (12:05)
[2024-01-24] MEDS: DICYCLOMINE 10 MG/ML 2 ML AMP IM STA (12:07)
[2024-01-24 12:23] LABS: Basophils % (A) 0 %; Eosinophils % (A) 1 %; HCT 45.6 % (34.0-46.0); HGB 14.3 gm/dL (11.4-16.0); Lymphocytes # (A) 0.4 k/uL (1.0-4.8); Lymphocytes % (A) 13 %; MCH 29.9 pg (25.0-35.0); MCHC 31.4 g/dL (31.0-37.0); MCV 95.2 fL (80.0-100.0); Mean Platelet Volume 7.8; Monocytes # (A) 0.2 k/uL (0-1.0); Monocytes % (A) 6 %; Neutrophils # (A) 2.3 k/uL (1.3-7.7); Neutrophils % (A) 79 %; Platelet Count 181 k/uL (150-450); RBC 4.79 m/uL (3.80-5.40); RDW 13.8 % (11.5-15.5)
[2024-01-24 12:37] LABS: ALT 26 U/L (4-34); AST 31 U/L (14-36); African American GFR (CKD) >90 (>60 ml/min/1.73 sqM); Albumin 4.2 g/dL (3.5-5.0); Alkaline Phosphatase 90 U/L (38-126); Amylase 45 U/L (30-110); Anion Gap 7 mmol/L; Blood Urea Nitrogen 16 mg/dL (7-17); Calcium 9.4 mg/dL (8.4-10.2); Carbon Dioxide 23 mmol/L (22-30); Chloride 106 mmol/L (98-107); Glucose 96 mg/dL (74-99); Lipase 45 U/L (23-300); Non-African American GFR(CKD) 86 (>60 ml/min/1.73 sqM); Sodium 136 mmol/L (137-145); Total Bilirubin 0.5 mg/dL (0.2-1.3); Total Protein 6.6 g/dL (6.3-8.2)
[2024-01-24 13:33] VITALS: BP 125/81; PULSE 86; TEMP 97.9
== END 2024-01-24 13:38 | disposition home or self-care (01) ==
LOC: EC 11:13
DX: R11.2 Nausea with vomiting, unspecified (principal); R19.7 Diarrhea, unspecified; F17.200 Nicotine dependence, unspecified, uncomplicated; Z85.3 Personal history of malignant neoplasm of breast
CPT/HCPCS: 36415; 80053; 82150; 83690; 85025; 99284; 96374; 96375; 96372; 96361; J0500; J2405; J3490

== ENCOUNTER → 2024-03-01 | Outpatient (CLI) | payer BC, OTHER ==
--- NOTE | 2024-03-01 15:17 | CA ---
Transthoracic Echo Report Name: Ibeth Menchaca Age: 58 Gender: F : 1965 Exam Date: 03/01/2024 11:06 Exam Location: [facility] Ht (in): 66 Wt (lb): 200 Ordering Physician: Дмитрий Farah MD Attending/Referring Phys: Manufacturers Service Representative Carmela Fox RDCS Procedure CPT: Indications: C50.412 breast ca Cardiac Hx: Technical Quality: Fair Contrast 1: Total Dose (mL): Contrast 2: Total Dose (mL): MEASUREMENTS (Male / Female) Normal Values 2D ECHO LV Diastolic Diameter PLAX 3.4 cm 4.2 - 5.9 / 3.9 - 5.3 cm LV Systolic Diameter PLAX 2.4 cm IVS Diastolic Thickness 1.2 cm 0.6 - 1.0 / 0.6 - 0.9 cm LVPW Diastolic Thickness 1.2 cm 0.6 - 1.0 / 0.6 - 0.9 cm LV Relative Wall Thickness 0.7 RV Internal Dim ED PLAX 2.7 cm LA Volume 43.0 cm??? 18 - 58 / 22 - 52 cm??? LA Volume Index 20.6 cm???/m??? 16 - 28 cm???/m??? M-MODE Aortic Root Diameter MM 2.8 cm LA Systolic Diameter MM 3.0 cm LA Ao Ratio MM 1.1 AV Cusp Separation MM 1.7 cm DOPPLER AV Peak Velocity 145.6 cm/s AV Peak Gradient 8.5 mmHg AV Mean Velocity 104.7 cm/s AV Mean Gradient 4.9 mmHg AV Velocity Time Integral 28.7 cm AI Peak Velocity 184.0 cm/s AI Peak Gradient 13.5 mmHg AI Pressure Half Time 377.2 ms LVOT Peak Velocity 107.8 cm/s LVOT Peak Gradient 4.6 mmHg LVOT Velocity Time Integral 21.1 cm MV Area PHT 4.0 cm??? Mitral E Point Velocity 80.7 cm/s Mitral A Point Velocity 52.3 cm/s Mitral E to A Ratio 1.5 MV Deceleration Time 188.5 ms MV E' Velocity 6.0 cm/s Mitral E to MV E' Ratio 13.4 TR Peak Velocity 166.2 cm/s TR Peak Gradient 11.0 mmHg Right Ventricular Systolic Press 16.0 mmHg FINDINGS Left Ventricle Mildly increased left ventricular wall thickness. Left ventricular cavity size normal. Normal left ventricular systolic function with no obvious regional wall motion abnormalities. Left ventricular ejection fraction is estimated at 55-60 %. Right Ventricle Normal right ventricular size and function. Right ventricular systolic pressure within normal limits. Right Atrium Normal right atrial size. Left Atrium Normal left atrial size. Mitral Valve Structurally normal mitral valve. Mild mitral annular calcification. Mild mitral regurgitation. Aortic Valve Trileaflet aortic valve. No aortic stenosis. Trace aortic regurgitation. Tricuspid Valve Structurally normal tricuspid valve. Mild tricuspid regurgitation. Pulmonic Valve Structurally normal pulmonic valve. Trace pulmonic regurgitation. Pericardium No pericardial effusion. Aorta Normal size aortic root and proximal ascending aorta. CONCLUSIONS Diagnosis breast cancer awaiting chemotherapy. Baseline LV function assessment Normal LV systolic function ejection fraction 55% Prominent pericardial stripe Previewed by: Dr. Wolf Villasenor MD (Electronically Signed) Final Date: 01 March 2024 15:16
== END | disposition home or self-care (01) ==
LOC: RADECHMAIN 10:56
PROVIDERS: ATTEND Internal Medicine Hematology & Oncology
DX: Z01.818 Encounter for other preprocedural examination (principal); C50.412 Malignant neoplasm of upper-outer quadrant of left female breast; K58.9 Irritable bowel syndrome, unspecified; B96.81 Helicobacter pylori [H. pylori] as the cause of diseases classified elsewhere; Z71.3 Dietary counseling and surveillance
CPT/HCPCS: 93306

== ENCOUNTER 2024-03-23 12:21 | Emergency (ER) | payer OTHER ==
[2024-03-23] MEDS ORDERED: ASPIRIN 81 MG ONE (14:03)
[2024-03-23] MEDS ORDERED: KETOROLAC 15 MG/ML 1 ML VIAL ONE (14:04)
[2024-03-23] MEDS ORDERED: SODIUM CHLORIDE 0.9% 500 ML BAG ONE (14:14)
--- NOTE | 2024-04-12 13:04 | CT ---
Ibeth Menchaca ID: [id number] : 1965 EXAMINATION TYPE: CT angio chest DATE OF EXAM: 03/23/2024 COMPARISON: Radiograph 03/23/2024 HISTORY: 58-year-old female chest pain and right leg pain TECHNIQUE: Contiguous axial scanning of the chest after the administration of 100 mL of Isovue 370. Coronal/sagittal MIP reconstructions performed. CT DLP: 355.4 mGycm. Automatic exposure control utilized for a dose reduction. FINDINGS: Right anterior chest wall injection port with catheter tip at the cavoatrial junction. Asymmetric skin and trabecular thickening of the left breast. Surgical clips at the left axilla. Quer y postsurgical/posttreatment change. The heart is normal size without pericardial effusion. No flattening of the interventricular septum o r reflux of contrast into the hepatic veins Aorta normal caliber with conventional arch vessel branching anatomy. Borderline and mildly enlarged bilateral hilar lymph nodes are present measuring up to 1.3 cm. Additi onal bilateral bronchial lymph nodes measure up to 8 mm. Satisfactory opacification of the pulmonary arterial system without evidence for pulmonary embolus. Mild diffuse bronchial wall thickening. Mild dependent atelectasis. Mild emphysematous change. No con solidation or pleural effusion. Visualized upper abdomen shows a 1.7 cm central hepatic cyst. Bones: Mild degenerative disc disease throughout the thoracic spine. IMPRESSION: 1. No evidence for pulmonary embolus. 2. COPD with mild emphysema. 3. Borderline and mildly enlarged hilar lymph nodes measuring up to 1.3 cm probably reactive/post inf lammatory. Consider 3 month follow-up CT chest to ensure stability/resolution. 4. Right-sided chest wall injection port. There is also asymmetric skin and trabecular thickening of the left breast suggesting radiation therapy change. Correlate with oncologic history.
--- NOTE | 2024-04-19 10:47 | XR ---
EXAMINATION TYPE: XR chest 1V DATE OF EXAM: 03/23/2024 HISTORY: Shortness of breath. COMPARISON: None. TECHNIQUE: Single view of the chest is submitted. FINDINGS: Demonstrated are scattered senescent parenchymal change. There is no evidence for focal infiltrate. The heart is stable. Hilar and mediastinal structures are within normal limits. Degenerative changes are seen of the dorsal spine. IMPRESSION: 1. Chronic changes without evidence for acute pulmonary disease.
--- NOTE | 2024-04-20 15:18 | US ---
Patient: Ibeth Menchaca Ordering Physician: Unknown, Unknown ID: [id number] Phone, Pager: Phone: N/A Isidoro eddie: N/A : 1965 Age/Gender: 58Y, F Primary Location: N/A Procedure: US venous doppler duplex LE BI Study Date: 03/23/2024 2:19:00 PM EXAMINATION TYPE: US venous doppler duplex LE BI DATE OF EXAM: 03/23/2024 3:04 PM COMPARISON: NONE CLINICAL INDICATION: Unknown, old with history of ; SIDE PERFORMED: TECHNIQUE: The lower extremity deep venous system is examined utilizing real time linear array sonog bethany with graded compression, doppler sonography and color-flow sonography. VESSELS IMAGED: Common Femoral Vein Deep Femoral Vein Greater Saphenous Vein * Femoral Vein Popliteal Vein Small Saphenous Vein * Proximal Calf Veins (* superficial vessels) No evidence for DVT seen in either leg. IMPRESSION: Grayscale, color doppler, spectral doppler imaging performed of the deep veins of the lo wer extremities. There is normal flow, compressibility, vascular waveforms.
== END 2024-03-23 15:20 | disposition home or self-care (01) ==
LOC: EC 12:21
DX: R07.89 Other chest pain (principal)
CPT/HCPCS: 71045; 71275; 93005; 93970; 96361; 96374; 99285

== ENCOUNTER 2024-03-28 16:59 | Emergency (ER) | payer OTHER ==
[2024-03-28 17:48] VITALS: TEMP 98.3
--- NOTE | 2024-03-28 17:56 | ED ---
General Adult HPI - General Chief complaint: Chest Pain Stated complaint: Chest/Breast Pain Time Seen by Provider: 03/28/24 17:14 Source: patient, RN notes reviewed, old records reviewed Mode of arrival: ambulatory Limitations: no limitations - History of Present Illness Initial comments: 58-year-old female presenting with chest pain. Patient reports pain in the left side of her chest which is predominantly in her left breast and armpit. No associated nausea or vomiting. No central chest pain. No dyspnea. Patient has history of breast cancer status posttreatment and resection. - Related Data Home Medications Medication Instructions Recorded Confirmed DULoxetine HCL [Cymbalta] 60 mg PO HS 05/07/23 03/28/24 Dicyclomine [Bentyl] 10 mg PO QID PRN 05/07/23 03/28/24 Famotidine [Pepcid] 40 mg PO DAILY PRN 05/07/23 03/28/24 Loratadine [Claritin] 10 mg PO DAILY PRN 05/07/23 03/28/24 buPROPion XL [Wellbutrin XL] 300 mg PO DAILY 05/07/23 03/28/24 Lidocaine-Prilocaine Cream [Emla 1 applic TOPICAL DAILY PRN 06/20/23 03/28/24 Cream 2.5%/2.5%] Ondansetron [Zofran] 4 - 8 mg PO Q4H PRN 06/20/23 03/28/24 Prochlorperazine [Compazine] 10 mg PO Q6H PRN 06/20/23 03/28/24 Calcium Carbonate/Vitamin D3 1 tab PO DAILY 03/28/24 03/28/24 [Calcium 600-Vit D3 10 mcg (400 Iu)] Cephalexin [Keflex] 500 mg PO BID 03/28/24 03/28/24 HYDROcodone/APAP 5-325MG [[place] 1 tab PO TID PRN 03/28/24 03/28/24 5-325] Letrozole [Femara] 2.5 mg PO DAILY 03/28/24 03/28/24 Pegfilgrastim [Neulasta] 6 mg SQ Q21D 03/28/24 03/28/24 Pregabalin [Lyrica] 100 mg PO BID PRN 03/28/24 03/28/24 Pregabalin [Lyrica] 100 mg PO DAILY@1100 03/28/24 03/28/24 Pregabalin [Lyrica] 150 mg PO HS 03/28/24 03/28/24 Allergies Allergy/AdvReac Type Severity Reaction Status Date / Time No Known Allergies Allergy Verified 03/28/24 18:42 Review of Systems ROS Statement: Those systems with pertinent positive or pertinent negative responses have been documented in the HPI. ROS Other: All systems not noted in ROS Statement are negative. Past Medical History Past Medical History: Cancer, Fibromyalgia Additional Past Medical History / Comment(s): ovarian cyst, stage 2 breast cx- may 21, neuropathy in both lower extremities. History of Any Multi-Drug Resistant Organisms: None Reported Past Surgical History: Cholecystectomy Additional Past Surgical History / Comment(s): bunionectomy, C4 neck surgery 2020, [place], carpel tunnel L hand. left breast lumpectomy Past Anesthesia/Blood Transfusion Reactions: Postoperative Nausea & Vomiting ( PONV) Additional Past Anesthesia/Blood Transfusion Reaction / Comment(s): PONV after one surgery Past Psychological History: Anxiety, Depression Smoking Status: Current every day smoker Past Alcohol Use History: None Reported Past Drug Use History: None Reported - Past Family History Mother Family Medical History: No Reported History General Exam Limitations: no limitations General appearance: alert, in no apparent distress Head exam: Present: atraumatic, normocephalic Eye exam: Present: normal appearance, PERRL ENT exam: Present: normal exam Neck exam: Present: normal inspection. Absent: tenderness, meningismus Respiratory exam: Present: normal lung sounds bilaterally. Absent: respiratory distress, wheezes Cardiovascular Exam: Present: regular rate, normal rhythm GI/Abdominal exam: Present: soft. Absent: distended, tenderness Neurological exam: Present: alert, oriented X3 Psychiatric exam: Present: normal affect, normal mood Skin exam: Present: warm, dry, other (TTP of the left breast, no skin changes, no induration, no palpable mass.) Course Vital Signs 03/28/24 03/28/24 17:03 17:37 Temperature 98.0 F 98.3 F Pulse Rate 85 77 Respiratory 18 14 Rate Blood Pressure 148/94 133/88 O2 Sat by Pulse 99 97 Oximetry Medical Decision Making - Medical Decision Making Was pt. sent in by a medical professional or institution (, PA, OVERNIGHT BABYSITTER, urgent care, hospital, or [facility]...) When possible be specific @ -No Did you speak to anyone other than the patient for history (EMS, parent, family, police, friend...)? What history was obtained from this source @ -No Did you review nursing and triage notes (agree or disagree)? Why? @ -I reviewed and agree with nursing and triage notes Were old charts reviewed (outside hosp., previous admission, EMS record, old E KG, old radiological studies, urgent care reports/EKG's, [facility] records)? Report findings @ -No old charts were reviewed Differential Chest Pain: Stable Angina, Unstable Angina, STEMI, NSTEMI Aortic Dissection, Pneumothorax, Musculoskeletal, Esophageal Spasm GERD, Cholecystitis, Pancreatitis, Zoster, this is not meant to be an all-inclusive list. EKG interpreted by me (3pts min.). @EKG: Sinus rhythm, rate of 76, TN interval 169, QRS duration 111, QTc 411 X-rays interpreted by me (1pt min.). @ -Chest x-ray is negative for acute cardiopulmonary findings. CT interpreted by me (1pt min.). @ -None done U/S interpreted by me (1pt. min.). @US of the left breast, and left adnexa are negative for organizing fluid collection or acute findings. What testing was considered but not performed or refused? (CT, X-rays, U/S, labs)? Why? @ -None What meds were considered but not given or refused? Why? @ -None Did you discuss the management of the patient with other professionals (professionals i.e. , PA, OVERNIGHT BABYSITTER, lab, RT, psych nurse, executive secretary social welfare, poultry picker, teacher, college service officer, field case manager)? Give summary @ -No Was smoking cessation discussed for >3mins.? @ -No Was critical care preformed (if so, how long)? @ -No Were there social determinants of health that impacted care today? How? (Homelessness, low income, unemployed, alcoholism, drug addiction, transportation, low edu. Level, literacy, decrease access to med. care, correction, rehab)? @ -No Was there de-escalation of care discussed even if they declined (Discuss DNR or withdrawal of care, Hospice)? DNR status @ -No What co-morbidities impacted this encounter? (DM, HTN, Smoking, COPD, CAD, Cancer, CVA, ARF, Chemo, Hep., AIDS, mental health diagnosis, sleep apnea, morbid obesity)? @ Breast Cancer Was patient admitted / discharged? Hospital course, mention meds given and route, prescriptions, significant lab abnormalities, going to OR and other pertinent info. @ -[58-year-old female presenting with pain in the left breast, history of breast cancer. Patient is going through radiation, chemotherapy after initial lumpectomy. Patient does not have any skin changes on exam. No induration or fluctuance. I did perform ultrasound in the emergency room which was negative. In addition EKG and laboratory testing was obtained which was unremarkable. I do recommend the patient should follow-up with her surgeon regarding this pain. Undiagnosed new problem with uncertain prognosis? @ -No Drug Therapy requiring intensive monitoring for toxicity (Heparin, Nitro, Insulin, Cardizem)? @ -No Were any procedures done? @ -No Diagnosis/symptom? @ -Breast pain Acute, or Chronic, or Acute on Chronic? @ -[acute Uncomplicated (without systemic symptoms) or Complicated (systemic symptoms)? @ -Default Side effects of treatment? @ -No Exacerbation, Progression, or Severe Exacerbation? @ -No Poses a threat to life or bodily function? How? (Chest pain, USA, LA, pneumonia, PE, COPD, DKA, ARF, appy, cholecystitis, CVA, Diverticulitis, Homicidal, Suicidal, threat to staff... and all critical care pts) @ -No - Lab Data Result diagrams: 03/28/24 17:45 03/28/24 17:45 Lab Results 03/28/24 03/28/24 03/28/24 Range/Units 17:45 17:45 17:45 WBC 4.7 (3.8-10.6) k/uL RBC 4.20 (3.80-5.40) m/uL Hgb 13.4 (11.4-16.0) gm/dL Hct 39.6 (34.0-46.0) % MCV 94.3 (80.0-100.0) fL MCH 31.8 (25.0-35.0) pg MCHC 33.7 (31.0-37.0) g/dL RDW 13.8 (11.5-15.5) % Plt Count 219 (150-450) k/uL MPV 7.7 Neutrophils % 72 % Lymphocytes % 22 % Monocytes % 4 % Eosinophils % 1 % Basophils % 1 % Neutrophils # 3.4 (1.3-7.7) k/uL Lymphocytes # 1.0 (1.0-4.8) k/uL Monocytes # 0.2 (0-1.0) k/uL Eosinophils # 0.0 (0-0.7) k/uL Basophils # 0.0 (0-0.2) k/uL PT 10.3 (10.0-12.5) sec INR 0.9 (<1.2) APTT 24.4 (22.0-30.0) sec Sodium 133 L (137-145) mmol/L Potassium 3.7 (3.5-5.1) mmol/L Chloride 106 (98-107) mmol/L Carbon Dioxide 27 (22-30) mmol/L Anion Gap 0 mmol/L BUN 14 (7-17) mg/dL Creatinine 0.74 (0.52-1.04) mg/dL Est GFR (CKD-EPI)AfAm >90 (>60 ml/min/1.73 sqM) Est GFR (CKD-EPI)NonAf >90 (>60 ml/min/1.73 sqM) Glucose 96 (74-99) mg/dL Calcium 9.6 (8.4-10.2) mg/dL Magnesium 1.9 (1.6-2.3) mg/dL Total Bilirubin 0.5 (0.2-1.3) mg/dL AST 27 (14-36) U/L ALT 20 (4-34) U/L Alkaline Phosphatase 80 (38-126) U/L Troponin I (0.000-0.034) ng/mL Total Protein 6.8 (6.3-8.2) g/dL Albumin 4.3 (3.5-5.0) g/dL 03/28/24 Range/Units 17:45 WBC (3.8-10.6) k/uL RBC (3.80-5.40) m/uL Hgb (11.4-16.0) gm/dL Hct (34.0-46.0) % MCV (80.0-100.0) fL MCH (25.0-35.0) pg MCHC (31.0-37.0) g/dL RDW (11.5-15.5) % Plt Count (150-450) k/uL MPV Neutrophils % % Lymphocytes % % Monocytes % % Eosinophils % % Basophils % % Neutrophils # (1.3-7.7) k/uL Lymphocytes # (1.0-4.8) k/uL Monocytes # (0-1.0) k/uL Eosinophils # (0-0.7) k/uL Basophils # (0-0.2) k/uL PT (10.0-12.5) sec INR (<1.2) APTT (22.0-30.0) sec Sodium (137-145) mmol/L Potassium (3.5-5.1) mmol/L Chloride (98-107) mmol/L Carbon Dioxide (22-30) mmol/L Anion Gap mmol/L BUN (7-17) mg/dL Creatinine (0.52-1.04) mg/dL Est GFR (CKD-EPI)AfAm (>60 ml/min/1.73 sqM) Est GFR (CKD-EPI)NonAf (>60 ml/min/1.73 sqM) Glucose (74-99) mg/dL Calcium (8.4-10.2) mg/dL Magnesium (1.6-2.3) mg/dL Total Bilirubin (0.2-1.3) mg/dL AST (14-36) U/L ALT (4-34) U/L Alkaline Phosphatase (38-126) U/L Troponin I <0.012 (0.000-0.034) ng/mL Total Protein (6.3-8.2) g/dL Albumin (3.5-5.0) g/dL Disposition Clinical Impression: Breast pain, left Disposition: HOME SELF-CARE Condition: Fair Instructions (If sedation given, give patient instructions): Chest Pain (ED) Is patient prescribed a controlled substance at d/c from ED?: No Referrals: Farzaneh Rich DO [Primary Care Provider] - 1-2 days Time of Disposition: 20:27
[2024-03-28] MEDS: HYDROmorphone 0.5 MG/0.5 ML SYRINGE IVP STA (17:57)
[2024-03-28 18:09] LABS: Basophils % (A) 1 %; Eosinophils % (A) 1 %; HCT 39.6 % (34.0-46.0); HGB 13.4 gm/dL (11.4-16.0); Lymphocytes % (A) 22 %; MCH 31.8 pg (25.0-35.0); MCHC 33.7 g/dL (31.0-37.0); MCV 94.3 fL (80.0-100.0); Mean Platelet Volume 7.7; Monocytes # (A) 0.2 k/uL (0-1.0); Monocytes % (A) 4 %; Neutrophils # (A) 3.4 k/uL (1.3-7.7); Neutrophils % (A) 72 %; Platelet Count 219 k/uL (150-450); RDW 13.8 % (11.5-15.5); WBC 4.7 k/uL (3.8-10.6)
[2024-03-28 18:18] LABS: ALT 20 U/L (4-34); AST 27 U/L (14-36); African American GFR (CKD) >90 (>60 ml/min/1.73 sqM); Albumin 4.3 g/dL (3.5-5.0); Alkaline Phosphatase 80 U/L (38-126); Anion Gap 0 mmol/L; Blood Urea Nitrogen 14 mg/dL (7-17); Calcium 9.6 mg/dL (8.4-10.2); Carbon Dioxide 27 mmol/L (22-30); Chloride 106 mmol/L (98-107); Glucose 96 mg/dL (74-99); INR 0.9 (<1.2); Magnesium 1.9 mg/dL (1.6-2.3); Non-African American GFR(CKD) >90 (>60 ml/min/1.73 sqM); Partial Thromboplastin Time 24.4 sec (22.0-30.0); Potassium 3.7 mmol/L (3.5-5.1); Prothrombin Time 10.3 sec (10.0-12.5); Sodium 133 mmol/L (137-145); Total Bilirubin 0.5 mg/dL (0.2-1.3); Total Protein 6.8 g/dL (6.3-8.2)
--- NOTE | 2024-03-28 20:17 | US ---
EXAMINATION TYPE: US axilla LT DATE OF EXAM: 03/28/2024 COMPARISON: 05/07/2023 CLINICAL INDICATION: Female, 58 years old with history of pain; Patient states breast swelling and pa in, hx of cancer. lumpectomy october TECHNIQUE: Scanned left axilla FINDINGS: No abnormalities visualized with ultrasound today IMPRESSION: No suspicious masses or organizing fluid collections.
--- NOTE | 2024-03-28 20:19 | XR ---
EXAMINATION TYPE: XR chest 2V DATE OF EXAM: 03/28/2024 7:15 PM CLINICAL INDICATION: Female, 58 years old with history of Chest Pain; [facility] COMPARISON: Chest radiographs from 09/19/2023 TECHNIQUE: XR chest 2V Frontal view of the chest. FINDINGS: Lungs/Pleura: There is no evidence of pleural effusion, focal consolidation, or pneumothorax. Pulmonary vascularity: Unremarkable. Heart/mediastinum: Cardiomediastinal silhouette is unremarkable. Musculoskeletal: No acute osseous pathology. There is fixation hardware in the lower cervical spine. Other findings: None Lines/Tubes: IMPRESSION: No acute cardiopulmonary disease/process.
[2024-03-28 21:01] VITALS: BP 137/85; PULSE 76; RESP 18
--- NOTE | 2024-03-29 14:54 | USB ---
Reason for Exam: Clinical finding. Patient History: Menarche at age 17. First Full-Term at age 27. Postmenopausal. Breast cancer, left, age 57. 10/26/2023, MG pre op loc each addl LT on the Left side. 10/26/2023, Benign MG pre op needle loc LT on the left side. 05/13/2023, US biopsy breast add'l VAD LT on the Left side. 05/13/2023, Malignant US biopsy breast VAD LT on the left side. Prior Study Comparison: 02/08/2020 Bilateral Diagnostic Mammogram, [facility]. 05/07/2023 Bilateral MG 3D diag mammo w/cad RADHA, [facility]. 05/13/2023 Left MG diagnostic mammo LT wo CAD., [facility]. Findings: A complete US of all four quadrants of the breast and retro-areolar region were reviewed. No solid or cystic masses are identified as best seen today. Possible prominent ducts seen retroareolar. Overall Assessment: Probably benign, BI-RAD 3 Management: Diagnostic Mammogram of the left breast. A clinical breast exam by your physician is recommended on an annual basis and results should be correlated with mammographic findings. This exam should not preclude additional follow-up of suspicious palpable abnormalities. Results were given to the patient verbally at the time of exam. Electronically signed and approved by: Zoran Conley DO
== END 2024-03-28 21:01 | disposition home or self-care (01) ==
LOC: EC 16:59
DX: N64.4 Mastodynia (principal); Z85.3 Personal history of malignant neoplasm of breast; F17.200 Nicotine dependence, unspecified, uncomplicated
CPT/HCPCS: 36415; 93005; 80053; 83735; 84484; 85025; 85610; 85730; 71046; 76642; 76882; 99285; 96374; J1170

== ENCOUNTER 2024-04-19 13:38 | Emergency (ER) | payer BC, OTHER ==
[2024-04-19 13:41] VITALS: RESP 18
[2024-04-19] MEDS: GABAPENTIN 300 MG CAP PO STA (14:26)
[2024-04-19] MEDS: MORPHINE SULFATE 2 MG/ML SYRINGE IM STA (14:26)
--- NOTE | 2024-04-19 14:26 | ED ---
Extremity Problem HPI - General Chief complaint: Extremity Problem,Nontraumatic Stated complaint: arm pain Time Seen by Provider: 04/19/24 13:58 Source: patient, RN notes reviewed Mode of arrival: ambulatory Limitations: no limitations - History of Present Illness Initial comments: 58-year-old female with history of neuropathy and fibromyalgia presenting with left arm pain x 3 days. Describes a shooting pain from her left shoulder radiating into the left sided chest and down the left arm with numbness, tingling, and weakness that is worse with movement. States this feels similar to previous episodes of neuropathy. States she was doing some housework the day before symptoms began. She takes Lyrica and [place] for symptoms, however did not take any of these medications today. She had a lumpectomy in October and has had ongoing left-sided chest wall fibromyalgia and left arm neuropathy since then. She follows closely with oncology. - Related Data Home Medications Medication Instructions Recorded Confirmed DULoxetine HCL [Cymbalta] 60 mg PO HS 05/07/23 03/28/24 Dicyclomine [Bentyl] 10 mg PO QID PRN 05/07/23 03/28/24 Famotidine [Pepcid] 40 mg PO DAILY PRN 05/07/23 03/28/24 Loratadine [Claritin] 10 mg PO DAILY PRN 05/07/23 03/28/24 buPROPion XL [Wellbutrin XL] 300 mg PO DAILY 05/07/23 03/28/24 Lidocaine-Prilocaine Cream [Emla 1 applic TOPICAL DAILY PRN 06/20/23 03/28/24 Cream 2.5%/2.5%] Ondansetron [Zofran] 4 - 8 mg PO Q4H PRN 06/20/23 03/28/24 Prochlorperazine [Compazine] 10 mg PO Q6H PRN 06/20/23 03/28/24 Calcium Carbonate/Vitamin D3 1 tab PO DAILY 03/28/24 03/28/24 [Calcium 600-Vit D3 10 mcg (400 Iu)] Cephalexin [Keflex] 500 mg PO BID 03/28/24 03/28/24 HYDROcodone/APAP 5-325MG [[place] 1 tab PO TID PRN 03/28/24 03/28/24 5-325] Letrozole [Femara] 2.5 mg PO DAILY 03/28/24 03/28/24 Pegfilgrastim [Neulasta] 6 mg SQ Q21D 03/28/24 03/28/24 Pregabalin [Lyrica] 100 mg PO BID PRN 03/28/24 03/28/24 Pregabalin [Lyrica] 100 mg PO DAILY@1100 03/28/24 03/28/24 Pregabalin [Lyrica] 150 mg PO HS 03/28/24 03/28/24 Allergies Allergy/AdvReac Type Severity Reaction Status Date / Time No Known Allergies Allergy Verified 04/19/24 13:42 Review of Systems ROS Statement: Those systems with pertinent positive or pertinent negative responses have been documented in the HPI. ROS Other: All systems not noted in ROS Statement are negative. Past Medical History Past Medical History: Cancer, Fibromyalgia Additional Past Medical History / Comment(s): ovarian cyst, stage 2 breast cx- may 21-2022, neuropathy in both lower extremities. History of Any Multi-Drug Resistant Organisms: None Reported Past Surgical History: Cholecystectomy Additional Past Surgical History / Comment(s): bunionectomy, C4 neck surgery 2020, [place], carpel tunnel L hand. left breast lumpectomy Past Anesthesia/Blood Transfusion Reactions: Postoperative Nausea & Vomiting (PONV) Additional Past Anesthesia/Blood Transfusion Reaction / Comment(s): PONV after one surgery Past Psychological History: Anxiety, Depression Smoking Status: Current every day smoker Past Alcohol Use History: None Reported Past Drug Use History: None Reported - Past Family History Mother Family Medical History: No Reported History General Exam Limitations: no limitations General appearance: alert, in no apparent distress Head exam: Present: atraumatic, normocephalic, normal inspection Respiratory exam: Present: normal lung sounds bilaterally, chest wall tenderness (Reproducible left-sided chest wall tenderness). Absent: respiratory distress, wheezes, rales, rhonchi, stridor Cardiovascular Exam: Present: regular rate, normal rhythm, normal heart sounds. Absent: systolic murmur, diastolic murmur, rubs, gallop, clicks Left Shoulder Exam: Present: normal inspection, full ROM (Pain with flexion and extension of left shoulder), tenderness (Diffuse mild tenderness over left shoulder). Absent: swelling, abrasion, erythema Upper Arm exam: Present: normal inspection, full ROM, tenderness (Diffuse tenderness over left upper arm). Absent: swelling Elbow exam: Present: normal inspection, full ROM. Absent: tenderness, swelling Forearm Wrist exam: Present: normal inspection, full ROM. Absent: tenderness, swelling Hand Wrist exam: Present: normal inspection, full ROM. Absent: tenderness, swelling Vascular: Present: normal capillary refill, radial pulse (Sensation intact). Absent: vascular compromise Neurological exam: Present: alert, oriented X3, CN II-XII intact Psychiatric exam: Present: normal affect, normal mood Skin exam: Present: warm, dry, intact, normal color. Absent: rash Course Vital Signs 04/19/24 04/19/24 13:39 17:09 Temperature 97.5 F L 97.7 F Pulse Rate 77 71 Respiratory 18 18 Rate Blood Pressure 148/97 139/86 O2 Sat by Pulse 97 98 Oximetry Medical Decision Making - Medical Decision Making Was pt. sent in by a medical professional or institution (, PA, [facility], urgent care, hospital, or [facility]...) When possible be specific @ -No Did you speak to anyone other than the patient for history (EMS, parent, family, police, friend...)? What history was obtained from this source @ -No Did you review nursing and triage notes (agree or disagree)? Why? @ -I reviewed and agree with nursing and triage notes Were old charts reviewed (outside hosp., previous admission, EMS record, old EKG, old radiological studies, urgent care reports/EKG's, [facility] records)? Report findings @ -No old charts were reviewed Differential Diagnosis (chest pain, altered mental status, abdominal pain women, abdominal pain men, vaginal bleeding, weakness, fever, dyspnea, syncope, headache, dizziness, GI bleed, back pain, seizure, CVA, palpatations, mental health, musculoskeletal)? @ -Differential Musculoskeletal Muscular strain, contusion, ligament sprain, fracture, arthritis, septic arthritis, bursitis, cellulitis, muscle spasm, nerve compression, DVT, arterial occlusion, herpes zoster, electrolyte abnormality, tumor.... This is not meant to be in all inclusive list EKG interpreted by me (3pts min.). @ -None X-rays interpreted by me (1pt min.). @ -Chest x-ray/left shoulder x-ray revealed no acute process CT interpreted by me (1pt min.). @ -None done U/S interpreted by me (1pt. min.). @ -None done What testing was considered but not performed or refused? (CT, X-rays, U/S, labs)? Why? @ -Lab work not performed due to symptoms appear to be MSK in nature, patient has had several workups for similar symptoms before which has been attributed to fibromyalgia/neuropathy What meds were considered but not given or refused? Why? @ -None Did you discuss the management of the patient with other professionals (professionals i.e. , PA, [facility], lab, RT, psych nurse, social worker clinical, careers adviser, teacher, targeting acquisition officer, human services case manager)? Give summary @ -No Was smoking cessation discussed for >3mins.? @ -No Was critical care preformed (if so, how long)? @ -No Were there social determinants of health that impacted care today? How? (Homelessness, low income, unemployed, alcoholism, drug addiction, transportation, low edu. Level, literacy, decrease access to med. care, shelter, rehab)? @ -No Was there de-escalation of care discussed even if they declined (Discuss DNR or withdrawal of care, Hospice)? DNR status @ -No What co-morbidities impacted this encounter? (DM, HTN, Smoking, COPD, CAD, Cancer, CVA, ARF, Chemo, Hep., AIDS, mental health diagnosis, sleep apnea, morbid obesity)? @ -None Was patient admitted / discharged? Hospital course, mention meds given and route, prescriptions, significant lab abnormalities, going to OR and other pertinent info. @ -Patient was discharged. This is a 58-year-old female with history of fibromyalgia and neuropathy presenting with left arm pain x 4 days. Feels similar to previous neuropathy flareups, has had multiple workups for similar complaint. Neurovascularly intact. There is reproducible pain upon palpation of left sided chest. There is pain with flexion and extension of left shoulder. Patient was given IM morphine and p.o. gabapentin. Chest x-ray and left shoulder x-ray revealed no acute process. Upon reevaluation, patient states mild improvement of symptoms. Patient has follow-up appointment tomorrow. Discussed diagnosis of neuropathy as well as supportive care and return precautions. Patient conveys understanding and is agreeable to plan. Case was discussed with my ED attending Dr. Sharif. Patient discharged in stable condition. Undiagnosed new problem with uncertain prognosis? @ -No Drug Therapy requiring intensive monitoring for toxicity (Heparin, Nitro, Insul in, Cardizem)? @ -No Were any procedures done? @ -No Diagnosis/symptom? @ -Neuropathy left arm Acute, or Chronic, or Acute on Chronic? @ -Acute Uncomplicated (without systemic symptoms) or Complicated (systemic symptoms)? @ -Uncomplicated Side effects of treatment? @ -No Exacerbation, Progression, or Severe Exacerbation? @ -No Poses a threat to life or bodily function? How? (Chest pain, USA, VT, pneumonia, PE, COPD, DKA, ARF, appy, cholecystitis, CVA, Diverticulitis, Homicidal, Suicidal, threat to staff... and all critical care pts) @ -No Disposition Clinical Impression: Neuropathy of left upper extremity Disposition: HOME SELF-CARE Condition: Stable Instructions (If sedation given, give patient instructions): Peripheral Neuropathy (ED) Additional Instructions: Follow-up for appointment tomorrow. Please return to the Emergency Department if symptoms worsen or any other concerns. Is patient prescribed a controlled substance at d/c from ED?: No Referrals: Farzaneh Rich DO [Primary Care Provider] - 1-2 days Time of Disposition: 17:01
--- NOTE | 2024-04-19 15:22 | XR ---
EXAMINATION TYPE: XR shoulder complete LT DATE OF EXAM: 04/19/2024 3:05 PM CLINICAL INDICATION: Female, 58 years old with history of left shoulder pain; [facility] COMPARISON: None TECHNIQUE: XR shoulder complete LT; examined in AP, internally rotated and scapular Y projections. FINDINGS: No evidence of acute osseous pathology, joint dislocation, or soft tissue swelling. The remaining po rtions of the visualized chest are unremarkable. Degeneration changes of the acromion, distal clavic le with osteophyte formation. There is osteophyte formation of the glenoid and humeral head. There is joint space narrowing of glenohumeral joint. Surgical clips left axilla. IMPRESSION: 1. No acute osseous pathology. 2. Mild shoulder osteoarthrosis. [facility], , 04/19/2024 3:20 PM
--- NOTE | 2024-04-19 15:23 | XR ---
EXAMINATION TYPE: XR chest 2V DATE OF EXAM: 04/19/2024 3:05 PM CLINICAL INDICATION: Female, 58 years old with history of chest pain; [facility] COMPARISON: Chest radiographs from 03/28/2024 TECHNIQUE: XR chest 2V Frontal view of the chest. FINDINGS: Lungs/Pleura: There is no evidence of pleural effusion, focal consolidation, or pneumothorax. Pulmonary vascularity: Unremarkable. Heart/mediastinum: Cardiomediastinal silhouette is unremarkable. Musculoskeletal: No acute osseous pathology. Other findings: None Lines/Tubes: Unuxcv-l-Yowe projecting over the right hemithorax with distal tip at the cavoatrial junction. IMPRESSION: No acute cardiopulmonary disease/process. [facility], , 04/19/2024 3:20 PM
[2024-04-19 17:11] VITALS: BP 139/86; PULSE 71; TEMP 97.7
== END 2024-04-19 17:12 | disposition home or self-care (01) ==
LOC: EC 13:38
DX: M79.603 Pain in arm, unspecified
CPT/HCPCS: 71046; 96372; 99283

== ENCOUNTER → 2024-04-19 | Outpatient (CLI) | payer BC, OTHER ==
--- NOTE | 2024-04-19 23:18 | BD ---
EXAMINATION TYPE: Axial Bone Density DATE OF EXAM: 04/19/2024 CLINICAL HISTORY: 58 years old Female. ICD-10 CODE: M81.0 AGE-RELATED OSTEOPOROSIS Height: 64.5in Weight: 192lb FRAX RISK QUESTIONS: Secondary Osteoporosis: Current Tobacco Use: yes RISK FACTORS HISTORY OF: MEDICATIONS: EXAM MEASUREMENTS: Bone mineral densitometry was performed using the [employer] System. Bone mineral density as measured about the Lumbar spine is: ----- L1-L4(G/cm2): 1.291 T Score Values are as follows: ----- L1: 0.6 ----- L2: 0.5 ----- L3: 1.3 ----- L4: 1.1 ----- L1-L4: 0.9 Z Score Values are as follows: ----- L1: 0.7 ----- L2: 0.6 ----- L3: 1.4 ----- L4: 1.3 ----- L1-L4: 1.1 First dexa at [facility] Bone mineral density about the R hip (g/cm2): 1.110 Bone mineral density about the L hip (g/cm2): 1.118 T Score values are as follows: -----R Neck: -0.3 -----L Neck: 0.2 -----R Total: 0.8 -----L Total: 0.9 Z Score values are as follows: -----R Neck: 0.3 -----L Neck: 0.7 -----R Total: 1.0 -----L Total: 1.1 First dexa at [facility] FRAX%s: The graph provided illustrates a 5.1% chance for a major osteoporotic fx and a 0.2% chance fo r the hips probability for fx in 10 years time. IMPRESSION: Normal (Values between +1 and -1 indicate normal bone mass). Consider repeating this study in 5 year s or sooner if there is some new clinical indication. NOTE: T-SCORE=SD OF THE YOUNG ADULT MEAN. [facility], , 04/19/2024 11:15 PM
== END | disposition home or self-care (01) ==
LOC: RADBDWWP 13:04
PROVIDERS: ATTEND Internal Medicine Hematology & Oncology
DX: M81.0 Age-related osteoporosis without current pathological fracture
CPT/HCPCS: 77080

== ENCOUNTER → 2024-05-17 | Outpatient (CLI) | payer OTHER ==
--- NOTE | 2024-05-17 09:28 | MM ---
Reason for Exam: Follow-up at short interval from prior study. Last screening mammogram was performed 12 month(s) ago. Patient History: Menarche at age 17. First Full-Term at age 27. Postmenopausal. Breast cancer, left, age 57. 10/26/2023, MG pre op loc each addl LT on the Left side. 10/26/2023, Benign MG pre op needle loc LT on the left side. 05/13/2023, US biopsy breast add'l VAD LT on the Left side. 05/13/2023, Malignant US biopsy breast VAD LT on the left side. Tissue Density: The breasts are heterogeneously dense, which may obscure small masses. Findings: Analyzed By CAD. No new suspicious masses, calcifications or distortions. Overall Assessment: Benign, BI-RAD 2 Management: Screening Mammogram of both breasts in 1 year. Results were given to the patient verbally at the time of exam. Patient should continue monthly self-breast exams. A clinical breast exam by your physician is recommended on an annual basis. This exam should not preclude additional follow-up of suspicious palpable abnormalities. Note on Dayan scores and lifetime risk: 1. A Dayan score greater than 3% is considered moderate risk. If this is the case, consider specialist referral to assess eligibility for a risk reducing agent. 2. If overall lifetime risk for the development of breast cancer is 20% or higher, the patient may qualify for future screening with alternating mammogram and breast MRI. [facility], , 05/17/2024 9:25 AM. Electronically signed and approved by: Zoran Conley DO
== END | disposition home or self-care (01) ==
LOC: RADMAMWWP 08:55
PROVIDERS: ATTEND Surgery
CPT/HCPCS: 77062; 77066

== ENCOUNTER → 2024-07-11 | Outpatient (CLI) | payer OTHER ==
[2024-07-11 12:12] LABS: Basophils % (A) 0 %; Eosinophils # (A) 0.1 k/uL (0-0.7); Eosinophils % (A) 1 %; HCT 39.9 % (34.0-46.0); HGB 13.1 gm/dL (11.4-16.0); Lymphocytes # (A) 1.2 k/uL (1.0-4.8); Lymphocytes % (A) 30 %; MCH 31.3 pg (25.0-35.0); MCHC 32.8 g/dL (31.0-37.0); MCV 95.3 fL (80.0-100.0); Mean Platelet Volume 8.2; Monocytes # (A) 0.1 k/uL (0-1.0); Monocytes % (A) 4 %; Neutrophils # (A) 2.7 k/uL (1.3-7.7); Neutrophils % (A) 64 %; Platelet Count 221 k/uL (150-450); RBC 4.19 m/uL (3.80-5.40); RDW 13.3 % (11.5-15.5); WBC 4.1 k/uL (3.8-10.6)
[2024-07-11 12:30] LABS: ALT 16 U/L (4-34); African American GFR (CKD) >90 (>60 ml/min/1.73 sqM); Albumin 4.3 g/dL (3.5-5.0); Albumin/Globulin Ratio 1.5; Anion Gap 6 mmol/L; Blood Urea Nitrogen 17 mg/dL (7-17); Calcium 9.2 mg/dL (8.4-10.2); Carbon Dioxide 26 mmol/L (22-30); Chloride 106 mmol/L (98-107); Globulin 2.8 g/dL; Glucose 85 mg/dL (74-99); Non-African American GFR(CKD) >90 (>60 ml/min/1.73 sqM); Sodium 138 mmol/L (137-145); Total Bilirubin 0.4 mg/dL (0.2-1.3); Total Protein 7.1 g/dL (6.3-8.2)
[2024-07-11 12:31] LABS: AST 23 U/L (14-36); Alkaline Phosphatase 67 U/L (38-126); Potassium 4.6 mmol/L (3.5-5.1)
--- NOTE | 2024-07-11 13:58 | CT ---
EXAMINATION TYPE: CT abdomen pelvis w con DATE OF EXAM: 07/11/2024 1:32 PM COMPARISON: None. CLINICAL INDICATION: Female, 58 years old with history of R10.813 RIGHT LOWER QUADRANT ABDOMINAL TEND ERNESS; RLQ abdominal tenderness, pain. Eval appendix, hx breast ca stat hold and call TECHNIQUE: CT scan of the abdomen pelvis is performed with IV Contrast, patient injected with 100 mL of Isovue [address] DLP: 1766 mGycm Automated exposure control for dose reduction was used. FINDINGS: LUNG BASES- basilar atelectasis. LIVER/GB- induced attenuation of the liver suggestive of hepatic steatosis. There is a hypodense le raymundo involving the liver measuring 3 Hounsfield units compatible with simple cyst. Postcholecystectom y changes. PANCREAS- No gross abnormality is seen. SPLEEN- No gross abnormality is seen. ADRENALS- thickening of the left adrenal gland too small to characterize likely the basis of benign hyperplasia or adenoma. KIDNEYS/BLADDER-no hydronephrosis. Tiny hypodensity within the left kidney is too small to characteri ze but stable. BOWEL- no evidence of obstruction. Large retained stool burden. No significant diverticular disease. Appendix not seen with certainty. Tiny hiatal hernia. LYMPH NODES- No greater than 1cm abdominal or pelvic lymph nodes are appreciated. OSSEOUS STRUCTURES- multilevel hypertrophic and degenerative changes spine. Mild bilateral hip arthr opathy. OTHER- aorta of normal caliber. IMPRESSION: 1. Appendix is not visualized but there are no secondary signs seen to suggest acute appendicitis. 2. Large retained stool burden correlate for constipation. [facility], , 07/11/2024 1:56 PM
[2024-07-11 19:34] LABS: Chol/HDL Ratio 3.93 Ratio; LDL Cholesterol,Calculated 112.7 mg/dL (0.0-131.0)
== END | disposition home or self-care (01) ==
LOC: RADCTMAIN 11:28
PROVIDERS: ATTEND Family Medicine
DX: R10.813 Right lower quadrant abdominal tenderness (principal); R19.5 Other fecal abnormalities
CPT/HCPCS: 80061; 80053; 85025; 74177; 36415; Q9967

== ENCOUNTER 2024-07-19 16:33 | Emergency (ER) | payer OTHER ==
--- NOTE | 2024-07-19 17:31 | ED ---
General Adult HPI - General Source: patient, RN notes reviewed Mode of arrival: ambulatory Limitations: no limitations <EliDenise - Last Filed: 07/19/24 17:29> - General Source: patient, RN notes reviewed, old records reviewed <Khurram Clay - Last Filed: 07/20/24 00:15> - General Chief complaint: Abdominal Pain Stated complaint: lower abd pain Time Seen by Provider: 07/19/24 16:50 - History of Present Illness Initial comments: Quick [id number] female presents emergency room chief complaint of left lower abdominal pain over the past week. Patient states that she had outpatient CT ordered where she was informed that she is constipated and took a laxative. Stated symptoms resolved however over the past few days she states she has had a decrease in flatulence and worsening left lower quadrant abdominal pain. bowel movement this morning. (Denise Benitez) Is a 58-year-old female who presents emergency department complaining of acute on chronic abdominal pain. Has a history of IBS. She was diagnosed with co nstipation on CT from 8 days ago and has been on laxatives. She has been having bowel movements but is continue to have pain. States it is at the right lower quadrant. Denies guarding or rebound tenderness. Denies any urinary complaints. Denies vaginal discharge or bleeding. States she is still having nonbloody loose stools. Denies any nausea or vomiting. Presents for further evaluation at this time. Originally seen as a quick note. I evaluated patient when she was placed in a room. (Khurram Clay) - Related Data Home Medications Medication Instructions Recorded Confirmed DULoxetine HCL [Cymbalta] 60 mg PO HS 05/07/23 03/28/24 Dicyclomine [Bentyl] 10 mg PO QID PRN 05/07/23 03/28/24 Famotidine [Pepcid] 40 mg PO DAILY PRN 05/07/23 03/28/24 Loratadine [Claritin] 10 mg PO DAILY PRN 05/07/23 03/28/24 buPROPion XL [Wellbutrin XL] 300 mg PO DAILY 05/07/23 03/28/24 Lidocaine-Prilocaine Cream [Emla 1 applic TOPICAL DAILY PRN 06/20/23 03/28/24 Cream 2.5%/2.5%] Ondansetron [Zofran] 4 - 8 mg PO Q4H PRN 06/20/23 03/28/24 Prochlorperazine [Compazine] 10 mg PO Q6H PRN 06/20/23 03/28/24 Calcium Carbonate/Vitamin D3 1 tab PO DAILY 03/28/24 03/28/24 [Calcium 600-Vit D3 10 mcg (400 Iu)] Cephalexin [Keflex] 500 mg PO BID 03/28/24 03/28/24 HYDROcodone/APAP 5-325MG [Schuyler 1 tab PO TID PRN 03/28/24 03/28/24 5-325] Letrozole [Femara] 2.5 mg PO DAILY 03/28/24 03/28/24 Pegfilgrastim [Neulasta] 6 mg SQ Q21D 03/28/24 03/28/24 Pregabalin [Lyrica] 100 mg PO BID PRN 03/28/24 03/28/24 Pregabalin [Lyrica] 100 mg PO DAILY@1100 03/28/24 03/28/24 Pregabalin [Lyrica] 150 mg PO HS 03/28/24 03/28/24 Allergies Allergy/AdvReac Type Severity Reaction Status Date / Time No Known Allergies Allergy Verified 07/19/24 16:51 Review of Systems ROS Other: All systems not noted in ROS Statement are negative. <Denise Benitez - Last Filed: 07/19/24 17:29> ROS Other: All systems not noted in ROS Statement are negative. <Khurram Clay - Last Filed: 07/20/24 00:15> ROS Statement: Those systems with pertinent positive or pertinent negative responses have been documented in the HPI. Review of Systems: CONST: Denies fever EYES: Denies blurry vision ENT: Denies nasal congestion C/V: Denies Chest pain RESP: Denies shortness of breath GI: Endorses abdominal pain : Denies dysuria SKIN: Denies rash. MSK: Denies joint pain. NEURO: Denies headache (Khurram Clay) Past Medical History Past Medical History: Cancer, Fibromyalgia Additional Past Medical History / Comment(s): ovarian cyst, stage 2 breast cx- may 21, neuropathy in both lower extremities. History of Any Multi-Drug Resistant Organisms: None Reported Past Surgical History: Cholecystectomy Additional Past Surgical History / Comment(s): bunionectomy, C4 neck surgery 2020, [place], carpel tunnel L hand. left breast lumpectomy Past Anesthesia/Blood Transfusion Reactions: Postoperative Nausea & Vomiting (PONV) Additional Past Anesthesia/Blood Transfusion Reaction / Comment(s): PONV after one surgery Past Psychological History: Anxiety, Depression Smoking Status: Current every day smoker Past Alcohol Use History: None Reported Past Drug Use History: None Reported - Past Family History Mother Family Medical History: No Reported History <Denise Benitez - Last Filed: 07/19/24 17:29> General Exam Limitations: no limitations <Denise Benitez - Last Filed: 07/19/24 17:29> <Khurram Clay - Last Filed: 07/20/24 00:15> - General Exam Comments Initial Comments: Visual Physical Exam Vital signs reviewed General: Well-appearing, nontoxic, no acute distress. Head: Normocephalic, atraumatic Eyes: PERRLA, EOMI ENT: Airway patent Chest: Nonlabored breathing Skin: No visual rash, normal skin tone Neuro: Alert and oriented 3 Musculoskeletal: No gross abnormalities (Denise Benitez) General: Appears in no acute distress. HEAD: Normal with no signs of head trauma. EYES: EOMI. ENT: Hearing grossly intact, normal oropharynx. RESPIRATORY: Clear breath sounds bilaterally. No wheezes, rales, or rhonchi. C/V: Regular rate and rhythm. S1 and S2 auscultated, no edema, peripheral pulses 2+ and intact throughout ABD: Abdomen soft, nondistended. Tender to palpation in the right lower quadrant and right flank. No guarding or rebound tenderness. No peritoneal signs. EXT: Normal range of motion, no obvious deformity SKIN: No rashes or lesions observed on exposed skin. NEURO: Alert and oriented x 4. (Khurram Clay) Course Vital Signs 07/19/24 07/19/24 07/19/24 16:47 21:31 23:06 Temperature 97.2 F L 97.8 F Pulse Rate 91 76 86 Respiratory 18 18 16 Rate Blood Pressure 132/82 128/89 138/81 O2 Sat by Pulse 100 100 96 Oximetry Medical Decision Making <Denise Benitez - Last Filed: 07/19/24 17:29> - Lab Data Result diagrams: 07/19/24 19:09 07/19/24 19:09 <Khurram Clay - Last Filed: 07/20/24 00:15> - Medical Decision Making I completed the quick note portion of this chart signed Denise Benitez PA-C (Denise Benitez) Was pt. sent in by a medical professional or institution (DON Schrader, ACT TUTOR, urgent care, hospital, or snf...) When possible be specific @ -No Did you speak to anyone other than the patient for history (EMS, parent, family, police, friend...)? What history was obtained from this source @ -No Did you review nursing and triage notes (agree or disagree)? Why? @ -I reviewed and agree with nursing and triage notes Were old charts reviewed (outside hosp., previous admission, EMS record, old EKG, old radiological studies, urgent care reports/EKG's, snf records)? Report findings @ -Reviewed prior CT abdomen pelvis from July 11 which revealed constipation. Differential Diagnosis (chest pain, altered mental status, abdominal pain women, abdominal pain men, vaginal bleeding, weakness, fever, dyspnea, syncope, headache, dizziness, GI bleed, back pain, seizure, CVA, palpatations, mental health, musculoskeletal)? @ -Differential Abdominal Pain Women: Appendicitis, Cholecystitis, diverticulosis, ischemic bowel, pancreatitis, he patitis, UTI, gastroenteritis, AAA, incarcerated hernia, bowel obstruction, constipation, inflammatory bowel, hepatitis, peptic ulcer disease, splenic infarction, perforated viscus, vulvitis, ovarian torsion, PID, kidney stone, placenta abruption, this is not meant to be an all-inclusive list EKG interpreted by me (3pts min.). @ -None done X-rays interpreted by me (1pt min.). @ -None done CT interpreted by me (1pt min.). @ -CT abdomen pelvis demonstrates no obvious acute abdominal process to explain her current symptoms. Patient does have a hepatic cyst as well as a renal cyst which were described to her. U/S interpreted by me (1pt. min.). @ -None done What testing was considered but not performed or refused? (CT, X-rays, U/S, labs)? Why? @ -None What meds were considered but not given or refused? Why? @ -None Did you discuss the management of the patient with other professionals (professionals i.e. , PA, ACT TUTOR, lab, RT, psych nurse, social media marketing specialist, education courses sales representative, teacher, nuclear officer, onsite case manager)? Give summary @ -No Was smoking cessation discussed for >3mins.? @ -No Was critical care preformed (if so, how long)? @ -No Were there social determinants of health that impacted care today? How? (Homelessness, low income, unemployed, alcoholism, drug addiction, transportation, low edu. Level, literacy, decrease access to med. care, [facility], rehab)? @ -No Was there de-escalation of care discussed even if they declined (Discuss DNR or withdrawal of care, Hospice)? DNR status @ -No What co-morbidities impacted this encounter? (DM, HTN, Smoking, COPD, CAD, Cancer, CVA, ARF, Chemo, Hep., AIDS, mental health diagnosis, sleep apnea, morbid obesity)? @ -None Was patient admitted / discharged? Hospital course, mention meds given and route, prescriptions, significant lab abnormalities, going to OR and other pertinent info. @ -Patient presents with acute on chronic pain. She is a history of abdominal pain. Thought it was constipation but she is still having pain despite having bowel movements. We will obtain an abdominal workup and repeat CT imaging. Patient was in agreement with this plan. She will be symptomatically treat with IV analgesia medications, Zofran, Protonix, fluids. Vitals are within acceptable limits. Laboratory studies are all within acceptable limits including normal lactic acid of 0.7. Patient's urinalysis is a contaminated catch. Viral swabs negative. CT imaging revealed cyst in the kidney as well as liver however no obvious acute process to explain her current symptoms. Discussed workup with her including the cyst. She expressed understanding. She will be discharged home at this time. She may require colonoscopy if symptoms persist. She already has Bentyl and analgesia medications and Zofran at home. Discussed it could be related to IBS but difficult to definitively diagnose at this time. She was in agreement this plan. Strict return precautions discussed. I instructed the patient to follow up with their PCP in the next 1-3 days. I explained that the patient should return to the emergency department if they exp erience any worsening symptoms. Strict return precautions were discussed with the patient. The patient expressed understanding of these instructions. I answered all questions that the patient had. The patient was discharged home in good condition with their prescriptions and follow up information. Undiagnosed new problem with uncertain prognosis? @ -No Drug Therapy requiring intensive monitoring for toxicity (Heparin, Nitro, Insulin, Cardizem)? @ -No Were any procedures done? @ -No Diagnosis/symptom? @ -Abdominal pain of unknown etiology Acute, or Chronic, or Acute on Chronic? @ -Acute Uncomplicated (without systemic symptoms) or Complicated (systemic symptoms)? @ -Complicated Side effects of treatment? @ -No Exacerbation, Progression, or Severe Exacerbation? @ -No Poses a threat to life or bodily function? How? (Chest pain, USA, OR, pneumonia, PE, COPD, DKA, ARF, appy, cholecystitis, CVA, Diverticulitis, Homicidal, Suicidal, threat to staff... and all critical care pts) @ -Unlikely at this time (Khurram Clay) - Lab Data Lab Results 07/19/24 07/19/24 07/19/24 Range/Units 19:09 19:09 21:38 WBC 5.7 (3.8-10.6) k/uL RBC 4.24 (3.80-5.40) m/uL Hgb 13.1 (11.4-16.0) gm/dL Hct 40.4 (34.0-46.0) % MCV 95.1 (80.0-100.0) fL MCH 30.9 (25.0-35.0) pg MCHC 32.5 (31.0-37.0) g/dL RDW 13.4 (11.5-15.5) % Plt Count 243 (150-450) k/uL MPV 7.6 Neutrophils % 65 % Lymphocytes % 29 % Monocytes % 4 % Eosinophils % 2 % Basophils % 0 % Neutrophils # 3.7 (1.3-7.7) k/uL Lymphocytes # 1.6 (1.0-4.8) k/uL Monocytes # 0.2 (0-1.0) k/uL Eosinophils # 0.1 (0-0.7) k/uL Basophils # 0.0 (0-0.2) k/uL Sodium 141 (137-145) mmol/L Potassium 4.1 (3.5-5.1) mmol/L Chloride 110 H (98-107) mmol/L Carbon Dioxide 28 (22-30) mmol/L Anion Gap 3 mmol/L BUN 20 H (7-17) mg/dL Creatinine 0.75 (0.52-1.04) mg/dL Est GFR (CKD-EPI)AfAm >90 (>60 ml/min/1.73 sqM) Est GFR (CKD-EPI)NonAf 90 (>60 ml/min/1.73 sqM) Glucose 101 H (74-99) mg/dL Plasma Lactic Acid Ronal 0.7 (0.7-2.0) mmol/L Calcium 9.2 (8.4-10.2) mg/dL Magnesium 2.0 (1.6-2.3) mg/dL Total Bilirubin 0.2 (0.2-1.3) mg/dL AST 18 (14-36) U/L ALT 14 (4-34) U/L Alkaline Phosphatase 82 (38-126) U/L Total Protein 6.6 (6.3-8.2) g/dL Albumin 4.0 (3.5-5.0) g/dL Amylase 62 (30-110) U/L Lipase 130 (23-300) U/L Urine Color Urine Appearance (Clear) Urine pH (5.0-8.0) Ur Specific Mentor (1.001-1.035) Urine Protein (Negative) Urine Glucose (UA) (Negative) Urine Ketones (Negative) Urine Blood (Negative) Urine Nitrite (Negative) Urine Bilirubin (Negative) Urine Urobilinogen (<2.0) mg/dL Ur Leukocyte Esterase (Negative) Urine RBC (0-5) /hpf Urine WBC (0-5) /hpf Ur Squamous Epith Cells (0-4) /hpf Urine Bacteria (None) /hpf Hyaline Casts (0-2) /lpf Urine Mucus (None) /hpf Influenza Type A (PCR) (Not Detectd) Influenza Type B (PCR) (Not Detectd) RSV (PCR) (Not Detectd) SARS-CoV-2 (PCR) (Not Detectd) 07/19/24 07/19/24 Range/Units 21:43 21:43 WBC (3.8-10.6) k/uL RBC (3.80-5.40) m/uL Hgb (11.4-16.0) gm/dL Hct (34.0-46.0) % MCV (80.0-100.0) fL MCH (25.0-35.0) pg MCHC (31.0-37.0) g/dL RDW (11.5-15.5) % Plt Count (150-450) k/uL MPV Neutrophils % % Lymphocytes % % Monocytes % % Eosinophils % % Basophils % % Neutrophils # (1.3-7.7) k/uL Lymphocytes # (1.0-4.8) k/uL Monocytes # (0-1.0) k/uL Eosinophils # (0-0.7) k/uL Basophils # (0-0.2) k/uL Sodium (137-145) mmol/L Potassium (3.5-5.1) mmol/L Chloride (98-107) mmol/L Carbon Dioxide (22-30) mmol/L Anion Gap mmol/L BUN (7-17) mg/dL Creatinine (0.52-1.04) mg/dL Est GFR (CKD-EPI)AfAm (>60 ml/min/1.73 sqM) Est GFR (CKD-EPI)NonAf (>60 ml/min/1.73 sqM) Glucose (74-99) mg/dL Plasma Lactic Acid Ronal (0.7-2.0) mmol/L Calcium (8.4-10.2) mg/dL Magnesium (1.6-2.3) mg/dL Total Bilirubin (0.2-1.3) mg/dL AST (14-36) U/L ALT (4-34) U/L Alkaline Phosphatase (38-126) U/L Total Protein (6.3-8.2) g/dL Albumin (3.5-5.0) g/dL Amylase (30-110) U/L Lipase (23-300) U/L Urine Color Light Yellow Urine Appearance Clear (Clear) Urine pH 5.0 (5.0-8.0) Ur Specific Mentor 1.026 (1.001-1.035) Urine Protein Negative (Negative) Urine Glucose (UA) Negative (Negative) Urine Ketones Negative (Negative) Urine Blood Negative (Negative) Urine Nitrite Negative (Negative) Urine Bilirubin Negative (Negative) Urine Urobilinogen <2.0 (<2.0) mg/dL Ur Leukocyte Esterase Large H (Negative) Urine RBC 1 (0-5) /hpf Urine WBC 4 (0-5) /hpf Ur Squamous Epith Cells 5 H (0-4) /hpf Urine Bacteria Rare H (None) /hpf Hyaline Casts 4 H (0-2) /lpf Urine Mucus Occasional H (None) /hpf Influenza Type A (PCR) Not Detected (Not Detectd) Influenza Type B (PCR) Not Detected (Not Detectd) RSV (PCR) Not Detected (Not Detectd) SARS-CoV-2 (PCR) Not Detected (Not Detectd) Disposition <Denise Benitez - Last Filed: 07/19/24 17:29> Is patient prescribed a controlled substance at d/c from ED?: No Time of Disposition: 22:55 <Khurram Clay - Last Filed: 07/20/24 00:15> Clinical Impression: Abdominal pain of unknown etiology Disposition: HOME SELF-CARE Condition: Good Instructions (If sedation given, give patient instructions): Abdominal Pain (ED) Additional Instructions: Follow up with your PCP. Return if worsening symptoms. You may need a colonoscopy if symptoms persist. Follow up with GI specialist. Referrals: Farzaneh Rich DO [Primary Care Provider] - 1-2 days Amy Eastman MD [STAFF PHYSICIAN] - 1-2 days
[2024-07-19 19:17] LABS: Basophils % (A) 0 %; Eosinophils # (A) 0.1 k/uL (0-0.7); Eosinophils % (A) 2 %; HCT 40.4 % (34.0-46.0); HGB 13.1 gm/dL (11.4-16.0); Lymphocytes # (A) 1.6 k/uL (1.0-4.8); Lymphocytes % (A) 29 %; MCH 30.9 pg (25.0-35.0); MCHC 32.5 g/dL (31.0-37.0); MCV 95.1 fL (80.0-100.0); Mean Platelet Volume 7.6; Monocytes # (A) 0.2 k/uL (0-1.0); Monocytes % (A) 4 %; Neutrophils # (A) 3.7 k/uL (1.3-7.7); Neutrophils % (A) 65 %; Platelet Count 243 k/uL (150-450); RBC 4.24 m/uL (3.80-5.40); RDW 13.4 % (11.5-15.5); WBC 5.7 k/uL (3.8-10.6)
[2024-07-19 19:25] LABS: ALT 14 U/L (4-34); AST 18 U/L (14-36); African American GFR (CKD) >90 (>60 ml/min/1.73 sqM); Alkaline Phosphatase 82 U/L (38-126); Amylase 62 U/L (30-110); Anion Gap 3 mmol/L; Blood Urea Nitrogen 20 mg/dL (7-17); Calcium 9.2 mg/dL (8.4-10.2); Carbon Dioxide 28 mmol/L (22-30); Chloride 110 mmol/L (98-107); Glucose 101 mg/dL (74-99); Lipase 130 U/L (23-300); Non-African American GFR(CKD) 90 (>60 ml/min/1.73 sqM); Potassium 4.1 mmol/L (3.5-5.1); Sodium 141 mmol/L (137-145); Total Bilirubin 0.2 mg/dL (0.2-1.3); Total Protein 6.6 g/dL (6.3-8.2)
[2024-07-19] MEDS: MORPHINE SULFATE 4 MG/ML SYRINGE IV STA (21:41)
[2024-07-19] MEDS: SODIUM CHLORIDE 0.9% 1,000 ML IV STA (21:48)
[2024-07-19] MEDS: ONDANSETRON 4 MG/2 ML VIAL IVP STA (21:49)
[2024-07-19] MEDS: PANTOPRAZOLE 40 MG/10 ML VIAL IVP STA (21:50)
[2024-07-19] MEDS: HYDROmorphone 1 MG/ML 1 ML SYRINGE IVP STA (21:53)
[2024-07-19 22:17] LABS: Appearance,Urine Clear (Clear); Bacteria,Urine Rare /hpf; Bilirubin,Urine Negative (Negative); Blood,Urine Negative (Negative); Color,Urine Light Yellow; Glucose,Urine (UA) Negative (Negative); Hyaline Casts,Urine 4 /lpf (0-2); Ketones,Urine Negative (Negative); Leukocyte Esterase,Urine Large (Negative); Mucus,Urine Occasional /hpf; Nitrite,Urine Negative (Negative); Protein,Urine Negative (Negative); RBC,Urine 1 /hpf (0-5); Specific Gravity,Urine 1.026 (1.001-1.035); Squamous Epithelial Cell,Urine 5 /hpf (0-4); Urobilinogen,Urine <2.0 mg/dL (<2.0); WBC,Urine 4 /hpf (0-5)
--- NOTE | 2024-07-19 22:19 | CT ---
EXAMINATION TYPE: CT abdomen pelvis w con DATE OF EXAM: 07/19/2024 HISTORY: Pt states lower abdominal pain and lower back pain ongoing for the past week. Pt states was seen by PCP and was prescribed laxatives. CT DLP: 1463.7mGycm Automated Exposure Control for Dose Reduction was Utilized. CONTRAST: CT scan of the abdomen and pelvis is performed with IV Contrast, patient injected with 100 mL of Isov ue 300. COMPARISON: Prior CT 8 days earlier FINDINGS: LUNG BASES: Asymmetric trabeculation and skin thickening left breast corresponds to history of left-s ided breast cancer. LIVER/GB: Cholecystectomy clips are redemonstrated. Liver is diffusely low dense consistent with fatt y infiltrative hepatocellular disease. There is redemonstration of 1.8 cm simple thin-walled cyst in the central right hepatic lobe axial image 24. PANCREAS: No significant abnormality is seen. SPLEEN: No significant abnormality is seen. ADRENALS: Asymmetric thickening of left adrenal gland consistent with benign lipid rich hyperplasia i s redemonstrated. KIDNEYS: Subcentimeter low dense lesion medially left kidney delayed axial image 31 is too small to f urther characterize but presumed benign. BOWEL: No abnormal small or large bowel dilatation. UTERUS/ADNEXA: No gross abnormality seen. LYMPH NODES: No greater than 1cm abdominal or pelvic lymph nodes are appreciated. OSSEOUS STRUCTURES: Moderate narrowing and spurring of both hip joints is present. OTHER: No significant additional abnormality is seen. IMPRESSION: No significant new or acute finding is seen to account for patient's clinical symptoms. [facility], , 07/19/2024 10:17 PM
[2024-07-19 23:07] VITALS: BP 138/81; PULSE 86; RESP 16; TEMP 97.8
== END 2024-07-19 23:08 | disposition home or self-care (01) ==
LOC: EC 16:33
DX: R10.32 Left lower quadrant pain (principal); F17.200 Nicotine dependence, unspecified, uncomplicated
CPT/HCPCS: 36415; 80053; 82150; 83605; 83690; 83735; 85025; 81001; 87636; 74177; 99284; 96374; 96375 ×2; 96361; J2405; J1171; Q9967; J2470

== ENCOUNTER 2024-08-25 18:18 | Emergency (ER) | payer OTHER ==
[2024-08-25 18:29] VITALS: TEMP 97.5
[2024-08-25] MEDS: MORPHINE SULFATE 4 MG/ML SYRINGE IM STA (19:08)
--- NOTE | 2024-08-25 19:15 | ED ---
Fall HPI - General Chief Complaint: Fall Stated Complaint: Fall-Head injury Time Seen by Provider: 08/25/24 18:30 Source: patient, RN notes reviewed Mode of arrival: wheelchair - History of Present Illness Initial Comments: This is a 58-year-old female presenting to the emergency department for complaint of a fall. Patient states that a few hours prior to arrival she was at a gas station tending to get gas when she slipped on the running board of her car causing her to fall striking the back of her head on the running board and injuring her left elbow. Patient denies loss conscious the time of the event however states that she is having a headache and mild neck pain. She endorses pain to the left upper extremity most notable over the left elbow and shoulder. She denies paresthesias of bilateral upper extremities. Denies blood thinner use. - Related Data Home Medications Medication Instructions Recorded Confirmed DULoxetine HCL [Cymbalta] 60 mg PO HS 05/07/23 03/28/24 Dicyclomine [Bentyl] 10 mg PO QID PRN 05/07/23 03/28/24 Famotidine [Pepcid] 40 mg PO DAILY PRN 05/07/23 03/28/24 Loratadine [Claritin] 10 mg PO DAILY PRN 05/07/23 03/28/24 buPROPion XL [Wellbutrin XL] 300 mg PO DAILY 05/07/23 03/28/24 Lidocaine-Prilocaine Cream [Emla 1 applic TOPICAL DAILY PRN 06/20/23 03/28/24 Cream 2.5%/2.5%] Ondansetron [Zofran] 4 - 8 mg PO Q4H PRN 06/20/23 03/28/24 Prochlorperazine [Compazine] 10 mg PO Q6H PRN 06/20/23 03/28/24 Calcium Carbonate/Vitamin D3 1 tab PO DAILY 03/28/24 03/28/24 [Calcium 600-Vit D3 10 mcg (400 Iu)] Cephalexin [Keflex] 500 mg PO BID 03/28/24 03/28/24 HYDROcodone/APAP 5-325MG [Skipwith 1 tab PO TID PRN 03/28/24 03/28/24 5-325] Letrozole [Femara] 2.5 mg PO DAILY 03/28/24 03/28/24 Pegfilgrastim [Neulasta] 6 mg SQ Q21D 03/28/24 03/28/24 Pregabalin [Lyrica] 100 mg PO BID PRN 03/28/24 03/28/24 Pregabalin [Lyrica] 100 mg PO DAILY@1100 03/28/24 03/28/24 Pregabalin [Lyrica] 150 mg PO HS 03/28/24 03/28/24 Allergies Allergy/AdvReac Type Severity Reaction Status Date / Time No Known Allergies Allergy Verified 08/25/24 18:23 Review of Systems ROS Statement: Those systems with pertinent positive or pertinent negative responses have been documented in the HPI. ROS Other: All systems not noted in ROS Statement are negative. Past Medical History Past Medical History: Cancer, Fibromyalgia Additional Past Medical History / Comment(s): ovarian cyst, stage 2 breast cx- may 21-2022, neuropathy in both lower extremities. History of Any Multi-Drug Resistant Organisms: None Reported Past Surgical History: Cholecystectomy Additional Past Surgical History / Comment(s): bunionectomy, C4 neck surgery 2020, [place], carpel tunnel L hand. left breast lumpectomy Past Anesthesia/Blood Transfusion Reactions: Postoperative Nausea & Vomiting (PONV) Additional Past Anesthesia/Blood Transfusion Reaction / Comment(s): PONV after one surgery Past Psychological History: Anxiety, Depression Smoking Status: Current every day smoker Past Alcohol Use History: None Reported Past Drug Use History: None Reported - Past Family History Mother Family Medical History: No Reported History General Exam Limitations: physical limitation Eye exam: Present: normal appearance, PERRL, EOMI. Absent: scleral icterus, conjunctival injection, periorbital swelling Neck exam: Present: normal inspection. Absent: tenderness, meningismus, lymphadenopathy Respiratory exam: Present: normal lung sounds bilaterally. Absent: respiratory distress, wheezes, rales, rhonchi, stridor Cardiovascular Exam: Present: regular rate, normal rhythm, normal heart sounds. Absent: systolic murmur, diastolic murmur, rubs, gallop, clicks GI/Abdominal exam: Present: soft, normal bowel sounds. Absent: distended, tenderness, guarding, rebound, rigid Left Upper Arm exam: Absent: swelling, laceration, deformity, crepidus Elbow exam: Present: tenderness. Absent: ecchymosis, deformity Forearm Wrist exam: Absent: deformity Neuro motor exam: Present: wrist extension intact, thumb opposition intact Vascular: Present: normal capillary refill, radial pulse (2+). Absent: vascular compromise Back exam: Present: normal inspection Neurological exam: Present: alert, oriented X3, CN II-XII intact Course Vital Signs 08/25/24 08/25/24 18:23 20:00 Temperature 97.5 F L Pulse Rate 92 79 Respiratory 20 18 Rate Blood Pressure 141/92 112/86 O2 Sat by Pulse 99 97 Oximetry Medical Decision Making - Medical Decision Making Was pt. sent in by a medical professional or institution (, PA, INSTRUMENT SETTER, urgent care, hospital, or shelter...) When possible be specific @ -No Did you speak to anyone other than the patient for history (EMS, parent, family, police, friend...)? What history was obtained from this source @ -No Did you review nursing and triage notes (agree or disagree)? Why? @ -I reviewed and agree with nursing and triage notes Were old charts reviewed (outside hosp., previous admission, EMS record, old EKG, old radiological studies, urgent care reports/EKG's, shelter records)? Report findings @ -No old charts were reviewed Differential Diagnosis (chest pain, altered mental status, abdominal pain women, abdominal pain men, vaginal bleeding, weakness, fever, dyspnea, syncope, headache, dizziness, GI bleed, back pain, seizure, CVA, palpatations, mental health, musculoskeletal)? @ -Intracranial hemorrhage, concussion, cervical neck fracture, cervical neck sprain, humerus fracture, shoulder fracture, elbow sprain, this list is not all inclusive EKG interpreted by me (3pts min.). @ -none X-rays interpreted by me (1pt min.). @ -XR of the left elbow, humerus, and shoulder no acute osseous abnormality CT interpreted by me (1pt min.). @ -CT of the brain and C-spine without contrast no acute intracranial process or cervical spine abnormality, noted postsurgical anterior fusion at C5-C6 U/S interpreted by me (1pt. min.). @ -None done What testing was considered but not performed or refused? (CT, X-rays, U/S, labs)? Why? @ -None What meds were considered but not given or refused? Why? @ -None Did you discuss the management of the patient with other professionals (professionals i.e. , PA, INSTRUMENT SETTER, lab, RT, psych nurse, mental health social worker, certified bench jeweler technician, teacher, military police officer, telephonic case manager)? Give summary @ -No Was smoking cessation discussed for >3mins.? @ -No Was critical care preformed (if so, how long)? @ -No Were there social determinants of health that impacted care today? How? (Homelessness, low income, unemployed, alcoholism, drug addiction, transportation, low edu. Level, literacy, decrease access to med. care, group home, rehab)? @ -No Was there de-escalation of care discussed even if they declined (Discuss DNR or withdrawal of care, Hospice)? DNR status @ -No What co-morbidities impacted this encounter? (DM, HTN, Smoking, COPD, CAD, Cancer, CVA, ARF, Chemo, Hep., AIDS, mental health diagnosis, sleep apnea, morbid obesity)? @ -None Was patient admitted / discharged? Hospital course, mention meds given and route, prescriptions, significant lab abnormalities, going to OR and other pertinent info. @ -Discharge. 58-year-old female presenting after fall. Started to have c- collar in place. She is neuro vastly intact of bilateral upper extremities. No acute neurological deficits. She is provided with dose of pain medication. X- ray of the left elbow, humerus, shoulder no acute os abnormality. CT of the brain and C-spine is unremarkable. Recommend patient continue supportive treatment at home. Case discussed with Dr. Sharif Undiagnosed new problem with uncertain prognosis? @ -No Drug Therapy requiring intensive monitoring for toxicity (Heparin, Nitro, Insulin, Cardizem)? @ -No Were any procedures done? @ -No Diagnosis/symptom? @ -elbow sprain Acute, or Chronic, or Acute on Chronic? @ -acute Uncomplicated (without systemic symptoms) or Complicated (systemic symptoms)? @ -uncomplicated Side effects of treatment? @ -No Exacerbation, Progression, or Severe Exacerbation? @ -No Poses a threat to life or bodily function? How? (Chest pain, [place], [place], pneumonia, PE, COPD, DKA, ARF, appy, cholecystitis, CVA, Diverticulitis, Homicidal, Suicidal, threat to staff... and all critical care pts) @ -No Disposition Clinical Impression: Fall, Elbow sprain Disposition: HOME SELF-CARE Condition: Good Instructions (If sedation given, give patient instructions): Elbow Sprain (ED) Additional Instructions: Please return to the Emergency Department if symptoms worsen or any other concerns. Is patient prescribed a controlled substance at d/c from ED?: No Referrals: Farzaneh Rich DO [Primary Care Provider] - 1-2 days Time of Disposition: 20:09
--- NOTE | 2024-08-25 19:18 | CT ---
EXAMINATION TYPE: CT brain hetal wo con DATE OF EXAM: 08/25/2024 7:05 PM COMPARISON: None. CLINICAL INDICATION: Female, 58 years old with history of fall, [place], Pt to ED for slip and fall, hitti ng head and elbow on running board of vehicle. States pain shoots from elbow to neck. Denies LOC, b lood thinners. Endorses neck pain., pain TECHNIQUE: CT of the brain is performed utilizing 3 mm thick sections through the posterior fossa and 3 mm thick sections through the remaining calvarium. Study is performed within 24 hours of arrival to the hospital. Contrast used: mL of , (none if empty) CT DLP: 1359.9 mGycm, Automated exposure control for dose reduction was used. FINDINGS: No abnormal hyperdensity is present to suggest an acute intracranial hemorrhage. No mass lesion is evident. No acute infarcts are evident. Ventricles and sulci are appropriate for the patient age. Paranasal sinuses and mastoid air cells within the [id number] are clear. IMPRESSIONS: 1. No acute intracranial process. Follow-up MRI can be performed as clinically indicated. CT cervical spine. COMPARISON: None TECHNIQUE: CT of the cervical spine is performed in the axial plane at 2 mm thick sections. Reconstr ucted images in the coronal, and sagittal plane are reviewed on the computer. FINDINGS: No acute fractures are evident. Vertebral body alignment is normal. Anterior cervical fusion at C5-6 is present. There is narrowing of disc height at this level. Some na rrowing of the C6-7 and C7-T1 disc space present. Prevertebral space is normal. Vertebral body heights are preserved. No spinal canal stenosis is evident. No neural foraminal stenosis is evident. IMPRESSION: 1. No acute osseous abnormality. 2. Postsurgical anterior fusion C5-6. [facility], Workstation: [facility], 08/25/2024 7:16 PM
--- NOTE | 2024-08-25 19:55 | XR ---
EXAMINATION TYPE: XR shoulder complete LT DATE OF EXAM: 08/25/2024 7:44 PM COMPARISON: None. CLINICAL INDICATION: Female, 58 years old with history of fall, Pain TECHNIQUE: XR shoulder complete LT view(s) obtained. FINDINGS: The humeral head articulates with the glenoid. The acromio-clavicular junction is normal. No acute fractures or dislocations are evident. A follow up study can be performed 7-10 days from acute trauma for continued pain. MRI can be perfor med if soft tissue evaluation would be of benefit. IMPRESSION: 1. No acute osseous shoulder abnormality. [facility], Workstation: [facility], 08/25/2024 7:53 PM
--- NOTE | 2024-08-25 19:56 | XR ---
EXAMINATION TYPE: XR humerus LT DATE OF EXAM: 08/25/2024 7:48 PM COMPARISON: None. CLINICAL INDICATION: Female, 58 years old with history of fall, pain TECHNIQUE: 2 view(s) obtained. FINDINGS: Shoulder appears unremarkable. Elbow appears unremarkable on these images. No acute fractures are christian dent. Surgical clips are within the axillary region. IMPRESSION: 1. No acute osseous abnormalities left humerus. [facility], Workstation: [facility], 08/25/2024 7:54 PM
--- NOTE | 2024-08-25 19:57 | XR ---
EXAMINATION TYPE: XR elbow complete LT DATE OF EXAM: 08/25/2024 7:53 PM COMPARISON: None. CLINICAL INDICATION: Female, 58 years old with history of fall, pain TECHNIQUE: 3 view(s) obtained. FINDINGS: Radial head aligns normally with the humerus. No acute fractures or dislocations evident. Anterior fa t pad is normal. No elevation of posterior fat pad is evident which is normal. Soft tissues appear un remarkable. Follow up exams can be performed 7-10 days from acute trauma for continued pain. IMPRESSION: 1. No acute osseous abnormalities left elbow. [facility], Workstation: [facility], 08/25/2024 7:55 PM
[2024-08-25 20:01] VITALS: PULSE 79; RESP 18
[2024-08-25 20:18] VITALS: BP 129/73
== END 2024-08-25 20:21 | disposition home or self-care (01) ==
LOC: EC 18:18
DX: S53.402A Unspecified sprain of left elbow, initial encounter (principal); F17.200 Nicotine dependence, unspecified, uncomplicated; W01.0XXA Fall on same level from slipping, tripping and stumbling without subsequent striking against object, initial encounter
CPT/HCPCS: 73030; 73060; 73080; 72125; 70450; 99284; 96372; J2270